=== PATIENT | male | born 1950 | race African-American/Black ===

== ENCOUNTER 2017-06-18 03:54 | Inpatient (IN) | payer MEDICARE ==
[2017-06-18 04:27] LABS: Bilirubin Small (Negative); Blood, Urine Negative (Negative); Clarity CLEAR (Clear); Glucose, Urine (Dipstick) 100 mg/dL (Negative); Leukocyte Negative (Negative); Nitrite Negative (Negative); Protein, Urine (Dipstick) 100 mg/dL (Neg-Trace); Specific Gravity, Urine 1.028 (1.002-1.036); pH, Urine 5.5 (5.0-9.0)
[2017-06-18 04:29] LABS: #Lymphocytes 0.4 thou/uL (1.20-3.40); #Monocytes 0.3 thou/uL (0.11-0.59); #Neutrophils 1.8 thou/uL (1.40-6.50); %Basophils 0.1 % (0.0-1.0); %Eosinophils 1.3 % (0.0-10.0); %Lymphocytes 15.2 % (21.0-51.0); %Monocytes 11.1 % (0.0-10.0); %Neutrophils 72.3 % (42.0-75.0); Hemoglobin 12.9 g/dL (14.0-18.0); Mean Corpuscular HGB CONC 33.2 g/dL (32.0-36.0); Mean Corpuscular Hemoglobin 30.2 pg (27.0-31.0); Mean Platelet Volume 6.6 fL (7.4-10.4); Platelet Count 140 thou/uL (130-400); RBC Distribution Width 11.8 % (11.5-14.5); Red Blood Cell (RBC) Count 4.26 mill/uL (4.70-6.10); White Blood Cell (WBC) Count 2.5 thou/uL (4.8-10.8)
[2017-06-18 04:30] LABS: Bacteria/HPF None Seen HPF (None Seen); Pathc Cast-AUWi Flag 2.32 (0-2.49); Squamous Epithelial 0-3 HPF (0-3); WBC/HPF 0-3 HPF (0-3)
[2017-06-18 04:33] LABS: Hyaline Casts/LPF 0-3 HYALINE CAST LPF (0-3 Hyaline)
[2017-06-18 04:34] LABS: Amphetamine Not Detected (NotDetected); Barbiturates Screen Not Detected (NotDetected); Benzodiazepine Screen Not Detected (NotDetected); Cocaine Metabolite Screen Detected (NotDetected); Medtox Control Line Valid? VALID (VALID); Medtox Reader # READER 1; Methadone Not Detected (NotDetected); Methamphetamine Not Detected (NotDetected); Opiate Screen Not Detected (NotDetected); Oxycodone Screen Not Detected (NotDetected); Phencyclidine (PCP) Not Detected (NotDetected); THC/Cannabinoid Screen Not Detected (NotDetected); Tricyclic Screen Not Detected (NotDetected)
[2017-06-18 04:36] LABS: PTT 25.7 SEC (22.9-36.1)
[2017-06-18 04:38] LABS: D-Dimer Test 0.3 *mcg/mL (0.27-0.43)
[2017-06-18 04:38] LABS: Actual Bicarbonate (HCO3a) 24.7 mEq/L (22-26); Base Excess (BEa) -1.6 mEq/L (0 (+/-) 2.5); CO2 Tension 49.8 mmHg (35.0-45.0); O2 Tension (PaO2) 87.4 mmHg (80.0-100.0); pH, Arterial 7.31 (7.35-7.45)
[2017-06-18 04:39] LABS: Hematocrit-ABG 36.7 % (42.0-52.0); Hemoglobin (Hb) 8.7 g/dL (14.0-18.0)
[2017-06-18 04:40] LABS: Analyzer IN Cardio ER; Calcium, Ionized 1.1 mmol/L (1.12-1.30); Puncture Site RRA
[2017-06-18] MEDS ORDERED: Propofol 1,000 MG/100 ML VIAL IV ONE (04:40)
[2017-06-18 04:41] LABS: INR-International Normal Ratio 1.1; Prothrombin Time 14.4 SEC (12.0-14.7)
[2017-06-18 04:43] LABS: ALT (SGPT) 24 U/L (8-55); AST (SGOT) 46 U/L (5-34); Acetaminophen Less than 6.0 mcg/mL (10.0-30.0); Albumin 3.3 g/dL (3.4-4.8); Alcohol Less than 10 mg/dL (Less than 10); Alkaline Phosphatase 94 U/L (40-150); Anion Gap 10 mmol/L (10-20); BUN (Urea Nitrogen) 11 mg/dL (8.4-25.7); Bilirubin, Total 0.5 mg/dL (0.2-1.2); CK (CPK) 575 U/L (30-200); Calc. Creatinine Clearance 0 mL/min (70-130); Calcium 8.1 mg/dL (7.8-10.44); Carbon Dioxide 25 mmol/L (23-31); Chloride 107 mmol/L (98-107); Estimated GFR-MDRD Greater than 90; Globulin 3.1 g/dL (2.4-3.5); Glucose 162 mg/dL (80-115); Lipase 24 U/L (8-78); Protein, Total 6.4 g/dL (5.8-8.1); Salicylate Less than 8.0 mg/dL (15.0-30.0); Sodium 139 mmol/L (136-145)
[2017-06-18] MEDS ORDERED: Fosphenytoin Sodium 1,500 MG in Sodium Chloride 0.9% 50 ML IVPB SCH (04:45)
[2017-06-18 04:48] LABS: CKMB 6.2 ng/mL (0-6.6); Troponin I Less than 0.010 ng/mL (< 0.028)
[2017-06-18 04:52] LABS: Potassium 2.9 mmol/L (3.5-5.1)
[2017-06-18] MEDS ORDERED: Potassium Chloride 20 MEQ TAB ONE (05:00)
--- NOTE | 2017-06-18 05:10 | PDOC.FPRHP ---
- History of Present Illness Chief Complaint: Seizure History of Present Illness: History from ER physician, via EMS. [id number] presents to the ED via EMS, intubated, s/p seizure activity. EMS reports pt fell out of bed, was unresponsive on scene , intubated due to respiratory rate of 30-36/min, and given 2 mg Ativan, 30 mg Etomidate, and 100 mg Hemanth. EMS reports that don't have any hx on pt. Son reports father was seizing for 15-20 minutes, "full body twitching", until EMS arrived and intubated him. Son reports father had no complaints of pain, fever, chills, sweats, or headache of late. Son does live at home with father. Son reports no history of seizures. Son reports that father does have HIV, but he doesn't know any of the patient's medications. The son reports his father is seen at the [facility] in [place] to the best of his knowledge, he thinks he gets his prescriptions from [facility] in [facility]. ED Course: In the ER patient was given NS bolus, fosphenytoin, propofol drip, and Kdur - Allergies/Adverse Reactions Allergies Allergy/AdvReac Type Severity Reaction Status Date / Time No Known Drug Allergies Allergy Unverified 06/18/17 04:39 - Home Medications Comments: Son does not know prescriptions, thinks father gets meds from [facility] in [facility] - History PMHx: HIV, son does not know more PSHx: unknown FHx: unknown Social: 1ppd smoker, sparse alcohol, no drugs to knowledge of son - Review of Systems ROS unobtainable: due to endotracheal tube (history taken from son as able) General: denies: fever/chills, fatigue Respiratory: denies: cough, shortness of breath Cardiovascular: denies: chest pain Gastrointestinal: denies: nausea, vomiting, diarrhea, abdominal pain Neurological: reports: seizure. denies: syncope, weakness - Vital signs BP: 202/120 HR: 91 RR: 14 Tmax: 98.1 Pox: 97% on vent Wt: 74.66 - Physical Exam Constitutional: other (intubated, sedated) HEENT: normocephalic and atraumatic, conjunctiva clear, TM's clear and intact, MMM -HEENT: pupils reactive, 3mm bilaterally on propofol Heart: RRR, normal S1/S2, no murmurs/rubs/gallops Lungs: good air movement -Lungs: mild rhonchi throughout, no wheezes Abdomen: soft, bowel sounds present, no masses/distention, other (poor rectal tone) Musculoskeletal: normal structure -Neurological: upgoing babinski bilaterally Skin: no rash/lesions, capillary refill <2 seconds FMR H&P: Results - Labs Result Diagrams: 06/18/17 04:19 06/18/17 04:20 Lab results: WBC 2.5 thou/uL (4.8-10.8) L 06/18/17 04:19 Hgb 12.9 g/dL (14.0-18.0) L 06/18/17 04:19 Hct 38.8 % (42.0-52.0) L 06/18/17 04:19 MCV 91.0 fl (80.0-94.0) 06/18/17 04:19 Plt Count 140 thou/uL (130-400) 06/18/17 04:19 Neutrophils % 72.3 % (42.0-75.0) 06/18/17 04:19 ABG pH 7.31 (7.35-7.45) L 06/18/17 04:21 ABG pCO2 49.8 mmHg (35.0-45.0) H 06/18/17 04:21 ABG pO2 87.4 mmHg (80.0-100.0) 06/18/17 04:21 Sodium 139 mmol/L (136-145) 06/18/17 04:20 Potassium 2.9 mmol/L (3.5-5.1) L* 06/18/17 04:20 Chloride 107 mmol/L (98-107) 06/18/17 04:20 Carbon Dioxide 25 mmol/L (23-31) 06/18/17 04:20 BUN 11 mg/dL (8.4-25.7) 06/18/17 04:20 Creatinine 0.79 mg/dL (0.6-1.3) 06/18/17 04:20 Glucose 162 mg/dL (80-115) H 06/18/17 04:20 Lactic Acid 3.5 mmol/L (0.5-2.2) H 06/18/17 04:20 Calcium 8.1 mg/dL (7.8-10.44) 06/18/17 04:20 Total Bilirubin 0.5 mg/dL (0.2-1.2) 06/18/17 04:20 AST 46 U/L (5-34) H 06/18/17 04:20 ALT 24 U/L (8-55) 06/18/17 04:20 Alkaline Phosphatase 94 U/L (40-150) 06/18/17 04:20 Ammonia 25 umol/L (18-72) 06/18/17 04:19 Creatine Kinase 575 U/L (30-200) H 06/18/17 04:20 CK-MB (CK-2) 6.2 ng/mL (0-6.6) 06/18/17 04:20 B-Natriuretic Peptide 15.9 pg/mL (0-100) 06/18/17 04:20 Serum Total Protein 6.4 g/dL (5.8-8.1) 06/18/17 04:20 Albumin 3.3 g/dL (3.4-4.8) L 06/18/17 04:20 Lipase 24 U/L (8-78) 06/18/17 04:20 Urine Ketones Negative mg/dL (Negative) 06/18/17 04:02 Urine Blood Negative (Negative) 06/18/17 04:02 Urine Nitrite Negative (Negative) 06/18/17 04:02 Ur Leukocyte Esterase Negative (Negative) 06/18/17 04:02 Urine RBC 4-6 HPF (0-3) 06/18/17 04:02 Urine WBC 0-3 HPF (0-3) 06/18/17 04:02 Ur Squamous Epith Cells 0-3 HPF (0-3) 06/18/17 04:02 Urine Bacteria None Seen HPF (None Seen) 06/18/17 04:02 Laboratory Tests 06/18/17 06/18/17 06/18/17 04:02 04:19 04:20 CK-MB (CK-2) Troponin I TSH 3rd Generation 0.5076 Prolactin 37.55 H Acetaminophen U Cocaine Metab Screen Detected H Plasma Alcohol 06/18/17 06/18/17 04:20 04:20 CK-MB (CK-2) 6.2 Troponin I Less than 0.010 TSH 3rd Generation Prolactin Acetaminophen Less than 6.0 L U Cocaine Metab Screen Plasma Alcohol Less than 10 - EKG Interpretation EKG: Sinus tachycardia with signs of ischemia FMR H&P: A/P - Problem List (1) Lactic acidosis Current Visit: Yes Status: Acute Code(s): E87.2 - ACIDOSIS (2) HIV (human immunodeficiency virus infection) Current Visit: Yes Status: Acute (3) Intracranial hemorrhage Current Visit: Yes Status: Acute Code(s): I62.9 - NONTRAUMATIC INTRACRANIAL HEMORRHAGE, UNSPECIFIED (4) Seizure Current Visit: Yes Status: Acute Code(s): R56.9 - UNSPECIFIED CONVULSIONS (5) Hypokalemia Current Visit: Yes Status: Acute Code(s): E87.6 - HYPOKALEMIA - Plan # Intracranial Hemorrhage - Neurosurgery consulted, recs appreciated - labetalol to keep SBP <160 PRN - MRI brain, MRA, [place] pending - anticipate atraumatic sourche of bleed per neurosurg. - UDS positive for cocaine # S/p Status Epilepticus - Ativan PRN - Fosphenytoin in ED - Sedation protocol - Neurology consulted, recs appreciated - Intubated, pulm consulted, recs appreciated #HIV - unknown medications - call [facility] in [facility], [facility] [place] - Viral load, CD4, Hep C AB, RPR pending # HTN emergency - SBP to 202 in ED - monitor closely - Labetalol PRN to maintain SBP <160 # Code - full, per family in ED # Dispo - Guarded FMR H&P: Upper Level - Pertinent history Patient found down and seizing this morning. He continued to seize for appx 10- 15 minutes until EMS arrived and performed RSI. Per son, patient was well yesterday. He has HIV per son but no other medical problems. - Pertinent findings Gen: intubated and sedated. WD/WN male HEENT: No major signs of head trauma, pupils equal and reactive to light. Resp: CTA,breathing on the ventilator CV: tachycardic, normal S1, S2, no murmur ABD: Soft nontender, nondistended, normal BS Extremities: no edema, pulses 2+ Neuro: limited by sedation and paralytic. PERRLA, Babinski reflex positive. Poor rectal tone (likely 2/2 to paralytic). No movements. - Plan Date/Time: 06/18/17 0797 IBogdan, have evaluated this patient and agree with findings/plan as outlined by culinary intern resident. Pertinent changes/additions are listed here. 1.Status epilepticus- Patient is on phosphenytoin and propofol. This is a new onset seizure likely 2/2 to parenchymal bleed. Neurosurgery has seen patient in regards to bleed and we will wait for neurology recommendations. Continue propofol drip until then. 2.Suspect structural brain abnormality- likely cause of parenchymal bleed. Will characterize with MRI and MRA 3.Intracranial hemmorage- BP control and Neurosurg recs. 4.HIV- will request drug hx from [facility] in [place] and likely consult Dr. Conklin once hx is more clear 5.Hypokalemia- got one dose of Kdur in ER. Will recheck later this afternoon. 6.Hypertensive emergency- Will keep BP systolic below 160 unless Neuro surg has other recommendations. Attending Addendum - Attending Addendum Date/Time: 06/18/17 8328 I personally evaluated the patient and discussed the management with Dr. Guajardo at time of admission this morning. I agree with the History, Examination, Assessment and Plan documented above with any addition or exceptions noted below.
[2017-06-18] MEDS ORDERED: Ondansetron ODT 4 MG TAB SL PRN (06:42)
[2017-06-18] MEDS ORDERED: Ondansetron HCl/PF 4 MG/2 ML Vial IVP PRN ×2 (06:42→06:53)
[2017-06-18] MEDS ORDERED: Morphine 2 MG/ML SYRINGE SLOW IVP PRN ×2 (06:47→07:06)
[2017-06-18] MEDS ORDERED: Fentanyl BOLUS 250 ML IVPB PRN ×2 (06:47→07:06)
[2017-06-18] MEDS ORDERED: Propofol 1,000 MG/100 ML VIAL IV PRN ×2 (06:47→07:06)
[2017-06-18] MEDS ORDERED: Lorazepam 2 MG/ML VIAL SLOW IVP PRN (06:47)
[2017-06-18] MEDS ORDERED: fentaNYL Citrate/PF 2,000 MCG in Sodium Chloride 0.9% 60 ML IV SCH ×2 (06:47→07:06)
[2017-06-18] MEDS ORDERED: CCU Electrolyte Replacement 1 EACH IVPB ONE (06:53)
[2017-06-18] MEDS ORDERED: Labetalol HCl 100 MG/20 ML VIAL SLOW IVP PRN (06:53)
[2017-06-18] MEDS ORDERED: Sedation Protocol FS ONE (06:53)
[2017-06-18] MEDS ORDERED: Lorazepam 2 MG/ML VIAL IVPB PRN (06:53)
[2017-06-18] MEDS ORDERED: Morphine 4 MG/ML VIAL SLOW IVP PRN ×2 (07:00→07:15)
[2017-06-18] MEDS ORDERED: Potassium Phosphate 9 MMOL in Sodium Chloride 0.9% 100 ML IVPB PRN (07:06)
[2017-06-18] MEDS ORDERED: Potassium Phosphate 12 MMOL in Sodium Chloride 0.9% 250 ML 250 ML IV PRN (07:06)
[2017-06-18] MEDS ORDERED: Potassium Chloride 20 MEQ TAB PO PRN (07:06)
[2017-06-18] MEDS ORDERED: Potassium Phosphate 15 MMOL in Sodium Chloride 0.9% 250 ML 250 ML IV PRN (07:06)
[2017-06-18] MEDS ORDERED: Magnesium 2 GM/NS 0.9% 100 ML 2 GM in Premix Bag 1 BAG IVPB PRN (07:06)
[2017-06-18] MEDS ORDERED: Potassium Chloride 40 MEQ in Premix Bag 1 BAG IVPB PRN (07:06)
[2017-06-18] MEDS ORDERED: Magnesium Oxide 400 MG TAB PO PRN ×2 (07:06)
--- NOTE | 2017-06-18 07:09 | CON ---
ATTENDING PHYSICIAN: Dr. Lico Sadler HISTORY OF PRESENT ILLNESS: The patient is a 66-year-old male with a past medical history of HIV, not currently on any medications, prior cocaine abuse, who presented to the emergency department per EMS after a seizure which occurred at home. His son is at the bedside and the history is obtained primarily from the family and EMS reports. Son reports he heard some moaning from the patient's room, he went to check on him, he had fallen from the bed and was actively seizing with tonic clonic activity. He contacted EMS, when they arrived, the patient had been seizing for approximately 20 minutes as well as was having difficulty protecting his airway and was therefore treated with 2 mg of Ativan, 30 mg etomidate and 100 mg of rocuronium and intubated. He presented to the emergency department and CT head was done shortly after arrival, which was notable for a left frontal intracranial hemorrhage. Neurosurgery Service was consulted for further evaluation of this patient. I presented shortly after and saw the patient at the bedside in the emergency department. His exam was limited by his recent medications for intubation as well as current propofol drip. His pupils were pinpoint and nonreactive. He did not have a corneal or gag reflex. He was not overbreathing the ventilator. There was no response to any stimulation. PAST MEDICAL HISTORY: Notable for HIV positive. He is not currently on medications and his son reports that he has not been evaluated for this condition in sometime, questionable history of hypertension, but also currently not taking any medications. PAST SURGICAL HISTORY: Unobtainable. ALLERGIES: No known drug allergies according to family. SOCIAL HISTORY: The patient does have a history of drug abuse and his drug screen is positive for cocaine. REVIEW OF SYSTEMS: Unobtainable. PHYSICAL EXAMINATION: VITAL SIGNS: Blood pressure is 172/128, pulse is 109, respiration rate is 14. He is 100% on the ventilator. Limited by the patient is currently intubated with recent medication administration shortly before arrival he received Ativan, rocuronium and etomidate.GCS 3. Pupils are equal and pinpoint, nonreactive. He has no corneal reflex or gag reflex. He is not overbreathing the ventilator. He has no response to stimulation. No evidence of external trauma. ASSESSMENT AND PLAN: This is a 66-year-old male, HIV positive, not currently on any medications. Positive drug abuser with positive cocaine on his drug screen in the emergency department who was found down by his family with active seizure activity and found to have acute left frontal intracranial hemorrhage. Although the patient's blood pressure was elevated in the emergency department location of the ICH is less supportive of a hypertensive etiology. Considering his HIV, differential diagnosis concerns of infectious source as well as underlying lesion, mass, or vascular abnormality. We will evaluate the patient further with MRI of the brain with and without contrast as well as MRA of the head and neck and a transesophageal echo. He is being admitted to the ICU primarily by the Family Medicine Service and they are managing his other medical problems. He was found to have hypokalemia on CMP. Positive lactic acid. His coagulation panel is unremarkable. Critical Care is also assisting with management of this patient. I have discussed this plan with Dr. Sadler who is in agreement. ARIES
[2017-06-18] MEDS: Potassium Chloride 40 MEQ in Sodium Chloride 0.9% 250 ML 250 ML IVPB PRN ×2 (07:49→11:44)
[2017-06-18 08:59] LABS: Lactic Acid 3.8 mmol/L (0.5-2.2)
[2017-06-18] MEDS: Lorazepam 2 MG/ML VIAL SLOW IVP PRN ×2 (09:08→21:56)
--- NOTE | 2017-06-18 09:21 | RAD ---
PORTABLE SUPINE CHEST: HISTORY: Assess ET tube placement and NG tube placement. FINDINGS: ET tube and NG tube appear adequate in position. NG tube has tip overlying the upper gastric fundus. Lungs appear well aerated and clear of confluent infiltrate. Mild atelectasis in the right lung ba se cannot be excluded. The lungs are otherwise clear. IMPRESSION: Question right basilar atelectasis or infiltrate. POS: [facility]
[2017-06-18 09:27] LABS: Syphilis Antibody Index 14.82 S/CO (<1.00 Non-Reactive)
--- NOTE | 2017-06-18 10:06 | RAD ---
PORTABLE AP CHEST: Date: 06/18/17 HISTORY: Evaluate nasogastric tube placement. COMPARISON: 06/18/17 at 0411 hours. FINDINGS: The upper-mid chest are obscured from view. Nasogastric tube is again noted in place, but the nasogas tric tube has been withdrawn , with distal tip overlying the distal esophagus. Nasogastric tube shoul d be advanced. Visualized upper abdomen demonstrates a normal bowel gas pattern. There is elevation o f the right hemidiaphragm. IMPRESSION: The nasogastric tube has been withdrawn and the distal tip overlies the distal esophagus. POS: [facility]
--- NOTE | 2017-06-18 10:15 | CT ---
PRELIMINARY REPORT/[facility]/EMERGENTY AFTER-HOURS PROCEDURE CT Head Without Intravenous Contrast CLINICAL HISTORY: 66 years old, male; Signs and symptoms; Altered mental status/memory loss; Other: Seizure; Weakness; Patient HX: Additional history obtained from ems, m66 presents to the ed via ems, intubated, S/P seiz ure activity. Ems reports pt fell out of bed, was unresponsive on scene, intubated due to respiratory rate of 30-36/min, and given 2 mg ativan, 30 mg etomidate, and 100 mg lyssa. Ems rep orts that don't have any HX on pt. TECHNIQUE: Axial computed tomography images of the head/brain without intravenous contrast. COMPARISON: No relevant prior studies available. FINDINGS: Brain: There is 3.2 x 1.2 cm intraparenchymal hematoma of the left inferior frontal lobe. There is ad jacent vasogenic edema and slight effacement of the anterior interhemispheric fissure inferiorly with focal rightward bulge of the left medial inferior frontal lobe. There are patchy areas of low attentuation within the subcortical and periventricular white matter. This is nonspecific but likely reflective of small vessels ischemic disease. Ventricles: Unremarkable. No ventriculomegaly. Bones/joints: There are deformities of the lamina papyracea. No acute fracture. Soft tissues: Unremarkable. Sinuses: Unremarkable as visualized. No acute sinusitis. Mastoid air cells: Unremarkable as visualized. No mastoid effusion. IMPRESSION: Moderate size intraparenchymal hematoma of the left inferior frontal lobe. FINAL REPORT CT BRAIN WITHOUT CONTRAST: Date: 06/18/17 FINDINGS/IMPRESSION: I agree with the preliminary report given by Misha. POS: [facility]
--- NOTE | 2017-06-18 10:18 | CT ---
PRELIMINARY REPORT/[facility]/EMERGENTY AFTER-HOURS PROCEDURE CT Cervical Spine Without Intravenous Contrast CLINICAL HISTORY: 66 years old, male; Signs and symptoms; Altered mental status/memory loss; Other: Seizure; Weakness; Patient HX: Additional history obtained from ems, m66 presents to the ed via ems, intubated, S/P seiz ure activity. Ems reports pt fell out of bed, was unresponsive on scene, intubated due to respiratory rate of 30-36/min, and given 2 mg ativan, 30 mg etomidate, and 100 mg lyssa. Ems reports that don't mcdonald ve any HX on pt. TECHNIQUE: Axial computed tomography images of the cervical spine without intravenous contrast. Coronal and sagi ttal reformatted images were created and reviewed. COMPARISON: No relevant prior studies available. FINDINGS: Vertebrae: Unremarkable. No acute fracture. Discs/spinal canal/neural foramina: Degenerative changes of the cervical spine. There is neuroforamin al narrowing with moderate to significant narrowing of the right C3-C4 and moderate narrowing of the left C3-C4, moderate narrowing of left C4-C5 and mild to moderate narrowing of the right C4-C5, moderate to significant narrowing of bilateral C5-C6. There is canal narrowing at C3-C4, C4-C5, C5-C6, C6-C7. Soft tissues: Unremarkable. Lung apices: Unremarkable as visualized. IMPRESSION: No acute fracture. Degenerative changes of the cervical spine with multiple levels of neuroforaminal narrowing andcanal narrowing as above. THIS REPORT CONTAINS FINDINGS THAT MAY BE CRITICAL TO PATIENT CARE. The findings were verbally commun icated via telephone conference with MULU Pereira at 5:48 AM CDT on 06/18/2017. The findings were acknowledged and understood. Thank you for allowing us to participate in the care of your patient. Dictated and Authenticated by: Agatha Brown DO 06/18/2017 5:48 AM Central Time ([place] & [place]) FINAL REPORT CT CERVICAL SPINE WITH CORONAL AND SAGITTAL REFORMATIONS: Date: 06/18/17 FINDINGS/IMPRESSION: I agree with the preliminary report given by Misha. POS: [facility]
[2017-06-18] MEDS ORDERED: levETIRAcetam In NaCl (Iso-Os) 1,500 MG in Premix Bag 1 BAG IVPB SCH ×2 (10:30)
[2017-06-18] MEDS ORDERED: Potassium Chloride 40 MEQ in Sodium Chloride 0.9% 250 ML 250 ML IVPB SCH (10:30)
--- NOTE | 2017-06-18 11:03 | CT ---
CT HEAD NONCONTRAST: CLINICAL HISTORY: Intracerebral hemorrhage. Stroke. COMPARISON: 06/18/2017 FINDINGS: Re-demonstration of a hemorrhage at the inferior left frontal lobe with surrounding mild vasogenic ed franklin. This region is limited in assessment due to the adjacent floor of the anterior cranial fossa an d resultant streak artifact. No new midline shift of significance is visualized. There is mild picture copyist amena microvascular ischemic disease. The exam is otherwise grossly stable. IMPRESSION: Redemonstration of cerebral hemorrhage at the inferior left frontal lobe. No significant midline yaz ft. POS: [facility]
[2017-06-18 11:05] LABS: Hep C Index 14.06 S/CO (0-0.79)
[2017-06-18 11:09] LABS: Hep C IgG Ab Reflex HepC Qnt (NonReactive)
[2017-06-18] MEDS: Sodium Chloride 0.9% 1,000 ML IV SCH ×3 (11:44→22:32)
[2017-06-18] MEDS ORDERED: Pantoprazole 40 MG VIAL IVP SCH (12:00)
--- NOTE | 2017-06-18 12:26 | CON ---
DATE OF CONSULTATION: 06/18/2017 SERVICE: Pulmonary Medicine REASON FOR CONSULTATION: Intubated patient. HISTORY OF PRESENT ILLNESS: The patient is a 66-year-old male who presented to the hospital after se izure activity. He was intubated in the field and brought to the emergency department. Apparently t here was full body seizures that occurred for a period of 15-20 minutes. Once he got intubated, he e nded up getting a paralytic. At that point, the seizure activity at the least stopped. He was broug ht to the emergency department. In the Emergency Department, he was given fosphenytoin, and initiate d on propofol drip. A dose of antibiotic was also given. Otherwise, I cannot get any additional edwin ments of the history from the patient. He is about to go down for a MRI. PAST MEDICAL HISTORY: HIV, otherwise unknown. PAST SURGICAL HISTORY: Unknown. FAMILY HISTORY: Unknown. SOCIAL HISTORY: He smokes a pack a day. He uses alcohol occasionally. No illicit drugs based on so n's knowledge. ALLERGIES: No known drug allergies. MEDICATIONS LIST: A list of the patient's inpatient medications were reviewed. Multiple small updat es were made. REVIEW OF SYSTEMS: This cannot be obtained. The patient is currently intubated. PHYSICAL EXAMINATION: VITAL SIGNS: Afebrile, pulse 107, blood pressure 159/113, respirations 33, saturation 91% on 60% FiO 2. HEENT: Normocephalic, atraumatic. Sclerae are white, conjunctivae pink. Oral mucosa is moist witho ut lesions. LUNGS: Decent air entry. There is no prolonged expiratory phase, wheezing, rhonchi or crackles. HEART: Normal rate, regular. ABDOMEN: Soft, nontender, nondistended. Bowel sounds are positive. MUSCULOSKELETAL: No cyanosis or clubbing. There is no pitting in the bilateral lower extremities. LABORATORY DATA: WBC 2.5, hemoglobin 12.9, platelets 140,000. Neutrophil count is 72%. INR 1.1, D- dimer 0.3. PH 7.31, pCO2 49, pO2 87. Potassium 2.9, glucose 162. Otherwise, basic metabolic profil e is completely unremarkable. Total bilirubin 0.5. AST 46. Liver function studies are otherwise un remarkable. CK 575, but troponin is negative x1. BNP is normal. Albumin 3.3 and liver function mohamud dies are otherwise unremarkable. TSH 0.5. Lactate is up trending to 3.8. Prolactin is 37.55, landon ia 25. Urinalysis is essentially unremarkable. Urine drug screen is positive for cocaine metabolite s. Salicylate, acetaminophen, and alcohol are all unremarkable. Syphilis titers are pending. IMAGING: KUB demonstrates enteric catheter coursing in the distal esophagus. Chest x-ray demonstrat es endotracheal tube is at the thoracic inlet, well above the level of the walter. Enteric catheter courses and terminates at the level of the distal esophagus. There is an infiltrate in the right bas e. CT of the brain demonstrates a small intracranial hemorrhage in the left frontal region of the brain at the base of the skull. It is not significantly changed compared to prior. ASSESSMENT: 1. Status epilepticus. 2. Intracranial hemorrhage. 3. Cocaine abuse. 4. Human immunodeficiency virus. PLAN: Once the patient comes back, we will put him on a sedation holiday to see whether or not any u nderlying seizure activity is still present. If he meets criteria, extubation will be considered. I f he has recurrent seizure, we will put him down with propofol drip and order a continuous EEG to mon itor his activity Pulmonary Critical Care will continue to follow very closely during this hospital stay. Critical care time: 30 minutes.
--- NOTE | 2017-06-18 13:16 | MRI ---
MR ANGIOGRAPHY OF THE NECK: [id number] imaging obtained to evaluate the extracranial carotid arteries and vertebral arteries. INDICATION: Intracranial hemorrhage. FINDINGS: Common carotid arteries appear patent and unremarkable with no focal stenosis or filling defect. No significant stenosis seen at either bulb region. The proximal ICAs appear unremarkable bilaterall y. Distal extracranial ICAs also appear unremarkable with no focal stenosis identified. Both verteb ral arteries appear patent and symmetric. IMPRESSION: Unremarkable MR angiography of neck. No evidence of carotid stenosis. POS: [facility]
--- NOTE | 2017-06-18 13:27 | MRI ---
MRI BRAIN WITH AND WITHOUT CONTRAST: Technique: Multiplanar, multisequence MRI images were obtained through the brain with pre and post co ntrast. Post contrast imaging was obtained after administering 14 cc MultiHance IV. Indication: Intracranial hemorrhage. Correlation: CT scan 06-18-17 which revealed inferior left frontal lobe hematoma. FINDINGS: The hematoma in the inferior left frontal lobe is again seen on MRI. This exhibits expected signal ch aracteristics for late subacute age with mild increased T1 and central decreased T2 signal. Very mild surrounding edema. Mild mass effect. Slight shift of the anterior falx to the right measured in the 3 mm range on axial image. There is no evidence of abnormal vascular structures that would indicate A VM. There is no evidence of restricted diffusion that would indicate acute infarct. Mild chronic ischemic white matter changes seen in the white matter of both cerebral hemispheres. Sly tricles have normal size and position. No abnormal enhancement. Intracranial internal carotid arteries and proximal cerebral arteries show flow voids. IMPRESSION: Hematoma in the inferior left frontal lobe is noted without significant interval change from recent C T. Very mild mass effect with slight midline shift of the anterior falx to the right. Mild surroundin g edema. No evidence of AVM or infarct. POS: [facility]
--- NOTE | 2017-06-18 13:27 | MRI ---
MR ANGIOGRAPHY WITH CEREBRAL CIRCULATION: INDICATION: Intracranial hemorrhage. FINDINGS: The intracranial internal carotid arteries appear patent with no focal stenosis identified. Anterior cerebral arteries and middle cerebral arteries appear patent and symmetric. Basilar artery and post erior cerebral arteries appear patent with no focal stenosis or occlusion. No abnormal vessels are s een. No evidence of aneurysm. IMPRESSION: Unremarkable MR angiography of cerebral circulation. POS: [facility]
[2017-06-18 13:54] LABS: Syphilis Antibody INDETERMINATE (Nonreactive)
[2017-06-18] MEDS ORDERED: Gadobenate Dimeglumine 529 MG/1 ML (20ML VIAL) ONE (16:30)
--- NOTE | 2017-06-18 17:35 | CON ---
DATE OF CONSULTATION: 06/18/2017 Seen and examined, agreed with Tatiana Lord's note for additional details. HISTORY OF PRESENT ILLNESS: Mr. Decker is a 66-year-old man who had sudden onset of seizure was eval uated in the emergency room. He was intubated for airway protection. CT scan shows a small left fro ntal hemorrhage. Additional imaging has included MRI of the brain as well as MRA of the head and neck. These did not reveal any underlying pathology and specifically no tumor or aneurysm to explain the hemorrhage. IMPRESSION AND PLAN: The patient has a small left frontal hemorrhage. There are no plans for neuros urgical intervention, they do expect him to recover from this. He does not have any threatening unde rlying lesion and I would conclude that this is likely related to hypertensive event. I would recomm end a followup CT scan in 4 weeks. No further neurosurgical recommendations at this time.
[2017-06-18] MEDS ORDERED: Acetaminophen 500 MG TAB PER TUBE PRN (17:51)
[2017-06-18] MEDS: Pantoprazole 40 MG VIAL IVP SCH (21:29)
[2017-06-18 22:03] LABS: Potassium 3.7 mmol/L (3.5-5.1)
--- NOTE | 2017-06-19 01:40 | CON ---
DATE OF CONSULTATION: 06/18/2017 REFERRING PROVIDER: Tatiana Lord PA-C REASON FOR CONSULTATION: Seizure. HISTORY OF PRESENT ILLNESS: Mr. Decker is a 66-year-old -Malaysian male who has been consulted for evaluation of seizure. History is very limited as patient is unable to provide and there are no family member present at bedside, thus most of the history is obtained from the patient's dictated H and P note and the patient's medical records. Apparently, the patient had fell out of bed and was u nresponsive on the scene. He was then intubated and on scene due to respiratory rate of 30 to 36, he was given 2 mg of Ativan. He apparently had seizure-like activity at home. On arrival here, he was noted to have 2 more episodes of seizures. He had a CT head without contrast which did show acute l eft frontal intracerebral hemorrhage. He has been started on Keppra 500 mg twice daily and has not h ad any seizures since that time. Per nurse, off sedation, he is able to follow commands and is noted to be somewhat weak on the right side compared to the left side. PAST MEDICAL HISTORY: Unknown. PAST SURGICAL HISTORY: Unknown. SOCIAL HISTORY: Unknown. FAMILY HISTORY: Unknown. CURRENT MEDICATIONS: Unknown. ALLERGIES: Unknown. REVIEW OF SYSTEMS: Unable to perform. PHYSICAL EXAMINATION: VITAL SIGNS: Blood pressure 111/68, pulse of 97, temperature of 99.9 with a T-max of 102.8, respirat ion rate of 26 on mechanical ventilation. GENERAL: Intubated, mildly sedated -Malaysian male in no apparent distress. RESPIRATORY: Clear to auscultation bilaterally. CARDIOVASCULAR: Regular rate and rhythm. NEUROLOGIC: Mental status: The patient is intubated and mildly sedated. He is able to follow some simple commands. He opens his eyes to verbal stimuli. Cranial nerves: Pupils are 3 mm and reactive . He has bilateral droopiness in his eyelid. Rest of the cranial nerve exam could not be performed. Motor exam showed normal tone and bulk with 5/5 strength in the left upper and left lower extremity . He has 4/5 strength in the right upper extremity. Sensory: He does withdraw to pain in both uppe r and lower extremities. Gait and Romberg coordination could not be tested. LABORATORY DATA: Labs are reviewed, which included CBC, CMP, urinalysis, urine drug screen, RPR, whi ch is significant for WBC of 2.5, hemoglobin 12.9, hematocrit of 38.8, potassium of 2.9. Lactic acid of 3.8. CPK of 575, AST of 46. Urine drug screen showed cocaine positive. RPR was reactive with 1 :1 titer. Hepatitis C was positive. IMAGING STUDIES: MRI brain without contrast was reviewed, which showed small acute left frontal intr acerebral hemorrhage with very mild mass effect and surrounding edema. MRA head and neck were review ed, which showed no acute intracranial or extracranial vascular abnormality. IMPRESSION: 1. Left frontal intracranial cerebral hemorrhage. 2. Generalized tonic clonic seizure, likely due to #1. 3. Polysubstance abuse. Mr. Decker is a 66-year-old -Malaysian male who presented with the tonic-clonic seizure. He is found to have left intracranial hemorrhage which is the likely possibility factor for his seizures. I agree with starting him on Keppra 500 mg b.i.d., continue close monitoring. Continue with seizure precautions. Thank you for consultation.
[2017-06-19 04:45] LABS: ALT (SGPT) 21 U/L (8-55); AST (SGOT) 40 U/L (5-34); Albumin 3.1 g/dL (3.4-4.8); Alkaline Phosphatase 79 U/L (40-150); Anion Gap 10 mmol/L (10-20); BUN (Urea Nitrogen) 8 mg/dL (8.4-25.7); Bilirubin, Total 0.8 mg/dL (0.2-1.2); Calc. Creatinine Clearance 111 mL/min (70-130); Calcium 8.1 mg/dL (7.8-10.44); Carbon Dioxide 25 mmol/L (23-31); Chloride 112 mmol/L (98-107); Estimated GFR-MDRD Greater than 90; Globulin 2.9 g/dL (2.4-3.5); Glucose 119 mg/dL (80-115); Potassium 3.5 mmol/L (3.5-5.1); Sodium 143 mmol/L (136-145)
[2017-06-19 05:09] LABS: Band 15 % (5-11); Hemoglobin 11.9 g/dL (14.0-18.0); Lymphocytes 12 % (21-51); MDiff Complete? YES; Mean Corpuscular HGB CONC 31.6 g/dL (32.0-36.0); Mean Corpuscular Hemoglobin 29.6 pg (27.0-31.0); Mean Corpuscular Volume 93.6 fl (80.0-94.0); Mean Platelet Volume 7.3 fL (7.4-10.4); Metamyelocyte 1 % (0-0); Monocytes 12 % (0-10); Neutrophil 54 % (42-75); PLT Morphology Comment Appears Adequate; Platelet Count 141 thou/uL (130-400); RBC Distribution Width 12.2 % (11.5-14.5); RBC Morphology Normal; Reactive Lymphocytes 6 % (0-10); Red Blood Cell (RBC) Count 4.02 mill/uL (4.70-6.10); White Blood Cell (WBC) Count 8.1 thou/uL (4.8-10.8)
[2017-06-19] MEDS: Sodium Chloride 0.9% 1,000 ML IV SCH (05:17)
--- NOTE | 2017-06-19 08:11 | PRG ---
DATE OF SERVICE: 06/19/2017 ATTENDING PHYSICIAN: Lico Sadler M.D. The patient is a 66-year-old male with past medical history of HIV and hypertension with acute left f rontal intracranial hemorrhage and seizure. His MRI and MRA were negative for any underlying mass, v ascular abnormality or other acute changes outside of his acute bleed and hematoma formation. Given this, his event is presumably related to hypotensive episode. This is likely heated by his cocaine a buse. He had no overnight events. He opens his eyes to voice. His pupils are equal and reactive to light. He is moving all extremitie s. He is not following commands. No acute neurosurgical intervention is anticipated at this time. His cervical collar can be removed. We will plan to follow up with the patient in approximately 4 weeks with repeat head CT in our offi ce. The patient should remain off any anticoagulants or aspirin. Please reach out to Neurosurgery S ervice for additional questions or concerns.
[2017-06-19] MEDS: Pantoprazole 40 MG VIAL IVP SCH (08:12)
--- NOTE | 2017-06-19 08:22 | PDOC.FM ---
- Subjective Subjective: Patient tolerating spontaneous breathing trial this morning. Hopeful for extubation per Pulm. He is following simple commands. Afebriel, stable and normal vital signs. - Objective MAR Reviewed: Yes Vital Signs & Weight: Vital Signs (12 hours) Temp Pulse Resp BP 06/19/17 07:33 84 06/19/17 07:00 98.6 F 06/19/17 06:45 84 119/65 06/19/17 05:35 13 06/19/17 04:00 98.5 F 24 H 06/19/17 02:00 13 06/19/17 00:00 99.0 F 16 06/18/17 22:00 20 Weight Admit Weight 72.2 kg Weight 71.1 kg Most Recent Monitor Data Heart Rate from ECG 90 NIBP 134/69 NIBP BP-Mean 96 Respiration from ECG 20 SpO2 100 I&O: 06/18/17 06/19/17 06/20/17 06:59 06:59 06:59 Intake Total 3878 Output Total 500 2135 30 Balance -500 1743 -30 Result Diagrams: 06/19/17 03:34 06/19/17 03:34 <Jermaine Quiñonez - Last Filed: 06/19/17 09:24> - Objective Vital Signs & Weight: Vital Signs (12 hours) Temp Pulse Resp BP Pulse Ox 06/19/17 09:05 85 26 H 100 06/19/17 08:00 98.6 F 88 16 100 06/19/17 07:33 84 06/19/17 07:00 98.6 F 06/19/17 06:45 84 119/65 06/19/17 05:35 13 06/19/17 04:00 98.5 F 24 H 06/19/17 02:00 13 06/19/17 00:00 99.0 F 16 Weight Admit Weight 72.2 kg Weight 71.1 kg Most Recent Monitor Data Heart Rate from ECG 87 NIBP 129/86 NIBP BP-Mean 93 Respiration from ECG 24 SpO2 100 I&O: 06/18/17 06/19/17 06/20/17 06:59 06:59 06:59 Intake Total 3878 Output Total 500 2135 100 Balance -500 1743 -100 Result Diagrams: 06/19/17 03:34 06/19/17 03:34 <Sherif Yi - Last Filed: 06/19/17 10:07> Phys Exam - Physical Examination intubated and sedated HEENT: moist MMs Respiratory: no wheezing, no rales Cardiovascular: RRR, no significant murmur Gastrointestinal: soft, non-tender Musculoskeletal: no edema Neurological: moves all 4 limbs <Beto Quiñoneztraci Godwin - Last Filed: 06/19/17 09:24> Dx/Plan (1) Intracranial hemorrhage Code(s): I62.9 - NONTRAUMATIC INTRACRANIAL HEMORRHAGE, UNSPECIFIED Status: Acute Plan: Patient found down by son in what he describes as a tonic clonic seizure. EMS called and patient given Ativan 2mg for status epilepticus. He was intubated in the field and brought to [place] ED for further evaluation. CT brain revealed left frontal intraparenchymal hemorrhage. He tested positive for cocaine upon admission. Patient has a PMH of HIV but it is unknown what other conditions he may have and what medications he takes. History per son. MRA brain shows normal cerebral circulation MRA neck shows now evidence of carotid stenosis MRI brain shows a mild midline shift of falx but otherwise stable as compared to prior CT Since aneurysm and tumor have been ruled out, it is thought the etiology of bleed is hypertensive in nature, likely related to cocaine use. NS has recommended repeat CT scan in 4 weeks but otherwise has no recommendations. We will provide strict blood pressure control and monitor vitals as we await a slow recovery. (2) Seizure Code(s): R56.9 - UNSPECIFIED CONVULSIONS Status: Acute Plan: 1st time seizure at home Status epilepticus aborted with Ativan in the field Neurology believes intraparenchymal hemorrhage provoked the seizure Continue Keppra per Neuro (3) HIV (human immunodeficiency virus infection) Status: Chronic Plan: Unknown history and medication list. Son will be bringing pill bottles to hospital for more information. Will call pharmacy to verify meds and consult ID when history becomes more clear. (4) Hypokalemia Code(s): E87.6 - HYPOKALEMIA Status: Acute Plan: K: 2.9 on admission, repleted per protocol 3.5 this AM (5) Hypertensive emergency Code(s): I16.1 - HYPERTENSIVE EMERGENCY Status: Resolved Plan: elevated BP upon arrival has since resolved and has PRN labetalol ordered for control -SBP<160 mmHg - Plan Plan: Plan: -likely extubation this morning with speech evaluation PO intake -awaiting son to bring medications to hospital for further history regarding chronic medical conditions -unknown at this time if HIV being managed by ID, will need consult at some point during this hospitalization. -NS recommends no further intervention and suggests repeat CT scan in 4 weeks -Neuro recommends continuing Keppra with close monitoring <Jermaine Quiñonez - Last Filed: 06/19/17 09:24> Attending Addendum - Attending Addendum Date/Time: 06/19/17 1004 I personally evaluated the patient and discussed the management with Dr. Quiñonez I agree with the History, Examination, Assessment and Plan documented above with any addition or exceptions noted below. 66 y/o M with seizure found to be secondary to parenchymal ICH on CT scan. Bleed stable on repeat imaging. Neurosurgery and neurology consulted with no reccomendations for acute surgical intervention. Pt was started on keppra by neurology. Plans for repeat CT scan in 4 weeks. Successfully extubated this AM. Plan to TXR to stroke. BP has been below goal of <160 SBP. <Sherif Yi - Last Filed: 06/19/17 10:07>
[2017-06-19] MEDS ORDERED: Pantoprazole 40 MG VIAL IVP SCH (09:00)
[2017-06-19] MEDS ORDERED: Sodium Chloride 0.45% 1,000 ML IV SCH (09:30)
--- NOTE | 2017-06-19 09:43 | PRG ---
fDATE OF SERVICE: 06/19/2017 SERVICE: Pulmonary Medicine INTERVAL HISTORY: The patient is doing fantastic from a mentation standpoint. He is a little somnolent, but he does follow all commands. He moves all 4 extremities. He opens and closes eyes to command. He remains on a sedation holiday. He did require 1 dose of Ativan at 9:00 last night. PHYSICAL EXAMINATION: VITAL SIGNS: Afebrile currently with a T-max yesterday of 102.8. Pulse 85, blood pressure 134/69, respirations 20, saturation 100% on 21% FiO2. HEENT: Normocephalic, atraumatic. Sclerae are white, conjunctivae pink. Oral mucosa is moist without lesions. LUNGS: Decent air entry with no prolonged expiratory phase, wheezing, rhonchi, or crackles present. HEART: Normal rate, regular. ABDOMEN: Soft, nontender, nondistended. Bowel sounds are positive. MUSCULOSKELETAL: No cyanosis or clubbing. There is no pitting in the bilateral lower extremities. NEUROLOGIC: Grossly nonfocal so far that I can tell at this time. LABORATORY DATA: WBC 8.1, hemoglobin 11.9, platelets 141,000. Band count is 15 %, but the neutrophil count is down trending. Chloride 112, potassium 3.5. Liver function studies are otherwise unremarkable. AST is down trending. Hepatitis C antibody is quantitatively positive. Blood cultures x2 and urine culture unremarkable. ASSESSMENT: 1. Status epilepticus, resolved. 2. Intracerebral hemorrhage. 3. Cocaine abuse. 4. Human immunodeficiency virus, DISCUSSION AND PLAN: We will put the patient on a spontaneous breathing trial at 5/5. After 30 minutes we will determine whether or not he meets criteria. If he does, extubation will be considered. Hopefully, his mentation will continue to clear through the day. Pulmonary will continue to follow while he remains in this location. He will need to stay here until he more convincingly wakes up. Additional dose of potassium will be provided. Critical care time: 30 minutes. MTDD
[2017-06-19] MEDS ORDERED: Potassium Chloride 40 MEQ in Sodium Chloride 0.9% 250 ML 250 ML IVPB SCH (13:00)
[2017-06-19 14:20] LABS: %CD4 (Helper/Inducer) 4.9 % (30.8-58.5); Absolute CD4 54 /uL (359-1519); Lymphocytes/Gated Cell Count 1.1 x10E3/uL (0.7-3.1); Total Lymphocyte 22 % (Not Estab.); WBC Total Count 4.8 x10E3/uL (3.4-10.8)
[2017-06-19] MEDS ORDERED: Dextrose 50% Abboject 50 ML SYRINGE ONE (16:32)
[2017-06-19] MEDS ORDERED: Dextrose 50% Abboject 50 ML SYRINGE SLOW IVP SCH (16:45)
[2017-06-19] MEDS: Dextrose 5 %-0.45 % NaCl 1,000 ML IV SCH (16:55)
[2017-06-19 17:04] LABS: Glucose 62 mg/dL (80-115)
[2017-06-20] MEDS: Dextrose 5 %-0.45 % NaCl 1,000 ML IV SCH ×2 (04:34→20:33)
[2017-06-20 05:37] LABS: Band 8 % (5-11); Hemoglobin 11.9 g/dL (14.0-18.0); Hypochromia SLIGHT = 6-15 cells (100X) (0-5/hpf); Lymphocytes 26 % (21-51); MDiff Complete? YES; Mean Corpuscular HGB CONC 32.3 g/dL (32.0-36.0); Mean Corpuscular Hemoglobin 29.8 pg (27.0-31.0); Mean Corpuscular Volume 92.1 fl (80.0-94.0); Mean Platelet Volume 7.5 fL (7.4-10.4); Metamyelocyte 4 % (0-0); Monocytes 20 % (0-10); Neutrophil 38 % (42-75); PLT Morphology Comment Appears Adequate; Platelet Count 130 thou/uL (130-400); Reactive Lymphocytes 4 % (0-10); White Blood Cell (WBC) Count 5.4 thou/uL (4.8-10.8)
[2017-06-20 05:38] LABS: ALT (SGPT) 19 U/L (8-55); AST (SGOT) 38 U/L (5-34); Alkaline Phosphatase 78 U/L (40-150); Anion Gap 9 mmol/L (10-20); BUN (Urea Nitrogen) 6 mg/dL (8.4-25.7); Bilirubin, Total 0.8 mg/dL (0.2-1.2); Calc. Creatinine Clearance 126 mL/min (70-130); Calcium 8.4 mg/dL (7.8-10.44); Carbon Dioxide 23 mmol/L (23-31); Chloride 109 mmol/L (98-107); Estimated GFR-MDRD Greater than 90; Glucose 88 mg/dL (80-115); Potassium 3.9 mmol/L (3.5-5.1); Sodium 137 mmol/L (136-145)
--- NOTE | 2017-06-20 06:53 | PDOC.FM ---
- Subjective Subjective: Pt slept majority of night. Sleepy this AM and not wanting to cooperate. Suggested Keppra may be causing sedation. Follows commands without issue. Speaking normally. VSS. Still NPO pending speech eval. - Objective MAR Reviewed: Yes Vital Signs & Weight: Vital Signs (12 hours) Temp Pulse Resp Pulse Ox 06/20/17 04:00 99.4 F 06/20/17 00:00 100 F H 06/19/17 20:00 99.4 F 92 16 96 Weight Admit Weight 72.2 kg Weight 73.7 kg Most Recent Monitor Data Heart Rate from ECG 83 NIBP 164/79 NIBP BP-Mean 92 Respiration from ECG 23 SpO2 98 I&O: 06/18/17 06/19/17 06/20/17 06:59 06:59 06:59 Intake Total 3878 2599 Output Total 500 2135 2280 Balance -500 3586 319 Result Diagrams: 06/20/17 04:58 06/20/17 04:58 <Jerzy Zimmer - Last Filed: 06/20/17 06:51> - Objective Vital Signs & Weight: Vital Signs (12 hours) Temp Pulse Resp BP BP Pulse Ox 06/21/17 09:00 140/72 06/21/17 08:00 97.4 F L 80 18 93 L 06/21/17 07:41 97.4 F L 80 18 140/72 93 L 06/21/17 03:51 99.7 F H 86 20 121/59 L 92 L 06/21/17 02:11 98 Weight Admit Weight 159 lb 2.78 oz Weight 157 lb 3 oz Most Recent Monitor Data Heart Rate from ECG 79 NIBP 153/84 NIBP BP-Mean 103 Respiration from ECG 26 SpO2 100 I&O: 06/20/17 06/21/17 06/22/17 06:59 06:59 06:59 Intake Total 2599 818 600 Output Total 2280 2970 500 Balance 319 -2152 100 Result Diagrams: 06/21/17 05:19 06/21/17 05:19 <Nabeel Martinez - Last Filed: 06/21/17 11:45> Phys Exam - Physical Examination Constitutional: NAD HEENT: PERRLA, moist MMs Neck: supple, full ROM Respiratory: no wheezing, no rhonchi, clear to auscultation bilateral coarse breath sounds anteriorly, CTAB posteriorly Cardiovascular: RRR, no significant murmur Gastrointestinal: soft, non-tender, no distention, positive bowel sounds Musculoskeletal: no edema, pulses present Neurological: non-focal, moves all 4 limbs 4/5 strength in all extremities likely 2/2 poor effort Deviation from normal: mildy agitated when awaken, non-anxious Skin: no rash, cap refill <2 seconds <Jerzy Zimmer - Last Filed: 06/20/17 06:51> Dx/Plan (1) Intracranial hemorrhage Code(s): I62.9 - NONTRAUMATIC INTRACRANIAL HEMORRHAGE, UNSPECIFIED Status: Acute Plan: Patient found down by son in what he describes as a tonic clonic seizure. EMS called and patient given Ativan 2mg for status epilepticus. He was intubated in the field and brought to [place] ED for further evaluation. CT brain revealed left frontal intraparenchymal hemorrhage. He tested positive for cocaine upon admission. Patient has a PMH of HIV but it is unknown what other conditions he may have and what medications he takes. History per son. MRA brain shows normal cerebral circulation MRA neck shows now evidence of carotid stenosis MRI brain shows a mild midline shift of falx but otherwise stable as compared to prior CT Since aneurysm and tumor have been ruled out, it is thought the etiology of bleed is hypertensive in nature, likely related to cocaine use. NSGY recommended repeat CT scan in 4 weeks and no ASA or anticoagulation. Pt extubated yesterday and responding to commands appropriately although sleepy this AM. Plan for PT/OT/speech eval this AM with likely transfer out of CCU. (2) Seizure Code(s): R56.9 - UNSPECIFIED CONVULSIONS Status: Acute Plan: 1st time seizure at home. Status epilepticus aborted with Ativan in the field. Neurology believes intraparenchymal hemorrhage provoked the seizure with recs to continue Keppra per Neuro. (3) HIV (human immunodeficiency virus infection) Status: Chronic Plan: Unknown history and medication list at time of admission. Meds are now reconciled per nursing. Will restart when tolerating PO. CD4 count 54 so may be noncompliant. Consider ID consult today. Speak more with pt on rounds if more awake. (4) Hypertensive emergency Code(s): I16.1 - HYPERTENSIVE EMERGENCY Status: Resolved Plan: Currently resolved. Labetalol prn. Likely 2/2 cocaine use. (5) Hypokalemia Code(s): E87.6 - HYPOKALEMIA Status: Resolved Plan: Resolved (6) History of RPR test Code(s): Z92.89 - PERSONAL HISTORY OF OTHER MEDICAL TREATMENT Status: Acute Plan: RPR 1:1 likely false positive although indeterminate treponemal test. Additional treponemal test sent out. Await results. Unclear if pt has been treated for syphilis in past. <Jerzy Zimmer - Last Filed: 06/20/17 06:51> Attending Addendum - Attending Addendum Date/Time: 06/21/17 1144 I personally evaluated the patient and discussed the management with Dr. Zimmer. I agree with the History, Examination, Assessment and Plan documented above with any addition or exceptions noted below. Continue to monitor neurological symptoms. <Nabeel Martinez - Last Filed: 06/21/17 11:45>
[2017-06-20] MEDS ORDERED: [UNRECOGNIZED DRUG - OTHER] PO SCH (08:00)
[2017-06-20] MEDS: Fluconazole 100 MG TAB PO SCH (09:01)
[2017-06-20] MEDS: Sulfameth/Trimethoprim DS 800-160mg TAB PO SCH (09:03)
[2017-06-20] MEDS ORDERED: Acetaminophen 325 MG TAB PO PRN (12:42)
[2017-06-20 14:12] LABS: LOG10 HIV-1 RNA 4.56 (.)
[2017-06-20 15:12] LABS: Hep C PCR-Quant 2630000 IU/mL (.)
[2017-06-20] MEDS: Melatonin 3 MG TAB PO PRN (20:23)
[2017-06-20] MEDS: levETIRAcetam 500 MG TAB PO SCH (20:23)
[2017-06-20] MEDS ORDERED: Lorazepam 2 MG/ML VIAL SLOW IVP PRN (22:00)
[2017-06-21 05:57] LABS: ALT (SGPT) 18 U/L (8-55); AST (SGOT) 38 U/L (5-34); Albumin 3.2 g/dL (3.4-4.8); Alkaline Phosphatase 85 U/L (40-150); Anion Gap 11 mmol/L (10-20); BUN (Urea Nitrogen) 6 mg/dL (8.4-25.7); Bilirubin, Total 0.8 mg/dL (0.2-1.2); Calc. Creatinine Clearance 117 mL/min (70-130); Calcium 8.6 mg/dL (7.8-10.44); Carbon Dioxide 25 mmol/L (23-31); Chloride 106 mmol/L (98-107); Estimated GFR-MDRD Greater than 90; Globulin 3.2 g/dL (2.4-3.5); Glucose 79 mg/dL (80-115); Potassium 3.3 mmol/L (3.5-5.1); Protein, Total 6.4 g/dL (5.8-8.1); Sodium 139 mmol/L (136-145)
[2017-06-21 06:27] LABS: Hemoglobin 11.9 g/dL (14.0-18.0); Lymphocytes 37 % (21-51); MDiff Complete? YES; Mean Corpuscular HGB CONC 32.6 g/dL (32.0-36.0); Mean Corpuscular Hemoglobin 29.8 pg (27.0-31.0); Mean Corpuscular Volume 91.4 fl (80.0-94.0); Mean Platelet Volume 7.1 fL (7.4-10.4); Metamyelocyte 1 % (0-0); Monocytes 8 % (0-10); Neutrophil 50 % (42-75); PLT Morphology Comment Appears Adequate; Platelet Count 149 thou/uL (130-400); RBC Distribution Width 11.7 % (11.5-14.5); RBC Morphology Normal; Reactive Lymphocytes 4 % (0-10); Red Blood Cell (RBC) Count 3.99 mill/uL (4.70-6.10); White Blood Cell (WBC) Count 2.9 thou/uL (4.8-10.8)
--- NOTE | 2017-06-21 07:17 | PDOC.FM ---
- Subjective Subjective: Pt woke to answer questions but mostly kept eyes closed and appeared agitated. He then stated he was getting out of here today. Denies complaints. On questioning, endorses dry cough. Denies fevers/chills even though had temp 102.6 overnight. Pulled IV out last night per nurse. Up to bedside commode with PT yesterday per nurse. - Objective MAR Reviewed: Yes Vital Signs & Weight: Vital Signs (12 hours) Temp Pulse Resp BP BP Pulse Ox 06/21/17 03:51 99.7 F H 86 20 121/59 L 92 L 06/21/17 02:11 98 06/20/17 23:17 99.6 F 91 20 164/76 H 94 L 06/20/17 20:25 102.0 F H 95 16 95 06/20/17 19:18 102.0 F H 95 16 170/91 H 95 Weight Admit Weight 72.2 kg Weight 71.299 kg Most Recent Monitor Data Heart Rate from ECG 79 NIBP 153/84 NIBP BP-Mean 103 Respiration from ECG 26 SpO2 100 I&O: 06/20/17 06/21/17 06/22/17 06:59 06:59 06:59 Intake Total 2599 818 Output Total 2280 2970 Balance 319 -2152 Result Diagrams: 06/21/17 05:19 06/21/17 05:19 Radiology Reviewed by me: Yes (repeating CXR due to fever) <Jerzy Zimmer - Last Filed: 06/21/17 07:15> - Objective Vital Signs & Weight: Vital Signs (12 hours) Temp Pulse Resp BP BP Pulse Ox 06/21/17 09:00 140/72 06/21/17 08:00 97.4 F L 80 18 93 L 06/21/17 07:41 97.4 F L 80 18 140/72 93 L 06/21/17 03:51 99.7 F H 86 20 121/59 L 92 L 06/21/17 02:11 98 Weight Admit Weight 159 lb 2.78 oz Weight 157 lb 3 oz Most Recent Monitor Data Heart Rate from ECG 79 NIBP 153/84 NIBP BP-Mean 103 Respiration from ECG 26 SpO2 100 I&O: 06/20/17 06/21/17 06/22/17 06:59 06:59 06:59 Intake Total 2599 818 600 Output Total 2280 2970 500 Balance 319 -2152 100 Result Diagrams: 06/21/17 05:19 06/21/17 05:19 <Nabeel Martinez - Last Filed: 06/21/17 11:32> Phys Exam - Physical Examination Constitutional: NAD sleepy and does not want to interact this AM HEENT: PERRLA, moist MMs aphthous ulceration on inside of bottom lip Neck: full ROM Respiratory: no wheezing, no rhonchi fine scattered rales posteriorly although poor inspir. effort on exam difficult to assess bases Cardiovascular: RRR, no significant murmur Gastrointestinal: soft, non-tender, positive bowel sounds Musculoskeletal: no edema, pulses present Neurological: normal sensation, moves all 4 limbs muscle strength 4/5 in all extremities Deviation from normal: A&Ox2 -A&Ox2 -does not know month, location, or president agitated <Jerzy Zimmer - Last Filed: 06/21/17 07:15> Dx/Plan (1) Intracranial hemorrhage Code(s): I62.9 - NONTRAUMATIC INTRACRANIAL HEMORRHAGE, UNSPECIFIED Status: Acute Plan: Patient found down by son in what he describes as a tonic clonic seizure. EMS called and patient given Ativan 2mg for status epilepticus. He was intubated in the field and brought to [place] ED for further evaluation. CT brain revealed left frontal intraparenchymal hemorrhage. He tested positive for cocaine upon admission. Patient has a PMH of HIV but it is unknown what other conditions he may have and what medications he takes. History per son. MRA brain shows normal cerebral circulation MRA neck shows now evidence of carotid stenosis MRI brain shows a mild midline shift of falx but otherwise stable as compared to prior CT Since aneurysm and tumor have been ruled out, it is thought the etiology of bleed is hypertensive in nature, likely related to cocaine use. NSGY recommended repeat CT scan in 4 weeks and no ASA or anticoagulation. Pt extubated 4/6 and responds to commands appropriately although still not very cooperative and seems agitated when bothered. Continue PT/OT treatment. PT recommended inpt rehab although unlikely pt wants to proceed with this. Does not appear has strength to d/c home currently. (2) Seizure Code(s): R56.9 - UNSPECIFIED CONVULSIONS Status: Acute Plan: 1st time seizure at home. Status epilepticus aborted with Ativan in the field. Neurology believes intraparenchymal hemorrhage provoked the seizure with recs to continue Keppra per Neuro (3) HIV (human immunodeficiency virus infection) Status: Chronic Plan: Records from [facility] reviewed showing chronic mgmt with [facility] although noncompliance noted with CD4 50 on 08/30. Restarted prophylaxis. Holding antivirals at this time as not on hospital formulary. CD4 count 54 now. May consult ID on Thursday. Due to fever 102.6 overnight and cough, getting CXR to reevaluate RLL which suggested infiltrate vs atelectasis on admission. (4) Hypertensive emergency Code(s): I16.1 - HYPERTENSIVE EMERGENCY Status: Resolved Plan: Currently resolved. Labetalol prn. Likely 2/2 cocaine use (5) Hypokalemia Code(s): E87.6 - HYPOKALEMIA Status: Resolved Plan: Oral replacement today. Unclear if pt ordered food yesterday; instructed nurses to assist. (6) History of RPR test Code(s): Z92.89 - PERSONAL HISTORY OF OTHER MEDICAL TREATMENT Status: Acute Plan: RPR 1:1 likely false positive although indeterminate treponemal test. Additional treponemal test sent out. Await results. Unclear if pt has been treated for syphilis in past (7) Hepatitis C, chronic Code(s): B18.2 - CHRONIC VIRAL HEPATITIS C Status: Acute QualifierTitle: Hepatic coma status: without hepatic coma Qualified Code( s): B18.2 - Chronic viral hepatitis C Plan: Active infection present 08/30 per [facility] records. Due to HIV noncompliance, felt not candidate for Hep C tx. Viral load still shows active infection now. (8) Cirrhosis of liver Code(s): K74.60 - UNSPECIFIED CIRRHOSIS OF LIVER Status: Acute Plan: Per [facility] records, found on imaging. No ascites noted on exam. (9) Noncompliance with medication treatment due to underuse of medication Code(s): Z91.14 - PATIENT'S OTHER NONCOMPLIANCE WITH MEDICATION REGIMEN Status : Acute Plan: Complicating overall picture. HIV not controlled. Hep C not treated. Pt taking meds being given in hospital but also not very cooperative with exam and giving history. Monitor. Pt endorsed wanting to leave today and pulled out IV last night. (10) Polysubstance abuse Code(s): F19.10 - OTHER PSYCHOACTIVE SUBSTANCE ABUSE, UNCOMPLICATED Status: Acute Plan: Hx cocaine, heroin, [facility] Does not express desire to change his behaviors. <Jerzy Zimmer - Last Filed: 06/21/17 07:15> Attending Addendum - Attending Addendum Date/Time: 06/21/17 1130 I personally evaluated the patient and discussed the management with resident. I agree with the History, Examination, Assessment and Plan documented above with any addition or exceptions noted below. Started on Bactim and fluconazole for prophylaxis. Continue current management, case monitor for placement for care home care planning. <Nabeel Martinez - Last Filed: 06/21/17 11:32>
[2017-06-21] MEDS: Dextrose 5 %-0.45 % NaCl 1,000 ML IV SCH ×2 (09:00→22:23)
[2017-06-21] MEDS: Potassium Chloride 20 MEQ TAB PO SCH (09:00)
[2017-06-21] MEDS: levETIRAcetam 500 MG TAB PO SCH ×2 (09:01→20:28)
[2017-06-21] MEDS: Fluconazole 100 MG TAB PO SCH (09:01)
[2017-06-21] MEDS: Sulfameth/Trimethoprim DS 800-160mg TAB PO SCH (09:01)
--- NOTE | 2017-06-21 11:15 | PRG ---
DATE OF SERVICE: 06/20/2017 SUBJECTIVE: Mr. Decker was extubated yesterday. This morning, he is awake, alert and responsive, in no distress was taking some ice chips. OBJECTIVE: VITAL SIGNS: Blood pressure 140/85, sats are 98, respiration rate 18. He is afebrile. NEUROLOGIC: He is awake, responsive. CHEST: Decreased breath sounds, minimal rhonchi. CARDIAC: Normal S1, S2. No gallops. ABDOMEN: Soft, no masses. LABORATORY DATA: White count 5000, H&H is stable , platelet count is 130. Electrolytes are normal. IMPRESSION: 1. Status post intracerebral hemorrhage, left frontal lobe, probably secondary to drug abuse. 2. Human immunodeficiency virus. 3. Seizure disorder. PLAN: He is on Keppra, Bactrim, and fluconazole as per his primary care physician. If he is stable enough, he can be transfer out of the ICU. Pulmonary will follow while in the ICU. ARIES
--- NOTE | 2017-06-21 12:35 | RAD ---
FRONTAL VIEW CHEST: Date: 06/21/17 COMPARISON: 06/18/17. INDICATION: Cough and fever. HIV. FINDINGS: There is added density of the left lung base with blunting of the left costophrenic sulcus. Mild prom inence of the pulmonary vasculature with interstitial opacification is seen. Cardiac silhouette is ac centuated by portable technique. IMPRESSION: 1. Mild left basilar opacity as above. 2. Mild vascular prominence and interstitial opacification may be on the basis of fluid status. Stepan elate clinically. POS: [facility]
--- NOTE | 2017-06-21 17:41 | PRG ---
DATE OF SERVICE: 06/21/2017 SUBJECTIVE: This morning, he is awake, alert, responsive. He was extubated post seizures. OBJECTIVE: VITAL SIGNS: Sats are 93% on room air, respiratory rate 18, blood pressure 147/82, pulse 80, tempera ture 97. GENERAL: He denies any pain or difficulty breathing. CHEST: No wheezing or crackles. CARDIAC: Normal S1 and S2. No gallops. EXTREMITIES: No edema. LABORATORY DATA: White count 2000, hemoglobin and hematocrit 11 and 36. Electrolytes are normal. IMPRESSION: Human immunodeficiency virus, seizure disorders, intracranial hemorrhage versus drug abu se. PLAN: Continue present medication. Pulmonary will follow at a distance.
[2017-06-21] MEDS: Melatonin 3 MG TAB PO PRN (18:28)
[2017-06-22 04:54] LABS: Eosinophils 1 % (0-10); Hemoglobin 12.1 g/dL (14.0-18.0); Lymphocytes 53 % (21-51); MDiff Complete? YES; Mean Corpuscular HGB CONC 33.2 g/dL (32.0-36.0); Mean Corpuscular Hemoglobin 29.6 pg (27.0-31.0); Mean Corpuscular Volume 89.1 fl (80.0-94.0); Mean Platelet Volume 6.8 fL (7.4-10.4); Monocytes 12 % (0-10); Neutrophil 34 % (42-75); PLT Morphology Comment Appears Adequate; Platelet Count 149 thou/uL (130-400); RBC Distribution Width 11.7 % (11.5-14.5); Red Blood Cell (RBC) Count 4.08 mill/uL (4.70-6.10); White Blood Cell (WBC) Count 2.6 thou/uL (4.8-10.8)
[2017-06-22 04:59] LABS: ALT (SGPT) 20 U/L (8-55); AST (SGOT) 39 U/L (5-34); Albumin 3.2 g/dL (3.4-4.8); Alkaline Phosphatase 84 U/L (40-150); Anion Gap 8 mmol/L (10-20); BUN (Urea Nitrogen) 6 mg/dL (8.4-25.7); Bilirubin, Total 0.6 mg/dL (0.2-1.2); Calc. Creatinine Clearance 114 mL/min (70-130); Calcium 8.8 mg/dL (7.8-10.44); Carbon Dioxide 27 mmol/L (23-31); Chloride 105 mmol/L (98-107); Estimated GFR-MDRD Greater than 90; Globulin 3.2 g/dL (2.4-3.5); Glucose 96 mg/dL (80-115); Potassium 3.7 mmol/L (3.5-5.1); Protein, Total 6.4 g/dL (5.8-8.1); Sodium 136 mmol/L (136-145)
[2017-06-22] MEDS: Potassium Chloride 20 MEQ TAB PO SCH (09:10)
[2017-06-22] MEDS: Fluconazole 100 MG TAB PO SCH (09:10)
[2017-06-22] MEDS: Sulfameth/Trimethoprim DS 800-160mg TAB PO SCH (09:10)
[2017-06-22] MEDS: levETIRAcetam 500 MG TAB PO SCH ×2 (09:10→20:00)
--- NOTE | 2017-06-22 09:40 | PDOC.FM ---
- Subjective Subjective: SAMANTHA overnight, VSS, pt afebrile. With mild cough this AM. Not wanting to answer questions this AM or go along w/ physical exam. Stated he walked w/ rolling walker w/ PT yesterday. - Objective MAR Reviewed: Yes Vital Signs & Weight: Vital Signs (12 hours) Temp Pulse Resp BP Pulse Ox 06/22/17 07:45 98.5 F 81 18 121/71 93 L 06/22/17 04:00 99.1 F 75 16 123/61 92 L 06/22/17 00:51 95 06/21/17 23:34 99.8 F H 77 16 147/72 H 95 Weight Admit Weight 72.2 kg Weight 74.162 kg Most Recent Monitor Data Heart Rate from ECG 79 NIBP 153/84 NIBP BP-Mean 103 Respiration from ECG 26 SpO2 100 I&O: 06/21/17 06/22/17 06/23/17 06:59 06:59 06:59 Intake Total 818 1435 Output Total 2970 500 Balance -2152 935 Result Diagrams: 06/22/17 04:34 06/22/17 04:34 <Aramis Moore K - Last Filed: 06/22/17 09:38> - Objective Vital Signs & Weight: Vital Signs (12 hours) Temp Pulse Pulse Pulse Resp BP BP 06/22/17 07:55 80 80 121/77 142/82 H 06/22/17 07:45 98.5 F 81 18 06/22/17 04:00 99.1 F 75 16 06/22/17 00:51 06/21/17 23:34 99.8 F H 77 16 BP Pulse Ox 06/22/17 07:55 06/22/17 07:45 121/71 93 L 06/22/17 04:00 123/61 92 L 06/22/17 00:51 95 06/21/17 23:34 147/72 H 95 Weight Admit Weight 72.2 kg Weight 74.162 kg Most Recent Monitor Data Heart Rate from ECG 79 NIBP 153/84 NIBP BP-Mean 103 Respiration from ECG 26 SpO2 100 I&O: 06/21/17 06/22/17 06/23/17 06:59 06:59 06:59 Intake Total 818 1435 480 Output Total 2970 500 Balance -2152 935 480 Result Diagrams: 06/22/17 04:34 06/22/17 04:34 <Gabby Andersen - Last Filed: 06/22/17 10:45> Phys Exam - Physical Examination Constitutional: NAD HEENT: PERRLA, moist MMs Respiratory: no wheezing, clear to auscultation bilateral Cardiovascular: RRR, no significant murmur Gastrointestinal: soft, non-tender, no distention Musculoskeletal: pulses present Neurological: non-focal, moves all 4 limbs pt not cooperative w/ exam <Aramis Moore - Last Filed: 06/22/17 09:38> Dx/Plan (1) Intracranial hemorrhage Code(s): I62.9 - NONTRAUMATIC INTRACRANIAL HEMORRHAGE, UNSPECIFIED Status: Acute Plan: Seen by Neurosurgery and neurology w/o plans for acute intervention at this time Pt w/o focal neurological deficits on exam BP well controlled w/ PO meds Likely 2/2 polysubstance abuse w/ cocaine Awaiting PT recs for SNF vs outpatient PT Pt refusing SNF placement this AM (2) Hypertensive emergency Code(s): I16.1 - HYPERTENSIVE EMERGENCY Status: Resolved Plan: BP stable on PO meds Likely 2/2 acute insult from cocaine use Will cont to monitor (3) Seizure Code(s): R56.9 - UNSPECIFIED CONVULSIONS Status: Acute Plan: [place] to be 2/2 intracranial bleed per neurology and neurosurgery Cont. w/ keppra per neurology Pt w/o seizure since admission (4) Hepatitis C, chronic Code(s): B18.2 - CHRONIC VIRAL HEPATITIS C Status: Acute QualifierTitle: Hepatic coma status: without hepatic coma Qualified Code( s): B18.2 - Chronic viral hepatitis C Plan: Active infection [facility] Not candidate for Rx 2/2 HIV non-compliance (5) Cirrhosis of liver Code(s): K74.60 - UNSPECIFIED CIRRHOSIS OF LIVER Status: Acute Plan: No ascites noted on exam Prior imaging per [place] records (6) Noncompliance with medication treatment due to underuse of medication Code(s): Z91.14 - PATIENT'S OTHER NONCOMPLIANCE WITH MEDICATION REGIMEN Status : Acute Plan: HIV not controlled w/ CD4 count 54 Hep C not treated 2/2 above Pt febrile over the weekend w/ possible L-lower lobe consolidation on repeat CXR Started on bactrim and fluconazole for ppx ID consulted this AM for further reccomendations Will defer starting additional abx to ID as bactrim already w/ some coverage for possible aspiration PNA and afebrile since initiation (7) Polysubstance abuse Code(s): F19.10 - OTHER PSYCHOACTIVE SUBSTANCE ABUSE, UNCOMPLICATED Status: Acute Plan: Pt does not express desire to change his behaviors Will cont. to monitor Pt would be good candidate for outpatient rehab if he is willing to quit (8) HIV (human immunodeficiency virus infection) Status: Chronic Plan: [facility], however non-compliant w/ this CD4 count 54 Started on ppx medications ID consulted for further reccomendations in the setting of fever this weekend CXR w/ possible lower lobe opacification Pending adding additional abx per ID recs (9) History of RPR test Code(s): Z92.89 - PERSONAL HISTORY OF OTHER MEDICAL TREATMENT Status: Acute Plan: Likely false positive w/ 1:1 RPR indeterminate FTA-ABS, repeat pending at this time Unable to determine if pt has hx of this and prior treatment upon review of [place] records <Aramis Moore - Last Filed: 06/22/17 09:38> Attending Addendum - Attending Addendum Date/Time: 06/22/17 1033 I personally evaluated the patient and discussed the management with Dr. Moore I agree with the History, Examination, Assessment and Plan documented above with any addition or exceptions noted below. 66 yo male with multiple medical conditions admitted for seizure. HD#4 Denies complaints or complications this morning. VS, labs, and imaging reviewed. Afebrile overnight and today. 1. Intracranial bleed with seizure activity: Neuro surg and neuro following. Stable. PT/OT following. Refusing rehab. Will set up for home health services. 2. HIV/AIDS: ID consulted. Has not been on therapy in some time due to different reasons. Needs ppx - Bactrium and likely Azithro. Will discuss with ID. CD4 = 54. Viral # [id number]. Unsure of other proventative testing. Will see if patient has recent annual TB testing. 3. Hep C: Unsure other hepatitis screening. Will review with ID records. 4. 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 5. Polysubstance use: Cocaine pos on admission. Concern for cause for bleed. 6. Aspiration?: Fever since admission. Cultures negative. Mild changes on CXR. Last fever 06/20/17. Possible atalectasis also vs disease state. Continue HIV opportunistic ppx and follow. Consult CM to help with d/c planning. Continue PT/OT. ID to help with ppx. Jo-Ann <Gabby Andersen - Last Filed: 06/22/17 10:45>
--- NOTE | 2017-06-22 11:43 | PRG ---
DATE OF SERVICE: 06/22/2017 SERVICE: Pulmonary Medicine. INTERVAL HISTORY: The patient is doing fine from a respiratory standpoint. He denies any shortness of breath or chest pain. He is on room air. He is mentating fine and moving all 4 extremities. Oth erwise, there has been no interval change to his condition. PHYSICAL EXAMINATION: VITAL SIGNS: Afebrile with a T-max of 100.1, pulse 81, blood pressure 121/71, respirations 18, satur ation 93% on room air. GENERAL: The patient is awake, alert, in no apparent distress. LUNGS: Decent air entry. There is no prolonged expiratory phase present. HEART: Normal rate and regular. ABDOMEN: Soft, nontender, nondistended. Bowel sounds are positive. MUSCULOSKELETAL: No cyanosis or clubbing. There is no pitting in the bilateral lower extremities. NEUROLOGIC: Grossly nonfocal. LABORATORY DATA: WBC 2.6, hemoglobin 12.1, platelets 149,000. Neutrophil count is only 34%, lymphoc ytes are 53%, monocytes 12%. Basic metabolic profile and liver function studies are essentially unre markable. Blood cultures x2 and urine culture remain unremarkable. ASSESSMENT: 1. Status epilepticus, resolved. 2. Intracerebral hemorrhage. 3. Hypertensive emergency secondary to cocaine abuse. 4. Human immunodeficiency virus, DISCUSSION AND PLAN: At this point, the patient has no further requirements for inpatient Pulmonary Critical Care opinion. As such, we will sign off. Please call with additional questions or concerns moving forward.
[2017-06-22 12:38] VITALS: BMI 22.1
--- NOTE | 2017-06-22 12:42 | CON ---
DATE OF CONSULTATION: 06/22/2017 REASON FOR CONSULTATION: HIV infection, intracerebral bleed. HISTORY OF PRESENT ILLNESS: A 66-year-old patient with a history of longstanding HIV infection, treated reportedly in [facility], who about two years ago moved to this region. According to his own account, he has not followed with any physician for his HIV infection since his transfer to this area and probably was not taking any of his medications. He could not remember the name of his medications. He was brought to the emergency room after seizure activity had to be intubated in the scene to protect his airway. On arrival, there had been no reported history of fever, chills or headaches. No sore throat, no respiratory symptoms or abdominal pain, no diarrhea, no genitourinary symptoms. His initial BP 200/120, heart rate 91, temperature 98.1 and O2 sat 97%. The examination was fairly unremarkable except for the ET tube. Initial labs with a white cell count of 2.5, hemoglobin 12.9, platelets 140 with a sodium of 139, potassium 2.9, glucose 162 and creatinine 0.79. Initial pH 7.31, pCO2 of 49, pO2 of 87 with a chloride of 107 and liver profile within normal limits. CK was 575, BNP 15. Cocaine metabolites were detected. Alcohol plasma less than 10. CT showed area of hemorrhage in the left frontal region, which was confirmed by MRI scan. Neurosurgery felt that continuation of conservative management was advisable. Vascular study did not show any AV malformations or aneurysms. Currently, Mr. Decker is awake. He is quite hostile during the interview and in his own words; he wanted to get out of the hospital as soon as possible. PAST MEDICAL HISTORY: HIV infection with poor medical followup for the past 2 years. PAST SURGICAL HISTORY: Negative. CURRENT MEDICATIONS: Diflucan, Normodyne, Keppra, Ativan, melatonin, Zofran, K- Dur and Bactrim. FAMILY HISTORY: Noncontributory. ALLERGIES: Negative. PHYSICAL EXAMINATION: VITAL SIGNS: T-max 102, currently 98.5. Blood pressure 140/82, pulse 81, respirations 18 and O2 sat 93%. SKIN: Small areas of ulceration in the intergluteal region, round shaped less than 1 cm, fresh red base. The patient has peripheral IV access and has a Delacruz catheter inserted. No lymphadenopathy or alopecia. HEENT: Ocular movements conjugate. Oral cavity with some erythema in the posterior oral cavity, but could not see any evidence of oral candidiasis. NECK: Supple. No jugular vein distention. LUNGS: With symmetric clear breath sounds. HEART: S1 and S2, regular rate. ABDOMEN: Soft and not distended. No ascites. No bladder distention. GENITOURINARY: No genital abnormalities. EXTREMITIES: No joint inflammatory activity. Pulses are 1+ in dorsalis pedis. He is able to move extremities equally. LABORATORY DATA: The white cell count is now 2.6, hemoglobin 12 and platelets 149. INR 1.1 and the last chemistry with a creatinine if 0.64, AST 39 and albumin 3.2. Urinalysis with 0-3 wbc's, 100 protein. CD4 cell count 54. The hepatitis C positive with a positive viral load of 2,630,000 copies per mL. HIV RNA PCR 36,000 and RPR titer was positive 1:1. ASSESSMENT: 1. Longstanding human immunodeficiency virus infection with erratic adherence to treatment, particularly over the past 2 years. 2. Advanced immunosuppression, CD4 in the low 50s. 3. History of prior syphilis with unknown treatment history. 4. Intracerebral hematoma, probably from small vessel disease. 5. Chronic hepatitis C, untreated. DISCUSSION: The patient's presentation included this area of hemorrhagic transformation in the left hemisphere and this could be related to a small cerebrovascular accident with hemorrhagic transformation, an opportunistic infection appears to be less likely, but not completely ruled out. We would check Cryptococcus antigen in serum as well as histoplasma antigen in the urine , CMV, DNA, PCR, and plasma. No evidence of pneumocystis at this point in time. Evidently, the patient's personal attitude towards this illness management is quite problematic and it will most likely hinder any attempt at a positive outcome. All the findings are reversible and could be markedly improved once he accepted proper management, but that does not seem to be the case at this point in time. He would need prophylaxis against pneumocystis with Bactrim 3 times a week as well as restarting his antiretroviral therapy or transition to a different one depending on susceptibility profile and so on. He would need treatment for syphilis, if he has never been treated before, and he also would need treatment for hepatitis C, but evidently right now, he barely let me evaluate him and he is ready to leave the hospital against medical advice if necessary. ARIES
[2017-06-23 06:25] LABS: ALT (SGPT) 19 U/L (8-55); AST (SGOT) 43 U/L (5-34); Albumin 3.3 g/dL (3.4-4.8); Alkaline Phosphatase 93 U/L (40-150); Anion Gap 8 mmol/L (10-20); BUN (Urea Nitrogen) 6 mg/dL (8.4-25.7); Bilirubin, Total 0.5 mg/dL (0.2-1.2); Calc. Creatinine Clearance 109 mL/min (70-130); Carbon Dioxide 28 mmol/L (23-31); Chloride 105 mmol/L (98-107); Estimated GFR-MDRD Greater than 90; Globulin 3.5 g/dL (2.4-3.5); Glucose 88 mg/dL (80-115); Potassium 3.9 mmol/L (3.5-5.1); Protein, Total 6.8 g/dL (5.8-8.1); Sodium 137 mmol/L (136-145)
[2017-06-23 06:27] LABS: Eosinophils 3 % (0-10); Hemoglobin 12.2 g/dL (14.0-18.0); Lymphocytes 48 % (21-51); MDiff Complete? YES; Mean Corpuscular HGB CONC 33.5 g/dL (32.0-36.0); Mean Corpuscular Hemoglobin 29.7 pg (27.0-31.0); Mean Corpuscular Volume 88.8 fl (80.0-94.0); Mean Platelet Volume 6.4 fL (7.4-10.4); Monocytes 8 % (0-10); Neutrophil 36 % (42-75); PLT Morphology Comment Appears Adequate; Platelet Count 169 thou/uL (130-400); RBC Distribution Width 11.7 % (11.5-14.5); RBC Morphology Normal; Reactive Lymphocytes 5 % (0-10); Red Blood Cell (RBC) Count 4.11 mill/uL (4.70-6.10); White Blood Cell (WBC) Count 2.9 thou/uL (4.8-10.8)
[2017-06-23] MEDS ORDERED: Bicillin LA 2.4 MILL.UNITS/4 ML SYRINGE IM SCH (06:30)
[2017-06-23] MEDS: Sulfameth/Trimethoprim DS 800-160mg TAB PO SCH (09:14)
[2017-06-23] MEDS: Potassium Chloride 20 MEQ TAB PO SCH (09:14)
[2017-06-23] MEDS: levETIRAcetam 500 MG TAB PO SCH (09:14)
[2017-06-23] MEDS: Fluconazole 100 MG TAB PO SCH (09:14)
--- NOTE | 2017-06-23 10:34 | PDOC.FM ---
- Subjective Subjective: SAMANTHA overnight, VSS, afebrile, no new complaints. Reportedly ambulating w/ rolling walker w/ PT. Pt does not want to go to SNF. Pt states he is leaving today one way or another. - Objective MAR Reviewed: Yes Vital Signs & Weight: Vital Signs (12 hours) Temp Pulse Resp BP BP Pulse Ox 06/23/17 09:00 133/79 06/23/17 08:00 97.8 F 79 18 133/79 91 L 06/23/17 03:49 98.4 F 74 17 134/69 96 Weight Admit Weight 72.2 kg Weight 73.028 kg Most Recent Monitor Data Heart Rate from ECG 79 NIBP 153/84 NIBP BP-Mean 103 Respiration from ECG 26 SpO2 100 I&O: 06/22/17 06/23/17 06/24/17 06:59 06:59 06:59 Intake Total 1435 720 240 Output Total 500 Balance 935 720 240 Result Diagrams: 06/23/17 05:54 06/23/17 05:54 <Aramis Moore - Last Filed: 06/23/17 10:32> - Objective Vital Signs & Weight: Vital Signs (12 hours) Temp Pulse Resp BP BP Pulse Ox 06/23/17 16:00 98.8 F 81 20 93 L 06/23/17 13:00 137/81 06/23/17 11:56 98.6 F 78 17 137/81 91 L Weight Admit Weight 72.2 kg Weight 73.028 kg Most Recent Monitor Data Heart Rate from ECG 79 NIBP 153/84 NIBP BP-Mean 103 Respiration from ECG 26 SpO2 100 I&O: 06/22/17 06/23/17 06/24/17 06:59 06:59 06:59 Intake Total 1435 720 240 Output Total 500 Balance 935 720 240 Result Diagrams: 06/23/17 05:54 06/23/17 05:54 <Noel Kitchen - Last Filed: 06/23/17 23:24> Phys Exam - Physical Examination Constitutional: NAD HEENT: PERRLA, moist MMs Neck: no nodes, no JVD Respiratory: no wheezing, no rales, clear to auscultation bilateral Cardiovascular: RRR, no significant murmur Gastrointestinal: soft, non-tender, no distention, positive bowel sounds Musculoskeletal: no edema, pulses present Neurological: non-focal, moves all 4 limbs 4+/5 diffusely <Aramis Moore K - Last Filed: 06/23/17 10:32> Dx/Plan (1) Intracranial hemorrhage Code(s): I62.9 - NONTRAUMATIC INTRACRANIAL HEMORRHAGE, UNSPECIFIED Status: Acute Plan: Seen by Neurosurgery and neurology w/o plans for acute intervention at this time Pt w/o focal neurological deficits on exam BP well controlled w/ PO meds Likely 2/2 polysubstance abuse w/ cocaine Awaiting PT recs for SNF vs outpatient PT Pt refusing SNF placement this AM again W/ set up for home health w/ PT (2) Hypertensive emergency Code(s): I16.1 - HYPERTENSIVE EMERGENCY Status: Resolved Plan: BP stable on PO meds Likely 2/2 acute insult from cocaine use Will cont to monitor (3) Seizure Code(s): R56.9 - UNSPECIFIED CONVULSIONS Status: Acute Plan: [place] to be 2/2 intracranial bleed per neurology and neurosurgery Cont. w/ keppra per neurology Pt w/o seizure since admission (4) Hepatitis C, chronic Code(s): B18.2 - CHRONIC VIRAL HEPATITIS C Status: Acute QualifierTitle: Hepatic coma status: without hepatic coma Qualified Code( s): B18.2 - Chronic viral hepatitis C Plan: Active infection [facility] Not candidate for Rx 2/2 HIV non-compliance (5) Cirrhosis of liver Code(s): K74.60 - UNSPECIFIED CIRRHOSIS OF LIVER Status: Acute Plan: No ascites noted on exam Prior imaging [facility] (6) Noncompliance with medication treatment due to underuse of medication Code(s): Z91.14 - PATIENT'S OTHER NONCOMPLIANCE WITH MEDICATION REGIMEN Status : Acute Plan: HIV not controlled w/ CD4 count 54 Hep C not treated 2/2 above Pt febrile over the weekend w/ possible L-lower lobe consolidation on repeat CXR Started on bactrim and fluconazole for ppx ID consulted further reccomendations. Will touch base w/ ID to see if remaining work-up can be performed as outpatient as pt threatining to leave AMA and is otherwise medically stable (7) Polysubstance abuse Code(s): F19.10 - OTHER PSYCHOACTIVE SUBSTANCE ABUSE, UNCOMPLICATED Status: Acute Plan: Pt does not express desire to change his behaviors Will cont. to monitor Pt would be good candidate for outpatient rehab if he is willing to quit (8) HIV (human immunodeficiency virus infection) Status: Chronic Plan: [facility], however non-compliant w/ this CD4 count 54 Started on ppx medications Various opportunistic infection labs placed by ID pending this AM (9) History of RPR test Code(s): Z92.89 - PERSONAL HISTORY OF OTHER MEDICAL TREATMENT Status: Acute Plan: Likely false positive w/ 1:1 RPR FTA-ABS positive this AM Will give 1st dose of PCN G IM Will need weekly doses x3 <Aramis Moore - Last Filed: 06/23/17 10:32> Attending Addendum - Attending Addendum Date/Time: 06/23/17 1231 I personally evaluated the patient and discussed the management with Dr. Moore. I agree with the History, Examination, Assessment and Plan documented above with any addition or exceptions noted below. He voices no complaints and wants to go home. I agree with Dr. 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 D/C home with home health after first dose of PCN given this morning. MD Lyn <Noel Kitchen - Last Filed: 06/23/17 23:24>
[2017-06-23 11:57] VITALS: BP 137/81
[2017-06-23 16:04] VITALS: TEMP 98.8
--- NOTE | 2017-06-24 02:42 | DIS-2 ---
DATE OF ADMISSION: 06/18/2017 DATE OF DISCHARGE: 06/23/2017 ADMITTING ATTENDING: Lexa Leon MD DISCHARGE ATTENDING: Noel Kitchen MD RESIDENT: Aramis Moore MD CONSULTATIONS: 1. Dr. Sadler, Cardiovascular Surgery. 2. Dr. Amos, Neurology. 3. Dr. Gibson, Pulmonology Critical Care. 4. Dr. Conklin, Infectious Disease. PROCEDURES: 1. Endotracheal intubation in the field per EMS. 2. Brain CT on 06/18/2017, showing moderate right intraparenchymal hematoma of the left inferior fro ntal lobe. A repeat CT scan the following day showing redemonstration of a cerebral hemorrhage of th e inferior left frontal lobe with no significant midline shift. MRI of the brain and MRA of the brai n showing no significant interval change from the recent CT with very mild mass effect with a slight midline shift anterior falx to the right and mild surrounding edema with no evidence of AVM or infarc t and unremarkable MRA of the cerebral circulation. MRA of the neck with no evidence of carotid sten osis. PRIMARY DIAGNOSES: 1. Intracerebral hemorrhage secondary to hypertensive emergency. 2. Status epilepticus secondary to intracerebral hemorrhage. 3. Polysubstance abuse. SECONDARY DIAGNOSES: 1. HIV. 2. Hepatitis C. 3. Syphilis. DISCHARGE MEDICATIONS: 1. Keppra 500 mg p.o. b.i.d. 2. Melatonin 9 mg p.o. at bedtime as needed for insomnia. 3. Lipitor 40 mg p.o. daily. 4. Fluconazole 200 mg p.o. daily. 5. Bactrim-DS 875 mg tablet p.o. daily. 6. Stribild 1 tab p.o. q.a.m. with breakfast. 7. Diclofenac 4 grams topical 4 times daily as needed for joint pain. DISCONTINUED MEDICATIONS: None. HISTORY OF PRESENT ILLNESS: The patient is a 66-year-old male with known past medical history of HIV , who was seen at the [facility], who presented initially after being found having a seizure at his residence . The patient was brought to the ER where he had to be intubated on route via EMS. The patient on r oute was given Ativan and once he came to the ER, was loaded with fosphenytoin and placed on propofol drip. CT brain obtained showing the findings as above and Cardiovascular Surgery and Neurology were consulted. Cardiovascular surgery with recommendations for blood pressure control and Neurology wit h recommendations to start patient on Keppra. Serial imaging of the intracerebral hemorrhage showing no significant increase and no midline shift which upon neurosurgical intervention. Patient was abl e to be successfully extubated on 06/19/2017 where he had adequate respiratory response, status post extubation. The patient was then transferred to the stroke unit after no longer needing Critical Car e in the ICU. Patient had CD4 count obtained which was found to be 54 and hepatitis C, RNA, PCR of 3 6,300. [facility] records were obtained and it seems that patient has been evaluated for this and not felt t o be a candidate for treatment for sepsis secondary to medication noncompliance with his HIV. Inge lea was also tested for syphilis during his hospitalization and found to have RPR titer of 1.1, syphili s IgG, IgM antibody was also obtained which was indeterminate. Confirmatory FTA-ABS was positive, so he was started on penicillin G 2.5 grams IM weekly for 3 weeks, which he is to continue as an outpat ient. Secondary to patient with some fevers over the weekend prior to discharge home, Dr. Conklin of nfectious Disease was consulted with further workup of his HIV. However, patient with multiple threa ts of leaving AMA and stating that he would be leaving a day of discharge whether he was discharged h ome or not after discussion with Infectious Disease was felt that this worker could be completed as a n outpatient. Patient was sent with home health and rolling walker obtained to aid him in assistance . It was felt the patient would highly benefit from being placed at a correction facility to re gain his strength as he had gross weakness and was requiring a rolling walker to ambulate, which he a pparently was not using before. However, patient refused this on multiple occasions and would only c onsider home health with physical therapy. This was successfully obtained and patient was discharged home with this to be set up through his [facility] physician who will follow him. DISPOSITION: Stable. DISCHARGE INSTRUCTIONS: 1. Location: Home. 2. Follow up with primary care provider in 7-10 days. 3. [facility]. 4. Follow up with [facility] Infectious Disease doctor in 7-10 days. 5. Activity. Cardiopulmonary limits.
== END 2017-06-23 17:37 | disposition home health service (06) | DRG 64 ==
LOC: ERS 03:54 → CCU 06:36 → 2SE 06-20 13:27
PROVIDERS: ADMIT Family Medicine; ATTEND Family Medicine
PROC: 5A1945Z Respiratory Ventilation, 24-96 Consecutive Hours (ICD-10-PCS; principal; 2017-06-18)
DX: I61.1 Nontraumatic intracerebral hemorrhage in hemisphere, cortical (principal); B20 Human immunodeficiency virus [HIV] disease; G93.6 Cerebral edema; E87.2 Acidosis; I16.1 Hypertensive emergency; K74.60 Unspecified cirrhosis of liver; F14.10 Cocaine abuse, uncomplicated; F19.10 Other psychoactive substance abuse, uncomplicated; B18.2 Chronic viral hepatitis C; Z91.14 Patient's other noncompliance with medication regimen; Z92.89 Personal history of other medical treatment; E87.6 Hypokalemia; G40.401 Other generalized epilepsy and epileptic syndromes, not intractable, with status epilepticus; I10 Essential (primary) hypertension
CPT/HCPCS: 36415; 36416; 51702; 70450; 70544; 70549; 70553; 71045; 72125; 80053; 80306; 80307; 81003; 81015; 82140; 82550; 82553; 82805; 83605; 83690; 83880; 84146; 84443; 84484; 85007; 85025; 85027; 85048; 85379; 85610; 85730; 86361; 86593; 86780; 86803; 87040; 87086; 87522; 87536; 93005; 94002; 94003; 96361; 96365; 96366; 96368; A9579; C9113; G8978-GP-CN; G8979-GP-CM; G8987-GO-CJ; G8988-GO-CI; G8996-GN-CJ; G8997-GN-CI; J0561; J1953; J2060; J2270; J2704; J3480; J7050; Q2009

== ENCOUNTER 2017-09-05 23:49 | Inpatient (IN) | payer MEDICARE ==
[2017-09-06] MEDS ORDERED: fentaNYL Citrate/PF 2,000 MCG in Sodium Chloride 0.9% 60 ML IV SCH ×2 (00:15→08:38)
[2017-09-06] MEDS ORDERED: Fosphenytoin Sodium 1,500 MG in Sodium Chloride 0.9% 100 ML IVPB SCH (00:30)
[2017-09-06 00:32] LABS: Actual Bicarbonate (HCO3a) 24.7 mEq/L (22-28); Base Excess (BEa) -1.6 mEq/L (-2.0 to +3.0); CO2 Tension 47.8 mmHg (35.0-45.0); Hematocrit-ABG 42.5 % (42.0-52.0); O2 Tension (PaO2) 192.5 mmHg (> 80.0); pH, Arterial 7.33 (7.35-7.45)
[2017-09-06 00:33] LABS: Analyzer IN Cardio ER; Calcium, Ionized 1.2 mmol/L (1.12-1.30); Hemoglobin (Hb) 12.9 g/dL (14.0-18.0); Puncture Site RRA
[2017-09-06 00:36] LABS: Bilirubin Small (Negative); Blood, Urine Small (Negative); Clarity CLEAR (Clear); Glucose, Urine (Dipstick) Negative (Negative); Leukocyte Negative (Negative); Nitrite Negative (Negative); Protein, Urine (Dipstick) 100 mg/dL (Neg-Trace); Specific Gravity, Urine 1.024 (1.002-1.036)
[2017-09-06 00:41] LABS: Bacteria/HPF None Seen HPF (None Seen); Hyaline Casts/LPF 0-3 HYALINE CAST LPF (0-3 Hyaline); Pathc Cast-AUWi Flag 0.14 (0-2.49); RBC/HPF 0-3 HPF (0-3); Squamous Epithelial 0-3 HPF (0-3); WBC/HPF 0-3 HPF (0-3)
[2017-09-06] MEDS ORDERED: Piperacillin/Tazobactam 4.5 GM VIAL ONE (00:45)
[2017-09-06] MEDS ORDERED: Sodium Chloride 0.9% 100 ML ONE (00:45)
[2017-09-06] MEDS ORDERED: Piperacillin/Tazobactam 4.5 GM in Sodium Chloride 0.9% 100 ML IVPB SCH (01:00)
[2017-09-06 01:05] LABS: #Monocytes 0.3 thou/uL (0.11-0.59); #Neutrophils 2.8 thou/uL (1.40-6.50); %Basophils 0.3 % (0.0-1.0); %Lymphocytes 23.6 % (21.0-51.0); %Monocytes 6.6 % (0.0-10.0); %Neutrophils 69.4 % (42.0-75.0); Hemoglobin 12.6 g/dL (14.0-18.0); Mean Corpuscular Volume 90.9 fL (78.0-98.0); Mean Platelet Volume 6.2 fL (7.4-10.4); Platelet Count 180 thou/uL (130-400); White Blood Cell (WBC) Count 4.1 thou/uL (4.8-10.8)
[2017-09-06 01:08] LABS: Amphetamine Not Detected (NotDetected); Barbiturates Screen Not Detected (NotDetected); Benzodiazepine Screen Not Detected (NotDetected); Cocaine Metabolite Screen Not Detected (NotDetected); Medtox Control Line Valid? VALID (VALID); Medtox Reader # READER 4; Methadone Not Detected (NotDetected); Methamphetamine Not Detected (NotDetected); Opiate Screen Not Detected (NotDetected); Oxycodone Screen Not Detected (NotDetected); Phencyclidine (PCP) Not Detected (NotDetected); THC/Cannabinoid Screen Not Detected (NotDetected); Tricyclic Screen Not Detected (NotDetected)
[2017-09-06 01:14] LABS: Renal Epithelial None Seen HPF (0-3); Transitional Epithelial NONE SEEN HPF (0-3)
[2017-09-06 01:15] LABS: INR-International Normal Ratio 1.1; PTT 33.2 SEC (22.9-36.1); Prothrombin Time 14.2 SEC (12.0-14.7)
[2017-09-06 01:18] LABS: Acetaminophen Less than 6.0 mcg/mL (10.0-30.0); Alcohol Less than 10 mg/dL (Less than 10); Salicylate Less than 8.0 mg/dL (15.0-30.0)
[2017-09-06 01:20] LABS: ALT (SGPT) 16 U/L (8-55); AST (SGOT) 41 U/L (5-34); Albumin 3.4 g/dL (3.4-4.8); Alkaline Phosphatase 107 U/L (40-150); Anion Gap 13 mmol/L (10-20); BUN (Urea Nitrogen) 12 mg/dL (8.4-25.7); CK (CPK) 504 U/L (30-200); Calc. Creatinine Clearance 0 mL/min (70-130); Calcium 8.4 mg/dL (7.8-10.44); Carbon Dioxide 23 mmol/L (23-31); Chloride 106 mmol/L (98-107); Estimated GFR-MDRD Greater than 90; Globulin 3.7 g/dL (2.4-3.5); Glucose 108 mg/dL (80-115); Lipase 10 U/L (8-78); Potassium 3.3 mmol/L (3.5-5.1); Protein, Total 7.1 g/dL (5.8-8.1); Sodium 139 mmol/L (136-145)
[2017-09-06 01:24] LABS: Troponin I 0.295 ng/mL (< 0.028)
[2017-09-06 01:30] LABS: CKMB 8.4 ng/mL (0-6.6)
[2017-09-06] MEDS ORDERED: Labetalol HCl 100 MG/20 ML VIAL SLOW IVP PRN (02:15)
[2017-09-06] MEDS ORDERED: hydrALAZINE 20 MG/ML VIAL SLOW IVP PRN (02:15)
[2017-09-06] MEDS ORDERED: niCARdipine 20MG in NaCl 200 ML BAG IVPB PRN (02:59)
[2017-09-06] MEDS ORDERED: Ondansetron HCl/PF 4 MG/2 ML Vial IVP PRN (02:59)
[2017-09-06] MEDS ORDERED: niCARdipine HCl 25 MG in Sodium Chloride 0.9% 250 ML 240 ML IVPB PRN (03:16)
[2017-09-06 04:38] LABS: #Basophils 0.1 thou/uL (0.0-0.2); #Lymphocytes 0.9 thou/uL (1.20-3.40); #Monocytes 0.2 thou/uL (0.11-0.59); %Basophils 1.4 % (0.0-1.0); %Eosinophils 0.1 % (0.0-10.0); %Lymphocytes 21.9 % (21.0-51.0); %Monocytes 4.4 % (0.0-10.0); %Neutrophils 72.1 % (42.0-75.0); Hemoglobin 12.1 g/dL (14.0-18.0); Mean Corpuscular Hemoglobin 30.1 pg (27.0-31.0); Mean Corpuscular Volume 91.4 fL (78.0-98.0); Mean Platelet Volume 6.7 fL (7.4-10.4); Platelet Count 176 thou/uL (130-400); RBC Distribution Width 13.9 % (11.5-14.5); Red Blood Cell (RBC) Count 4.02 mill/uL (4.70-6.10); White Blood Cell (WBC) Count 4.1 thou/uL (4.8-10.8)
[2017-09-06 05:02] LABS: Anion Gap 16 mmol/L (10-20); BUN (Urea Nitrogen) 11 mg/dL (8.4-25.7); Calc. Creatinine Clearance 109 mL/min (70-130); Calcium 8.1 mg/dL (7.8-10.44); Carbon Dioxide 19 mmol/L (23-31); Cardiac Risk 2.1 (Less than 4.5); Chloride 105 mmol/L (98-107); Cholesterol 84 mg/dl (< 200 Desired); Estimated GFR-MDRD Greater than 90; Glucose 181 mg/dL (80-115); HDL Cholesterol 40 mg/dL (>60 Neg Risk); LDL Cholesterol, Calculated 29 mg/dL; Potassium 3.7 mmol/L (3.5-5.1); Sodium 136 mmol/L (136-145); Triglycerides 73 mg/dL (Less than 150)
[2017-09-06 05:04] LABS: Troponin I 0.264 ng/mL (< 0.028)
[2017-09-06 07:57] LABS: Troponin I 0.203 ng/mL (< 0.028)
[2017-09-06] MEDS ORDERED: Lacri-Lube Opth Oint 3.5 GM TUBE EA EYE PRN (08:18)
[2017-09-06] MEDS ORDERED: Ventilator Sedation Protocol 1 EACH FS SCH (08:30)
[2017-09-06] MEDS ORDERED: Lorazepam 2 MG/ML VIAL SLOW IVP PRN (08:38)
[2017-09-06] MEDS ORDERED: DISCONTINUE PREVIOUS NARCOTIC PAIN MEDICATIONS AND BENZODIAZEPINES FS SCH (08:38)
[2017-09-06] MEDS ORDERED: Propofol BOLUS 1,000 MG/100 ML VIAL IV PRN (08:38)
[2017-09-06] MEDS: Famotidine/PF 20 mg/2ml Vial SLOW IVP SCH ×2 (08:50→20:44)
--- NOTE | 2017-09-06 09:34 | RAD ---
SINGLE VIEW OF THE CHEST: COMPARISON: 06/21/17. HISTORY: Intubated patient with respiratory failure and altered mental status. FINDINGS: A single view of the chest shows a normal-size cardiomediastinal silhouette. There is a developing a irspace opacity in the left lung consistent with pneumonia. A small left pleural effusion is also pr esent. An endotracheal tube is seen with its tip at the lower border of the clavicles. IMPRESSION: Left pulmonary infiltrate and pleural effusion. POS: [facility]
--- NOTE | 2017-09-06 09:55 | CT ---
CT OF THE BRAIN WITHOUT CONTRAST: COMPARISON: 09/06/17 at 12:54 a.m. HISTORY: Intracranial hemorrhage followup. TECHNIQUE: Multiple contiguous axial images were obtained in a CT of the brain without contrast. FINDINGS: There is a stable left frontal parenchymal hemorrhage. No interventricular hemorrhage is seen. Ther e are scattered hypodensities in the subcortical and periventricular white matter, likely secondary t o small-vessel ischemic disease. There is no evidence of hydrocephalus. The calvarium and overlying soft tissues are unremarkable. The visualized paranasal sinuses and mast oid air cells are well aerated. IMPRESSION: Stable left frontal parenchymal hemorrhage. POS: [facility]
--- NOTE | 2017-09-06 10:21 | PRG ---
DATE OF SERVICE: 09/06/2017 SUBJECTIVE: Mr. Decker this morning is a little bit more responsive. He withdraws to painful stimul i. He is blinking his eyes on his own and seems to respond to stimulus by opening his eyes. Pupils are reactive at this time. He does spontaneously move all 4 extremities as well, although nothing pu rposeful at the moment. We will repeat scan this morning and if stable, likely sign off. This is Lico Simpson PA-C dictating for Dr. Palumbo.
--- NOTE | 2017-09-06 10:23 | PDOC.EVN ---
Event Note - Event Note Event Note: 66 M with a PMH of CVA 9about 6 months ago) and who did not follow up with physicians seen and examined. He was admitted on account of seizures with prolonged post ictal stage, leading to acute hypoxic respiratory failure. he was intubated and sedated. CT brain showed Left Frontal Parenchymal hemorrhage. Started on IV Keppra. EEG ordered. Critical care services on board. Will continue to follow.
[2017-09-06] MEDS: Propofol 1,000 MG/100 ML VIAL IV PRN ×2 (10:45→20:44)
--- NOTE | 2017-09-06 12:43 | CON ---
DATE OF CONSULTATION: 09/06/2017 SERVICE: Pulmonary Medicine. REASON FOR CONSULTATION: Intubated patient. HISTORY OF PRESENT ILLNESS: The patient is a 66-year-old white male who is known to abuse cocaine. He has had an intraparenchymal hemorrhage, has been stable for quite some time. That being said, he fell out and had another seizure. He presented to the Emergency Department and required intubation because of for airway protection. He cannot provide any additional elements of the history. Otherwise, there were no significant overnight events. He is clenching his right hand very hard, will not let it go. He is really not withdrawing from noxious stimuli. With aggressive stimulation, he will spontaneously open his eyes, but he does not attend. PAST MEDICAL HISTORY: 1. HIV. 2. Intraparenchymal hemorrhage, chronic. 3. Polysubstance drug abuse. PAST SURGICAL HISTORY: Unknown. SOCIAL HISTORY: Positive for polysubstance drug abuse including cocaine. FAMILY HISTORY: Unknown. ALLERGIES: No known drug allergies. HOME MEDICATIONS: Include Keppra, Bactrim, melatonin, fluconazole, Stribild, diclofenac and Lipitor. INPATIENT MEDICATIONS: Reviewed. REVIEW OF SYSTEMS: This cannot be obtained because the patient is encephalopathic. PHYSICAL EXAMINATION: VITAL SIGNS: Afebrile. Pulse 95, blood pressure 132/70, respirations 18, saturation 96% on a 60% FiO2. HEENT: Normocephalic, atraumatic. Sclerae are white, conjunctivae pink. Oral mucosa is moist without lesions. LUNGS: Decent air entry. There is no prolonged expiratory phase or wheezing present. HEART: Normal rate, regular. ABDOMEN: Soft, nontender, nondistended. Bowel sounds are positive. MUSCULOSKELETAL: No cyanosis or clubbing. There is no pitting. There is minimal tenting. GENITOURINARY: Delacruz catheter in place. NEUROLOGIC: With noxious stimuli, he will open his eyes. He does not attend. His pupils are equal, round, and reactive. He comfortably over breathe in the ventilator. He withdraws from noxious stimuli in the bilateral lower and upper extremities. LABORATORY DATA: WBC 4.1, hemoglobin 12.1, platelets 176,000. INR 1.1. A pH 7.33, pCO2 of 47, pO2 of 192 on 100% FiO2 at that time. Basic metabolic profile and liver function studies are essentially unremarkable. Troponin is down trending to 0.203. Lactate is 1.4 and falls within the normal limits. CK is elevated. Liver function studies are otherwise essentially unremarkable. BNP 937. Urinalysis is positive for blood, ketones, bilirubin. IMAGING: CT of the brain demonstrates a left frontal intraparenchymal lesion that is roughly the same size, but probably slightly larger compared to the one from 2 months ago. Chest x-ray demonstrates an endotracheal tube that is roughly 4 cm above the level of the walter. The right costophrenic angle is sharp. The left lung field goes below our field of view. There is a large inflammatory changes throughout the left mid lung zone, likely associated with fairly significant aspiration event. ASSESSMENT: 1. Status epilepticus, hopefully, resolved. 2. Intracerebral hemorrhage, subacute with possible acute component. 3. Acute hypoxic respiratory failure. 4. Health care associated pneumonia. 5. History of cocaine abuse. 6. Human immunodeficiency virus. DISCUSSION AND PLAN: We are going down for another CT scan right now. If this thing is evolving, Neurosurgery will be notified. Otherwise, we will continue our frequent neuro checks. If he does not wake up when we stop the fentanyl, stat EEG will be performed. If he wakes up appropriately; however, extubation will be considered. We are going to initiate some antibiotics directed at pneumonia because the patient likely had a large aspiration related event. We will wean oxygen as tolerated, but right now he is requiring 43% oxygen to maintain saturations about 90%-92%. He will remain in the ICU for the next 24 hours regardless. Critical care time: 30 minutes. JEANNINED
[2017-09-06] MEDS: Piperacillin/Tazobactam 3.375 GM in Sodium Chloride 0.9% 100 ML IVPB SCH ×2 (13:29→18:25)
--- NOTE | 2017-09-06 14:00 | CT ---
PRELIMINARY REPORT/[facility]/EMERGENTY AFTER-HOURS PROCEDURE Addendum created by Sin Renteria MD on 09/06/2017 1:57 AM Central Time ([place] & [place]) Findings discu ssed with MULU ARRIAGA MD at time of interpretation. Initial Report created on 09/06/2017 1:55 AM Ce ntral Time ([place] & [place]) CT Head Without Intravenous Contrast CLINICAL HISTORY: 66 years old, male; Signs and symptoms; Altered mental status/memory loss; Patient HX: AMS. PT intuba cuco TECHNIQUE: Axial computed tomography images of the head/brain without intravenous contrast. COMPARISON: No relevant prior studies available. FINDINGS: Brain: 2.6 cm hemorrhagic contusion versus subdural hematoma the anteroinferior aspect of the left fr ontal lobe, evaluation limited by lack of reconstructions. Volume loss and chronic small vessel ische guillermo change. Ventricles: Normal. No ventriculomegaly. Bones/joints: Fracture deformities of the medial everett of the orbits, age indeterminate, probably chr onic. Sinuses: Fluid in the dependent sphenoid sinuses may be related to trauma or could signify sinusitis. Mastoid air cells: Normal as visualized. No mastoid effusion. Soft tissues: Normal. Nasopharynx: Fluid in the nasopharynx. IMPRESSION: 1. 2.6 cm hemorrhagic contusion versus subdural hematoma the anteroinferior aspect of the left frontal lobe, evaluation limited by lack of reconstructions. 2. Fluid in the dependent sphenoid sinuses may be related to trauma or could signify sinusitis. Thank you for allowing us to participate in the care of your patient. Dictated and Authenticated by: Sin Renteria MD 09/06/2017 1:55 AM Central Time ([place] & [place]) FINAL REPORT CT BRAIN WITHOUT CONTRAST: COMPARISON: 06/18/17. FINDINGS/IMPRESSION: I agree with the findings and impression given in the preliminary report per [facility] physician. There is a hemorrhagic contusion in the left frontal lobe. This is a slightly more anterior location than the prior contusion was seen in the left frontal lobe. Small-vessel ischemic disease is also present . POS: SJ
--- NOTE | 2017-09-06 18:06 | HP ---
TIME OF EVALUATION 1:25 a.m. PRIMARY CARE DOCTOR: [facility]. CODE STATUS: FULL CODE. CHIEF COMPLAINT: The patient found unresponsive. HISTORY OF PRESENT ILLNESS: This is a 66-year-old male patient with past medical history of previous admissions for same or similar symptoms, including previous stroke, syncope, patient came to the [facility] after being found in his house, it looks like the last time that the patient had been seen norm al was 24 hours before this happened, it looks like the patient had a seizure activity. When EMS arr ived, he was unresponsive, patient was intubated. As per family report, the patient has been seeing a doctor after he got a stroke 2 months ago, no further information is available from the patient. REVIEW OF SYSTEMS: I am unable to obtain since the patient is intubated and sedated. PAST MEDICAL HISTORY: Patient has a history of previous admission for stroke. PAST SURGICAL HISTORY: Unable to obtain. PSYCHIATRIC HISTORY: Unable to obtain. SOCIAL HISTORY: The patient drinks alcohol. No drug use was reported. No alcohol use was reported. Patient smoked 1 pack of cigarettes per day. KNOWN ALLERGIES: No known drug allergies. REPORTED MEDICATIONS: Unable to obtain. PHYSICAL EXAMINATION: VITAL SIGNS: On presentation, blood pressure 162/98, heart rate 110, respiratory rate 14, temperatur e 100.5 per rectal. GENERAL APPEARANCE: The patient is intubated, sedated. HEENT: Eyes: Normal conjunctivae. Moist oral mucosa. Anicteric. The patient has anisocoria. NECK: No JVD. RESPIRATORY: Bilateral air entry. No rales, no wheezing. Symmetric expansion. CARDIOVASCULAR: Normal rate, regular rhythm, no murmur, no gallop, no edema. ABDOMEN: Soft, normal bowel sounds. MUSCULOSKELETAL: I am unable to fully explore, no evidence of fractures. SKIN: Warm and intact. No perineal rash. No redness. NEUROLOGIC: The patient is intubated and sedated, unable to fully explore . PSYCHIATRIC: Unable to explore. LABORATORY DATA: Reviewed. The patient had white count 4.1, hemoglobin 12, platelet count 176. Coa gulation was normal. Blood gas pH 7.33, pCO2 of 47, pO2 192. Chemistry: Sodium 136, potassium 3.7, chloride 105, carbon dioxide 19, anion gap 16, BUN 11, creatinine 0.66, GFR greater than 90, glucose 181. Lactic acid 1.4, calcium 8.1. LFTs were normal. CK 504, troponin 0.264. Beta-natriuretic pe ptide 137. Urine was done and was negative. Toxicology was done and it was negative. IMAGING: CAT scan has been reviewed by myself. The patient has left frontal lobe haziness most like ly compatible with intraparenchymal versus subdural bleeding. Chest x-ray was reviewed by myself. T here is a left lower lobe pneumonia. EKG was reviewed and discussed with the performing physician fr [facility]. The patient has sinus tachycardia, possible left atrial enlargement. ASSESSMENT AND PLAN: The patient will be placed in ICU for the following medical problems. I have e xplained that more than 35 minutes at bedside, time of review and elaboration of records, loss of milieu coordinator rdination of care. 1. Acute intracranial bleeding, likely secondary to trauma. Neurosurgery has been consulted. Monit or in ICU, monitor blood pressure, hold it for systolic more than 160/100. 2. Acute respiratory failure, patient seems it was also unable to protect airways, ICU consult, we w ill follow recommendations. 3. Left lower lobe pneumonia, patient has been started on antibiotics, viral cultures, hydration, ad justing as per sensitivity. 4. Possible sepsis, patient had tachycardia, leukopenia, source is left lower lobe pneumonia. . 5. Elevated troponin of 0.26. This is likely secondary to non-ST elevation myocardial infarction ty pe 2, secondary to pneumonia. We will trend troponins, monitor as needed. 7. Possible underlying congestive heart failure exacerbation, given increased in pro-BNP. 8. Deep venous thrombosis prophylaxis.
--- NOTE | 2017-09-06 18:33 | CON ---
DATE OF CONSULTATION: 09/06/2017 HISTORY OF PRESENT ILLNESS: Mr. Decker is a 66-year-old man brought to the emergency department by [facility] after being found on the family at home. He is unresponsive on the scene with respiratory failure and was intubated in the field by EMS roughly an hour before this examination. He was given paralyt ics for rapid sequence intubation and then CT scan in the department reveals left-sided frontal intra parenchymal hemorrhage with no extension in subdural space or epidural space. This measures roughly 1 cm in diameter. There is no mass effect or midline shift. At bedside, the patient is intubated an d on a ventilator, breathing over the vent . His pupils are pinpoint measuring roughly 1 mm an d minimally reactive to light though they are equal. He is completely unresponsive to me at bedside. He has no response to pain. No response to other noxious stimuli. He does not have any corneal re flex at the moment. He displays no motor response in any significant manner nor so a lot of th is could be related to paralytics given for rapid sequence intubation . I would have heavy doub t this is related to the small size and lack of compression. At this time, Neurosurgery's rec ommendation is that of a nonsurgical approach with medical management only. Head of bed elevated to 30 degrees, blood pressure kept under 160 although at present his systolic pressures are in the 120s. Hold all blood thinning medications and then repeat a head CT scan later this morning. Neurosurger y will continue to follow. Lico Simpson PA-C dictating for Dr. Palumbo.
[2017-09-07] MEDS: Piperacillin/Tazobactam 3.375 GM in Sodium Chloride 0.9% 100 ML IVPB SCH ×4 (00:06→18:38)
[2017-09-07 07:02] LABS: #Lymphocytes 1.4 thou/uL (1.20-3.40); #Monocytes 0.2 thou/uL (0.11-0.59); #Neutrophils 3.8 thou/uL (1.40-6.50); %Basophils 0.1 % (0.0-1.0); %Eosinophils 0.1 % (0.0-10.0); %Lymphocytes 26.3 % (21.0-51.0); %Monocytes 3.4 % (0.0-10.0); %Neutrophils 70.1 % (42.0-75.0); Hemoglobin 11.2 g/dL (14.0-18.0); Mean Corpuscular HGB CONC 32.4 g/dL (32.0-36.0); Mean Corpuscular Hemoglobin 29.8 pg (27.0-31.0); Mean Platelet Volume 6.1 fL (7.4-10.4); Platelet Count 181 thou/uL (130-400); Red Blood Cell (RBC) Count 3.77 mill/uL (4.70-6.10); White Blood Cell (WBC) Count 5.4 thou/uL (4.8-10.8)
[2017-09-07 07:27] LABS: ALT (SGPT) 15 U/L (8-55); AST (SGOT) 31 U/L (5-34); Albumin 3.1 g/dL (3.4-4.8); Alkaline Phosphatase 78 U/L (40-150); Anion Gap 12 mmol/L (10-20); BUN (Urea Nitrogen) 15 mg/dL (8.4-25.7); Calc. Creatinine Clearance 103 mL/min (70-130); Carbon Dioxide 24 mmol/L (23-31); Chloride 106 mmol/L (98-107); Estimated GFR-MDRD Greater than 90; Globulin 3.4 g/dL (2.4-3.5); Glucose 63 mg/dL (80-115); Potassium 3.4 mmol/L (3.5-5.1); Protein, Total 6.5 g/dL (5.8-8.1); Sodium 139 mmol/L (136-145)
--- NOTE | 2017-09-07 07:53 | PRG ---
DATE OF SERVICE: 09/07/2017 SERVICE: Pulmonary Medicine INTERVAL HISTORY: The patient is doing great from a respiratory standpoint. His mentation has actua lly improved dramatically. He does not have any fevers, chills, nausea, vomiting or chest discomfort . He is on mechanical ventilation. He is following all commands. He demonstrates excellent strengt h. PHYSICAL EXAMINATION: VITAL SIGNS: Afebrile, pulse 91, blood pressure 128/70, respirations 21, saturation 95% on 37% FiO2 and a PEEP of 5. HEENT: Normocephalic, atraumatic. Sclerae are white, conjunctivae pink. Oral and nasal mucosa is m oist without lesions. LUNGS: Excellent air entry. Rhonchi are scattered throughout bilateral lung pedraza, but much more s evere on the left. There is no prolonged expiratory phase. No wheezing or crackles are identified. HEART: Normal rate, regular. ABDOMEN: Soft, nontender, nondistended. Bowel sounds are positive. MUSCULOSKELETAL: No cyanosis or clubbing. There is no pitting in the bilateral lower extremities. NEUROLOGIC: Grossly nonfocal. LABORATORY DATA: WBC 5.4, hemoglobin 11.2, platelets 181,000. INR 1.1. Potassium 3.4. Basic metab olic profile and liver function studies are otherwise unremarkable. Troponin is down trending to 0.2 . Urinalysis is unremarkable. Urine drug screen is negative. ASSESSMENT: 1. Status epilepticus, resolved. 2. Intracerebral hemorrhage, likely subacute with possible acute component to it. 3. History of cocaine abuse. 4. Human immunodeficiency virus, DISCUSSION AND PLAN: The patient is doing absolutely wonderful from a respiratory standpoint. We wi ll put him on spontaneous breathing trial. If he meets criteria, extubation will be considered. Pot assium is going to be replaced today. If he does well through the afternoon and is breathing comfort ably, he can be considered for transition to the stroke unit. CRITICAL CARE TIME: 30 minutes.
[2017-09-07] MEDS: Potassium Chloride 20 MEQ TAB PO SCH ×2 (08:00→13:35)
--- NOTE | 2017-09-07 10:33 | PDOC.PN ---
- Subjective Encounter Start Date: 09/07/17 Encounter Start Time: 10:33 66 M with a PMH of CVA 9about 6 months ago) and who did not follow up with physicians seen and examined. He was admitted on account of seizures with prolonged post ictal stage, leading to acute hypoxic respiratory failure. he was intubated and sedated. CT brain showed Left Frontal Parenchymal hemorrhage. Started on IV Keppra. Critical care services on board- extubated this a.m. and doing well on NC O2. Likely transfer to stroke unit today. - Objective MAR Reviewed: Yes Vital Signs & Weight: Vital Signs (12 hours) Temp Pulse Resp Pulse Ox 09/07/17 08:11 96 09/07/17 06:00 13 09/07/17 04:00 98.3 F 15 09/07/17 02:58 85 09/07/17 02:00 15 09/07/17 00:00 97.9 F 15 Weight Weight 152 lb 8.958 oz Most Recent Monitor Data Heart Rate from ECG 81 NIBP 141/68 NIBP BP-Mean 91 Respiration from ECG 15 SpO2 94 I&O: 09/06/17 09/07/17 09/08/17 06:59 06:59 06:59 Intake Total 73.8 1073.4 Output Total 845 572 58 Balance -771.2 501.4 -58 Result Diagrams: 09/07/17 06:57 09/07/17 06:57 Phys Exam - Physical Examination Constitutional: NAD HEENT: moist MMs, sclera anicteric Neck: supple, full ROM Respiratory: no wheezing, no rales, no rhonchi, clear to auscultation bilateral Cardiovascular: RRR, no significant murmur, no rub Gastrointestinal: soft, non-tender, no distention, positive bowel sounds Musculoskeletal: no edema Neurological: non-focal, moves all 4 limbs Psychiatric: normal affect, A&O x 3 Skin: no rash, normal turgor Dx/Plan (1) Status epilepticus Code(s): G40.901 - EPILEPSY, UNSP, NOT INTRACTABLE, WITH STATUS EPILEPTICUS Status: Acute Comment: Continue on IV Keppra. Will transition to PO. (2) Left lower lobe pneumonia Code(s): J18.1 - LOBAR PNEUMONIA, UNSPECIFIED ORGANISM Status: Acute Qualifiers: Pneumonia type: due to unspecified organism Qualified Code(s): J18.1 - Lobar pneumonia, unspecified organism (3) Intracranial hemorrhage Code(s): I62.9 - NONTRAUMATIC INTRACRANIAL HEMORRHAGE, UNSPECIFIED Status: Acute (4) Polysubstance abuse Code(s): F19.10 - OTHER PSYCHOACTIVE SUBSTANCE ABUSE, UNCOMPLICATED Status: Acute (5) Seizure Code(s): R56.9 - UNSPECIFIED CONVULSIONS Status: Acute (6) HIV (human immunodeficiency virus infection) Status: Chronic (7) Hypokalemia Code(s): E87.6 - HYPOKALEMIA Status: Acute (8) Acute hypoxemic respiratory failure Code(s): J96.01 - ACUTE RESPIRATORY FAILURE WITH HYPOXIA Status: Resolved - Plan cont current plan of care, PT/OT, aids social worker, speech therapy, respiratory therapy, DVT proph w/SCDs Continue IV keppra. Transition to PO. Continue IV antibiotics. f/u Cultures Resume home medications once confirmed. Review of Systems - Medications/Allergies Allergies/Adverse Reactions: Allergies Allergy/AdvReac Type Severity Reaction Status Date / Time No Known Allergies Allergy Verified 09/06/17 04:32 Medications: Current Medications Albuterol/Ipratropium (Duoneb) 3 ml NEB [id number] PRN PRN Reason: SOB &/or Wheezing Hydralazine HCl (Apresoline) 5 mg SLOW IVP Q15MIN PRN PRN Reason: SBP > 160, HR < 70 Levetiracetam 500 mg/ Device 100 mls @ 200 mls/hr IVPB BID [facility] Last Admin: 09/07/17 09:57 Dose: 100 mls Nicardipine HCl 25 mg/ Sodium (Chloride) 250 mls @ 0 mls/hr IVPB INF PRN; Protocol; Titrate PRN Reason: For SBP > 150 or DBP > 90 Piperacillin Sod/Tazobactam (Sod 3.375 gm/ Sodium Chloride) 100 mls @ 200 mls/ hr IVPB Q6HR [facility] Last Admin: 09/07/17 05:50 Dose: 100 mls Labetalol HCl (Normodyne) 10 mg SLOW IVP Q4H PRN PRN Reason: SBP > 160, HR > 70 Ondansetron HCl (Zofran) 4 mg IVP BIDPRN PRN PRN Reason: Nausea/Vomiting Potassium Chloride (K-Dur) 40 meq PO Q4H [facility] Stop: 09/07/17 12:01 Sodium Chloride (Flush - Normal Saline) 10 ml IVF PRN PRN PRN Reason: Saline Flush
[2017-09-07 11:16] LABS: Glucose Accucheck Confirmation 59 mg/dl (80-115)
[2017-09-07] MEDS ORDERED: Dextrose 50% Abboject 50 ML SYRINGE ONE (11:27)
--- NOTE | 2017-09-07 13:05 | EEG ---
Referring Physician: Carmen TURNER EEG # [id number] TEST TYPE: ROUTINE PORTABLE INPATIENT REPORT: AN EEG USING THE INTERNATIONAL TEN-TWENTY SYSTEM OF ELECTRODE PLACEMENT WAS PERFORMED. The background activity shows some diffuse slowing and suppression with the dominant background frequency being 5-6 hertz theta. Some intermixed low amplitude delta was seen over both hemispheres. Photic stimulation was unremarkable. No sleep patterns were seen. No epileptiform features were present. 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
[2017-09-07] MEDS ORDERED: Potassium Chloride 40 MEQ in Sodium Chloride 0.9% 250 ML 250 ML IVPB SCH (13:15)
[2017-09-07] MEDS: Dextrose 5 %-0.45 % NaCl 1,000 ML IV SCH ×2 (13:33→22:10)
[2017-09-08] MEDS: Piperacillin/Tazobactam 3.375 GM in Sodium Chloride 0.9% 100 ML IVPB SCH ×3 (00:30→11:45)
[2017-09-08 07:45] LABS: #Lymphocytes 1.1 thou/uL (1.20-3.40); #Monocytes 0.2 thou/uL (0.11-0.59); %Basophils 0.3 % (0.0-1.0); %Eosinophils 0.4 % (0.0-10.0); %Monocytes 4.3 % (0.0-10.0); Hemoglobin 10.9 g/dL (14.0-18.0); Mean Corpuscular HGB CONC 31.2 g/dL (32.0-36.0); Mean Corpuscular Hemoglobin 28.6 pg (27.0-31.0); Mean Corpuscular Volume 91.6 fL (78.0-98.0); Mean Platelet Volume 6.3 fL (7.4-10.4); Platelet Count 194 thou/uL (130-400); RBC Distribution Width 13.6 % (11.5-14.5); Red Blood Cell (RBC) Count 3.82 mill/uL (4.70-6.10); White Blood Cell (WBC) Count 4.4 thou/uL (4.8-10.8)
[2017-09-08 08:05] LABS: Anion Gap 10 mmol/L (10-20); BUN (Urea Nitrogen) 7 mg/dL (8.4-25.7); Calc. Creatinine Clearance 118 mL/min (70-130); Calcium 8.7 mg/dL (7.8-10.44); Carbon Dioxide 27 mmol/L (23-31); Chloride 107 mmol/L (98-107); Estimated GFR-MDRD Greater than 90; Glucose 92 mg/dL (80-115); Potassium 3.4 mmol/L (3.5-5.1); Sodium 141 mmol/L (136-145)
--- NOTE | 2017-09-08 08:52 | PDOC.PN ---
- Subjective Encounter Start Date: 09/08/17 Encounter Start Time: 16:23 66 M with a PMH of CVA (about 6 months ago) and who did not follow up with physicians seen and examined. He was admitted on account of seizures with prolonged post ictal stage, leading to acute hypoxic respiratory failure. he was intubated and sedated. CT brain showed Left Frontal Parenchymal hemorrhage. Started on IV Keppra. Critical care services on board- extubated and doing well. - Objective MAR Reviewed: Yes Vital Signs & Weight: Vital Signs (12 hours) Temp 09/08/17 08:00 99.1 F 09/08/17 07:00 99.1 F 09/08/17 04:00 98.4 F 09/08/17 00:00 98.6 F Weight Admit Weight 152 lb Weight 154 lb 8.705 oz Most Recent Monitor Data Heart Rate from ECG 94 NIBP 155/84 NIBP BP-Mean 121 Respiration from ECG 17 SpO2 94 I&O: 09/07/17 09/08/17 09/09/17 06:59 06:59 06:59 Intake Total 1073.4 3008 200 Output Total 572 1763 Balance 501.4 1245 200 Result Diagrams: 09/08/17 07:42 09/08/17 07:42 Additional Labs: Accuchecks 09/07/17 09/07/17 09/07/17 21:17 16:17 12:24 POC Glucose 119 H 106 107 09/07/17 09/07/17 10:34 10:27 POC Glucose 63 L 59 L* Phys Exam - Physical Examination Constitutional: NAD HEENT: moist MMs, sclera anicteric Neck: supple, full ROM Respiratory: no wheezing, no rales, no rhonchi, clear to auscultation bilateral Cardiovascular: RRR, no significant murmur, no rub Gastrointestinal: soft, non-tender, no distention, positive bowel sounds Musculoskeletal: no edema, pulses present R hemiparesis Upper and lower ectremities Psychiatric: normal affect, A&O x 3 Skin: no rash, normal turgor Dx/Plan (1) Seizure Code(s): R56.9 - UNSPECIFIED CONVULSIONS Status: Acute Comment: Continue Keppra. Will transition to PO. (2) Left lower lobe pneumonia Code(s): J18.1 - LOBAR PNEUMONIA, UNSPECIFIED ORGANISM Status: Acute Qualifiers: Pneumonia type: due to unspecified organism Qualified Code(s): J18.1 - Lobar pneumonia, unspecified organism Comment: De-escalated to Augmentin. Cultures negative. Will need repeat CXR in 4 -6 weeks. (3) Intracranial hemorrhage Code(s): I62.9 - NONTRAUMATIC INTRACRANIAL HEMORRHAGE, UNSPECIFIED Status: Acute Comment: Repeat CT showed stable hematoma. (4) Polysubstance abuse Code(s): F19.10 - OTHER PSYCHOACTIVE SUBSTANCE ABUSE, UNCOMPLICATED Status: Chronic (5) HIV (human immunodeficiency virus infection) Status: Chronic Comment: Continue home medications. (6) Hypokalemia Code(s): E87.6 - HYPOKALEMIA Status: Acute (7) Acute hypoxemic respiratory failure Code(s): J96.01 - ACUTE RESPIRATORY FAILURE WITH HYPOXIA Status: Resolved (8) Status epilepticus Code(s): G40.901 - EPILEPSY, UNSP, NOT INTRACTABLE, WITH STATUS EPILEPTICUS Status: Resolved - Plan cont current plan of care, hernandez catheter, continue antibiotics, PT/OT, director social, speech therapy, out of bed/ambulate, DVT proph w/SCDs * . Review of Systems - Medications/Allergies Allergies/Adverse Reactions: Allergies Allergy/AdvReac Type Severity Reaction Status Date / Time No Known Allergies Allergy Verified 09/06/17 04:32 Medications: Current Medications Albuterol/Ipratropium (Duoneb) 3 ml NEB [id number] PRN PRN Reason: SOB &/or Wheezing Hydralazine HCl (Apresoline) 5 mg SLOW IVP Q15MIN PRN PRN Reason: SBP > 160, HR < 70 Levetiracetam 500 mg/ Device 100 mls @ 200 mls/hr IVPB BID [facility] Last Admin: 09/07/17 22:09 Dose: 100 mls Nicardipine HCl 25 mg/ Sodium (Chloride) 250 mls @ 0 mls/hr IVPB INF PRN; Protocol; Titrate PRN Reason: For SBP > 150 or DBP > 90 Piperacillin Sod/Tazobactam (Sod 3.375 gm/ Sodium Chloride) 100 mls @ 200 mls/ hr IVPB Q6HR [facility] Last Admin: 09/08/17 05:29 Dose: 100 mls Labetalol HCl (Normodyne) 10 mg SLOW IVP Q4H PRN PRN Reason: SBP > 160, HR > 70 Ondansetron HCl (Zofran) 4 mg IVP BIDPRN PRN PRN Reason: Nausea/Vomiting Sodium Chloride (Flush - Normal Saline) 10 ml IVF PRN PRN PRN Reason: Saline Flush
--- NOTE | 2017-09-08 12:50 | PRG ---
DATE OF SERVICE: 09/08/2017 SERVICE: Pulmonary Medicine INTERVAL HISTORY: The patient is doing great from a respiratory standpoint. He was extubated just f ine yesterday. Currently he is on room air. He has no complaints of shortness of breath, chest pain , fevers, or chills. He has yet to be out of bed. PHYSICAL EXAMINATION: VITAL SIGNS: Afebrile, pulse 88, blood pressure was 162/79, respirations 17, saturation 98% on room air. GENERAL: The patient is awake, alert, in no apparent distress. LUNGS: Decent air entry. There are crackles present at the left lung field. There are no crackles on the right. No prolonged expiratory phase or wheezing is appreciated. HEART: Normal rate, regular. ABDOMEN: Soft, nontender, nondistended. Bowel sounds are positive. MUSCULOSKELETAL: No cyanosis or clubbing. No pitting in the bilateral lower extremities. NEUROLOGIC: Grossly nonfocal. LABORATORY DATA: WBC 4.4, hemoglobin 10.9, platelets 194,000. Potassium 3.4. Basic metabolic profi le is otherwise unremarkable. Blood cultures x2 are negative. ASSESSMENT: 1. Status epilepticus, resolved. 2. Intracerebral hemorrhage, subacute, with possible acute component to it. 3. History of cocaine abuse. 4. Human immunodeficiency virus, DISCUSSION AND PLAN: The patient is doing fine from a respiratory standpoint. I will deescalate his antibiotics over to Augmentin. He will need to complete a 7-day course. He also requires a repeat chest x-ray in 4-6 weeks in the outpatient setting to verify the infiltrate goes away. Potassium candie l be replaced today. From my perspective, he is stable for transition to the floor. When he arrives there, I will sign off.
--- NOTE | 2017-09-08 15:20 | PQF ---
CLINICAL DOCUMENTATION IMPROVEMENT CLARIFICATION FORM: ICD-10 Updated PLEASE DO AN ADDENDUM TO THE PROGRESS NOTE WITH ANY DOCUMENTATION UPDATES OR ADDITIONS AND CARRY THROUGH TO DC SUMMARY. THANK YOU. DATE: 09/08/17 ATTN: DR. ZARAGOZA Please exercise your independent, professional judgment in responding to the clarification form. Clinical indicators are provided on the bottom of this form for your review Please check appropriate box(s) to clarify if the following diagnosis has been ruled in or ruled out: SEPSIS [ ] Ruled in diagnosis [ ] Continue to treat [ ] Resolved [x ] Ruled out diagnosis [ ] Cannot rule out diagnosis [ ] Other diagnosis [ ] Unable to determine In addition, please specify: Present on Admission (POA): [ ] Yes [ ] No [ ] Unable to determine For continuity of documentation, please document condition throughout progress notes and discharge summary. Thank You. 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 All Rights Reserved REE [email or web address] Office: [phone] ARIES
[2017-09-08] MEDS: Potassium Chloride 20 MEQ TAB PO SCH (17:39)
[2017-09-08] MEDS: Amoxicillin/Potassium Clav 875 MG TAB PO SCH (20:46)
[2017-09-09 06:00] LABS: #Lymphocytes 1.2 thou/uL (1.20-3.40); #Monocytes 0.3 thou/uL (0.11-0.59); #Neutrophils 1.4 thou/uL (1.40-6.50); %Basophils 0.4 % (0.0-1.0); %Eosinophils 1.2 % (0.0-10.0); %Monocytes 8.6 % (0.0-10.0); %Neutrophils 47.8 % (42.0-75.0); Hemoglobin 11.3 g/dL (14.0-18.0); Mean Corpuscular Hemoglobin 28.5 pg (27.0-31.0); Mean Platelet Volume 6.4 fL (7.4-10.4); Platelet Count 202 thou/uL (130-400); RBC Distribution Width 13.7 % (11.5-14.5); Red Blood Cell (RBC) Count 3.96 mill/uL (4.70-6.10); White Blood Cell (WBC) Count 2.9 thou/uL (4.8-10.8)
[2017-09-09 06:02] LABS: Anion Gap 11 mmol/L (10-20); BUN (Urea Nitrogen) 8 mg/dL (8.4-25.7); Calc. Creatinine Clearance 131 mL/min (70-130); Calcium 8.9 mg/dL (7.8-10.44); Carbon Dioxide 27 mmol/L (23-31); Chloride 106 mmol/L (98-107); Estimated GFR-MDRD Greater than 90; Glucose 89 mg/dL (80-115); Potassium 3.6 mmol/L (3.5-5.1); Sodium 140 mmol/L (136-145)
[2017-09-09] MEDS ORDERED: Melatonin 3 MG TAB PO PRN (07:05)
[2017-09-09] MEDS ORDERED: Non-Formulary Item 1 EACH (Elviteg/Cob/Emtri/Tenofo Disop [Stribild] 1 TAB) PO SCH (08:00)
[2017-09-09] MEDS ORDERED: STRIBILD PO SCH (08:00)
[2017-09-09] MEDS: Potassium Chloride 20 MEQ TAB PO SCH ×2 (08:43→17:37)
[2017-09-09] MEDS: Sulfameth/Trimethoprim DS 800-160mg TAB PO SCH (08:44)
[2017-09-09] MEDS: Atorvastatin Calcium 40 MG TAB PO SCH (08:44)
[2017-09-09] MEDS: Fluconazole 100 MG TAB PO SCH (08:44)
[2017-09-09] MEDS: levETIRAcetam 500 MG TAB PO SCH ×2 (08:44→20:31)
[2017-09-09] MEDS: Amoxicillin/Potassium Clav 875 MG TAB PO SCH ×2 (08:44→20:31)
[2017-09-09] MEDS ORDERED: Sulfameth/Trimethoprim DS 800-160mg TAB PO SCH (09:00)
[2017-09-09] MEDS ORDERED: Non-Formulary Item 1 EACH (Fluconazole [Fluconazole] 200 MG) PO SCH (09:00)
--- NOTE | 2017-09-09 09:31 | PDOC.PN ---
- Subjective Encounter Start Date: 09/09/17 Encounter Start Time: 09:28 66 M with a PMH of CVA (about 6 months ago) and who did not follow up with physicians seen and examined. He was admitted on account of seizures with prolonged post ictal stage, leading to acute hypoxic respiratory failure, leading to him being intubated and sedated. CT brain showed Left Frontal Parenchymal hemorrhage. Started on IV Keppra and transitioned to PO. Patient has remained stable and so transferred to stroke unit. He has no complaints today. no acute events overnight. - Objective MAR Reviewed: Yes Vital Signs & Weight: Vital Signs (12 hours) Temp Pulse Resp BP BP Pulse Ox 09/09/17 07:48 98.8 F 94 16 158/87 H 90 L 09/09/17 05:53 139/78 09/09/17 04:00 99.0 F 83 18 176/93 H 93 L 09/09/17 00:00 99.2 F 85 18 152/103 H 94 L 09/08/17 22:45 99.2 F 85 18 94 L 09/08/17 21:35 179/101 H Weight Admit Weight 152 lb Weight 152 lb 4.8 oz Most Recent Monitor Data Heart Rate from ECG 94 NIBP 166/75 NIBP BP-Mean 93 Respiration from ECG 17 SpO2 94 I&O: 09/08/17 09/09/17 09/10/17 06:59 06:59 06:59 Intake Total 3008 1470 Output Total 1763 200 Balance 1245 1270 Result Diagrams: 09/09/17 05:23 09/09/17 05:23 Phys Exam - Physical Examination Constitutional: NAD HEENT: moist MMs, sclera anicteric Neck: supple, full ROM Respiratory: no wheezing, no rales, no rhonchi, clear to auscultation bilateral Cardiovascular: RRR, no significant murmur, no rub Gastrointestinal: soft, non-tender, no distention, positive bowel sounds Musculoskeletal: no edema, pulses present Psychiatric: A&O x 3 Skin: no rash, normal turgor Dx/Plan (1) Seizure Code(s): R56.9 - UNSPECIFIED CONVULSIONS Status: Acute Comment: Continue Keppra. Will transition to PO. (2) Left lower lobe pneumonia Code(s): J18.1 - LOBAR PNEUMONIA, UNSPECIFIED ORGANISM Status: Acute Qualifiers: Pneumonia type: due to unspecified organism Qualified Code(s): J18.1 - Lobar pneumonia, unspecified organism Comment: De-escalated to Augmentin. Cultures negative. Will need repeat CXR in 4 -6 weeks. (3) Intracranial hemorrhage Code(s): I62.9 - NONTRAUMATIC INTRACRANIAL HEMORRHAGE, UNSPECIFIED Status: Acute Comment: Repeat CT showed stable hematoma. (4) Polysubstance abuse Code(s): F19.10 - OTHER PSYCHOACTIVE SUBSTANCE ABUSE, UNCOMPLICATED Status: Chronic Comment: Encouraged on quitting. (5) HIV (human immunodeficiency virus infection) Status: Chronic Comment: Continue home medications. (6) HTN (hypertension) Code(s): I10 - ESSENTIAL (PRIMARY) HYPERTENSION Status: Chronic Qualifiers: Hypertension type: essential hypertension Qualified Code(s): I10 - Essential (primary) hypertension Comment: Blood pressure noted to be chronically elevated from previous admissions. Will start on amlodipine and monitor. (7) Hypokalemia Code(s): E87.6 - HYPOKALEMIA Status: Resolved (8) Acute hypoxemic respiratory failure Code(s): J96.01 - ACUTE RESPIRATORY FAILURE WITH HYPOXIA Status: Resolved (9) Status epilepticus Code(s): G40.901 - EPILEPSY, UNSP, NOT INTRACTABLE, WITH STATUS EPILEPTICUS Status: Resolved - Plan cont current plan of care, continue antibiotics, PT/OT, vp digital marketing social media and crm, speech therapy, out of bed/ambulate, DVT proph w/SCDs Group Home Manager consult in place for discharge planning. Patient doing well- continue current management. Review of Systems - Medications/Allergies Allergies/Adverse Reactions: Allergies Allergy/AdvReac Type Severity Reaction Status Date / Time No Known Allergies Allergy Verified 09/06/17 04:32 Medications: Current Medications Albuterol/Ipratropium (Duoneb) 3 ml NEB [id number] PRN PRN Reason: SOB &/or Wheezing Amoxicillin/Clavulanate Potassium (Augmentin) 875 mg PO Q12HR [facility] Stop: 09/13/17 21:01 Last Admin: 09/09/17 08:44 Dose: 875 mg Atorvastatin Calcium (Lipitor) 40 mg PO DAILY [facility] Last Admin: 09/09/17 08:44 Dose: 40 mg Fluconazole (Diflucan) 200 mg PO DAILY [facility] Last Admin: 09/09/17 08:44 Dose: 200 mg Hydralazine HCl (Apresoline) 5 mg SLOW IVP Q15MIN PRN PRN Reason: SBP > 160, HR < 70 Nicardipine HCl 25 mg/ Sodium (Chloride) 250 mls @ 0 mls/hr IVPB INF PRN; Protocol; Titrate PRN Reason: For SBP > 150 or DBP > 90 Labetalol HCl (Normodyne) 10 mg SLOW IVP Q4H PRN PRN Reason: SBP > 160, HR > 70 Levetiracetam (Keppra) 500 mg PO BID [facility] Last Admin: 09/09/17 08:44 Dose: 500 mg Melatonin (Melatonin) 9 mg PO HSPRN PRN PRN Reason: Insomnia Ondansetron HCl (Zofran) 4 mg IVP BIDPRN PRN PRN Reason: Nausea/Vomiting [Stribild] 1 Tab 0 each PO QAM-[facility] Potassium Chloride (K-Dur) 40 meq PO BID-[facility] Stop: 09/10/17 08:01 Last Admin: 09/09/17 08:43 Dose: 40 meq Sodium Chloride (Flush - Normal Saline) 10 ml IVF PRN PRN PRN Reason: Saline Flush Trimethoprim/Sulfamethoxazole (Bactrim Ds) 1 tab PO DAILY [facility] Last Admin: 09/09/17 08:44 Dose: 1 tab
[2017-09-09 11:33] VITALS: BMI 20.5
[2017-09-10 05:30] LABS: #Eosinphils 0.1 thou/uL (0.0-0.7); #Lymphocytes 1.2 thou/uL (1.20-3.40); #Monocytes 0.4 thou/uL (0.11-0.59); #Neutrophils 1.2 thou/uL (1.40-6.50); %Basophils 0.2 % (0.0-1.0); %Lymphocytes 42.9 % (21.0-51.0); %Monocytes 13.2 % (0.0-10.0); %Neutrophils 41.7 % (42.0-75.0); Hemoglobin 11.6 g/dL (14.0-18.0); Mean Corpuscular HGB CONC 32.8 g/dL (32.0-36.0); Mean Corpuscular Hemoglobin 29.7 pg (27.0-31.0); Mean Corpuscular Volume 90.5 fL (78.0-98.0); Mean Platelet Volume 6.1 fL (7.4-10.4); Platelet Count 207 thou/uL (130-400); RBC Distribution Width 13.7 % (11.5-14.5); Red Blood Cell (RBC) Count 3.92 mill/uL (4.70-6.10); White Blood Cell (WBC) Count 2.8 thou/uL (4.8-10.8)
[2017-09-10 05:42] LABS: Anion Gap 11 mmol/L (10-20); BUN (Urea Nitrogen) 9 mg/dL (8.4-25.7); Calc. Creatinine Clearance 114 mL/min (70-130); Carbon Dioxide 25 mmol/L (23-31); Chloride 106 mmol/L (98-107); Estimated GFR-MDRD Greater than 90; Glucose 87 mg/dL (80-115); Potassium 4.3 mmol/L (3.5-5.1); Sodium 138 mmol/L (136-145)
[2017-09-10] MEDS: Atorvastatin Calcium 40 MG TAB PO SCH (08:01)
[2017-09-10] MEDS: levETIRAcetam 500 MG TAB PO SCH ×2 (08:01→20:00)
[2017-09-10] MEDS: Sulfameth/Trimethoprim DS 800-160mg TAB PO SCH (08:01)
[2017-09-10] MEDS: Amoxicillin/Potassium Clav 875 MG TAB PO SCH ×2 (08:01→20:00)
[2017-09-10] MEDS: Fluconazole 100 MG TAB PO SCH (08:02)
[2017-09-10] MEDS: Potassium Chloride 20 MEQ TAB PO SCH (08:02)
[2017-09-10] MEDS ORDERED: Amlodipine 5 MG TAB PO SCH ×2 (09:00→11:04)
--- NOTE | 2017-09-10 11:01 | PDOC.PN ---
- Subjective Encounter Start Date: 09/10/17 Encounter Start Time: 10:59 66 M with a PMH of CVA (about 6 months ago) and who did not follow up with physicians seen and examined. He was admitted on account of seizures with prolonged post ictal stage, leading to acute hypoxic respiratory failure, leading to him being intubated and sedated. CT brain showed Left Frontal Parenchymal hemorrhage. Started on IV Keppra and transitioned to PO. He has no complaints today. No acute events overnight. - Objective Vital Signs & Weight: Vital Signs (12 hours) Temp Pulse Resp BP BP BP Pulse Ox 09/10/17 08:01 89 161/93 H 09/10/17 08:00 98.7 F 89 18 09/10/17 07:52 98.7 F 89 18 161/93 H 91 L 09/10/17 04:10 99 F 92 20 138/79 93 L 09/09/17 23:35 99.2 F 84 20 153/105 H 92 L Weight Admit Weight 152 lb Weight 153 lb 9.6 oz Most Recent Monitor Data Heart Rate from ECG 94 NIBP 166/75 NIBP BP-Mean 93 Respiration from ECG 17 SpO2 94 I&O: 09/09/17 09/10/17 09/11/17 06:59 06:59 06:59 Intake Total 1470 640 470 Output Total 200 3 Balance 1270 637 470 Result Diagrams: 09/10/17 04:56 09/10/17 04:56 Phys Exam - Physical Examination Constitutional: NAD HEENT: moist MMs, sclera anicteric Neck: supple, full ROM Respiratory: no wheezing, no rales, no rhonchi, clear to auscultation bilateral Cardiovascular: RRR, no significant murmur, no rub Gastrointestinal: soft, non-tender, no distention, positive bowel sounds Musculoskeletal: no edema, pulses present Skin: no rash, normal turgor Dx/Plan (1) Left lower lobe pneumonia Code(s): J18.1 - LOBAR PNEUMONIA, UNSPECIFIED ORGANISM Status: Acute Qualifiers: Pneumonia type: due to unspecified organism Qualified Code(s): J18.1 - Lobar pneumonia, unspecified organism Comment: Stable. Continue Augmentin. Cultures negative. Will need repeat CXR in 4-6 weeks. (2) Seizure Code(s): R56.9 - UNSPECIFIED CONVULSIONS Status: Chronic Comment: Stabe. Seizure free. Continue Keppra. (3) Intracranial hemorrhage Code(s): I62.9 - NONTRAUMATIC INTRACRANIAL HEMORRHAGE, UNSPECIFIED Status: Acute Comment: Repeat CT showed stable hematoma. (4) Polysubstance abuse Code(s): F19.10 - OTHER PSYCHOACTIVE SUBSTANCE ABUSE, UNCOMPLICATED Status: Chronic Comment: Encouraged on quitting. (5) HIV (human immunodeficiency virus infection) Status: Chronic (6) HTN (hypertension) Code(s): I10 - ESSENTIAL (PRIMARY) HYPERTENSION Status: Chronic Qualifiers: Hypertension type: essential hypertension Qualified Code(s): I10 - Essential (primary) hypertension Comment: Fair control. Continue amlodipine. (7) Acute hypoxemic respiratory failure Code(s): J96.01 - ACUTE RESPIRATORY FAILURE WITH HYPOXIA Status: Resolved (8) Status epilepticus Code(s): G40.901 - EPILEPSY, UNSP, NOT INTRACTABLE, WITH STATUS EPILEPTICUS Status: Resolved - Plan cont current plan of care, PT/OT, renal social worker, speech therapy, out of bed/ ambulate, DVT proph w/SCDs * . Review of Systems - Medications/Allergies Allergies/Adverse Reactions: Allergies Allergy/AdvReac Type Severity Reaction Status Date / Time No Known Allergies Allergy Verified 09/06/17 04:32 Medications: Current Medications Albuterol/Ipratropium (Duoneb) 3 ml NEB [id number] PRN PRN Reason: SOB &/or Wheezing Amlodipine Besylate (Norvasc) 5 mg PO DAILY [facility] Last Admin: 09/10/17 08:01 Dose: 5 mg Amoxicillin/Clavulanate Potassium (Augmentin) 875 mg PO Q12HR [facility] Stop: 09/13/17 21:01 Last Admin: 09/10/17 08:01 Dose: 875 mg Atorvastatin Calcium (Lipitor) 40 mg PO DAILY [facility] Last Admin: 09/10/17 08:01 Dose: 40 mg Fluconazole (Diflucan) 200 mg PO DAILY [facility] Last Admin: 09/10/17 08:02 Dose: 200 mg Hydralazine HCl (Apresoline) 5 mg SLOW IVP Q15MIN PRN PRN Reason: SBP > 160, HR < 70 Labetalol HCl (Normodyne) 10 mg SLOW IVP Q4H PRN PRN Reason: SBP > 160, HR > 70 Levetiracetam (Keppra) 500 mg PO BID [facility] Last Admin: 09/10/17 08:01 Dose: 500 mg Melatonin (Melatonin) 9 mg PO HSPRN PRN PRN Reason: Insomnia Ondansetron HCl (Zofran) 4 mg IVP BIDPRN PRN PRN Reason: Nausea/Vomiting [Stribild] 1 Tab 0 each PO QAM-[facility] Sodium Chloride (Flush - Normal Saline) 10 ml IVF PRN PRN PRN Reason: Saline Flush Last Admin: 09/10/17 08:04 Dose: 10 ml Trimethoprim/Sulfamethoxazole (Bactrim Ds) 1 tab PO DAILY [facility] Last Admin: 09/10/17 08:01 Dose: 1 tab
[2017-09-10] MEDS ORDERED: Amlodipine 10 MG TAB PO SCH (11:15)
[2017-09-11 05:39] LABS: Anion Gap 12 mmol/L (10-20); BUN (Urea Nitrogen) 10 mg/dL (8.4-25.7); Calc. Creatinine Clearance 114 mL/min (70-130); Calcium 9.3 mg/dL (7.8-10.44); Carbon Dioxide 24 mmol/L (23-31); Chloride 104 mmol/L (98-107); Estimated GFR-MDRD Greater than 90; Glucose 75 mg/dL (80-115); Potassium 4.3 mmol/L (3.5-5.1); Sodium 136 mmol/L (136-145)
[2017-09-11 06:10] LABS: Band 1 % (5-11); Eosinophils 4 % (0-10); Hemoglobin 12.1 g/dL (14.0-18.0); Lymphocytes 57 % (21-51); MDiff Complete? YES; Mean Corpuscular HGB CONC 31.9 g/dL (32.0-36.0); Mean Corpuscular Hemoglobin 28.9 pg (27.0-31.0); Mean Corpuscular Volume 90.5 fL (78.0-98.0); Metamyelocyte 1 % (0-0); Monocytes 7 % (0-10); Neutrophil 30 % (42-75); PLT Morphology Comment Appears Adequate; Platelet Count 222 thou/uL (130-400); RBC Distribution Width 13.7 % (11.5-14.5); Red Blood Cell (RBC) Count 4.19 mill/uL (4.70-6.10); White Blood Cell (WBC) Count 2.8 thou/uL (4.8-10.8)
[2017-09-11] MEDS: Amoxicillin/Potassium Clav 875 MG TAB PO SCH ×2 (08:49→19:59)
[2017-09-11] MEDS: Fluconazole 100 MG TAB PO SCH (08:49)
[2017-09-11] MEDS: levETIRAcetam 500 MG TAB PO SCH ×2 (08:49→19:59)
[2017-09-11] MEDS: Atorvastatin Calcium 40 MG TAB PO SCH (08:49)
[2017-09-11] MEDS: Amlodipine 10 MG TAB PO SCH (08:50)
[2017-09-11] MEDS: Sulfameth/Trimethoprim DS 800-160mg TAB PO SCH (08:50)
--- NOTE | 2017-09-11 11:30 | PDOC.PN ---
- Subjective Encounter Start Date: 09/11/17 Encounter Start Time: 11:28 66 M with a PMH of CVA (about 6 months ago) and who did not follow up with physicians seen and examined. He was admitted on account of seizures with prolonged post ictal stage, leading to acute hypoxic respiratory failure, leading to him being intubated and sedated. CT brain showed Left Frontal Parenchymal hemorrhage. Started on IV Keppra and transitioned to PO. 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 He is awaiting placement at a rehabilitation facility. He has no complaints today. No acute events overnight. - Objective MAR Reviewed: Yes Vital Signs & Weight: Vital Signs (12 hours) Temp Pulse Resp BP BP Pulse Ox 09/11/17 08:50 88 129/82 09/11/17 08:00 98.2 F 88 16 09/11/17 07:12 98.2 F 88 16 129/82 91 L 09/11/17 03:42 98.7 F 86 20 112/71 90 L 09/10/17 23:45 98.7 F 89 20 115/81 93 L Weight Admit Weight 152 lb Weight 154 lb Most Recent Monitor Data Heart Rate from ECG 94 NIBP 166/75 NIBP BP-Mean 93 Respiration from ECG 17 SpO2 94 I&O: 09/10/17 09/11/17 09/12/17 06:59 06:59 06:59 Intake Total 640 1100 Output Total 3 400 200 Balance 637 700 -200 Result Diagrams: 09/11/17 04:53 09/11/17 04:53 Phys Exam - Physical Examination Constitutional: NAD HEENT: moist MMs, sclera anicteric Neck: supple, full ROM Respiratory: no wheezing, no rales, no rhonchi, clear to auscultation bilateral Cardiovascular: RRR, no significant murmur, no rub Gastrointestinal: soft, non-tender, no distention, positive bowel sounds Musculoskeletal: no edema, pulses present Psychiatric: normal affect, A&O x 3 Skin: no rash, normal turgor Dx/Plan (1) Left lower lobe pneumonia Code(s): J18.1 - LOBAR PNEUMONIA, UNSPECIFIED ORGANISM Status: Acute Qualifiers: Pneumonia type: due to unspecified organism Qualified Code(s): J18.1 - Lobar pneumonia, unspecified organism Comment: Stable. Continue Augmentin. Cultures negative. Will need repeat CXR in 4-6 weeks. (2) Seizure Code(s): R56.9 - UNSPECIFIED CONVULSIONS Status: Chronic Comment: Stabe. Seizure free. Continue Keppra. (3) Intracranial hemorrhage Code(s): I62.9 - NONTRAUMATIC INTRACRANIAL HEMORRHAGE, UNSPECIFIED Status: Acute Comment: Repeat CT showed stable hematoma. (4) Polysubstance abuse Code(s): F19.10 - OTHER PSYCHOACTIVE SUBSTANCE ABUSE, UNCOMPLICATED Status: Chronic Comment: Encouraged on quitting. (5) HIV (human immunodeficiency virus infection) Status: Chronic (6) HTN (hypertension) Code(s): I10 - ESSENTIAL (PRIMARY) HYPERTENSION Status: Chronic Qualifiers: Hypertension type: essential hypertension Qualified Code(s): I10 - Essential (primary) hypertension Comment: Fair control. Continue amlodipine. - Plan cont current plan of care, continue antibiotics, PT/OT, social media analyst, out of bed/ambulate, DVT proph w/SCDs Awaiting placement- on board. Medically ready for discharge. Review of Systems - Medications/Allergies Allergies/Adverse Reactions: Allergies Allergy/AdvReac Type Severity Reaction Status Date / Time No Known Allergies Allergy Verified 09/06/17 04:32 Medications: Current Medications Albuterol/Ipratropium (Duoneb) 3 ml NEB [id number] PRN PRN Reason: SOB &/or Wheezing Amlodipine Besylate (Norvasc) 10 mg PO DAILY [facility] Last Admin: 09/11/17 08:50 Dose: 10 mg Amoxicillin/Clavulanate Potassium (Augmentin) 875 mg PO Q12HR [facility] Stop: 09/13/17 21:01 Last Admin: 09/11/17 08:49 Dose: 875 mg Atorvastatin Calcium (Lipitor) 40 mg PO DAILY [facility] Last Admin: 09/11/17 08:49 Dose: 40 mg Fluconazole (Diflucan) 200 mg PO DAILY [facility] Last Admin: 09/11/17 08:49 Dose: 200 mg Hydralazine HCl (Apresoline) 5 mg SLOW IVP Q15MIN PRN PRN Reason: SBP > 160, HR < 70 Labetalol HCl (Normodyne) 10 mg SLOW IVP Q4H PRN PRN Reason: SBP > 160, HR > 70 Levetiracetam (Keppra) 500 mg PO BID [facility] Last Admin: 09/11/17 08:49 Dose: 500 mg Melatonin (Melatonin) 9 mg PO HSPRN PRN PRN Reason: Insomnia Ondansetron HCl (Zofran) 4 mg IVP BIDPRN PRN PRN Reason: Nausea/Vomiting [Stribild] 1 Tab 0 each PO QAM-[facility] Sodium Chloride (Flush - Normal Saline) 10 ml IVF PRN PRN PRN Reason: Saline Flush Last Admin: 09/10/17 08:04 Dose: 10 ml Trimethoprim/Sulfamethoxazole (Bactrim Ds) 1 tab PO DAILY [facility] Last Admin: 09/11/17 08:50 Dose: 1 tab
[2017-09-12 05:34] LABS: Hemoglobin 12.5 g/dL (14.0-18.0); Mean Corpuscular HGB CONC 31.9 g/dL (32.0-36.0); Mean Corpuscular Hemoglobin 28.6 pg (27.0-31.0); Mean Corpuscular Volume 89.8 fL (78.0-98.0); Mean Platelet Volume 5.9 fL (7.4-10.4); Platelet Count 241 thou/uL (130-400); RBC Distribution Width 13.7 % (11.5-14.5); Red Blood Cell (RBC) Count 4.35 mill/uL (4.70-6.10); White Blood Cell (WBC) Count 2.7 thou/uL (4.8-10.8)
[2017-09-12 05:42] LABS: Anion Gap 14 mmol/L (10-20); BUN (Urea Nitrogen) 12 mg/dL (8.4-25.7); Calc. Creatinine Clearance 111 mL/min (70-130); Calcium 9.3 mg/dL (7.8-10.44); Carbon Dioxide 24 mmol/L (23-31); Chloride 102 mmol/L (98-107); Estimated GFR-MDRD Greater than 90; Glucose 72 mg/dL (80-115); Potassium 4.1 mmol/L (3.5-5.1); Sodium 136 mmol/L (136-145)
[2017-09-12] MEDS: Amlodipine 10 MG TAB PO SCH (08:58)
[2017-09-12] MEDS: Amoxicillin/Potassium Clav 875 MG TAB PO SCH ×2 (08:58→20:58)
[2017-09-12] MEDS: Sulfameth/Trimethoprim DS 800-160mg TAB PO SCH (08:58)
[2017-09-12] MEDS: Fluconazole 100 MG TAB PO SCH (08:58)
[2017-09-12] MEDS: levETIRAcetam 500 MG TAB PO SCH ×2 (08:59→20:58)
[2017-09-12] MEDS: Atorvastatin Calcium 40 MG TAB PO SCH (08:59)
--- NOTE | 2017-09-12 09:52 | PDOC.PN ---
- Subjective Encounter Start Date: 09/12/17 Encounter Start Time: 09:48 66 M with a PMH of CVA (about 6 months ago) and who did not follow up with physicians. He was admitted on account of seizures with prolonged post ictal stage, leading to acute hypoxic respiratory failure, leading to him being intubated and sedated. CT brain showed Left Frontal Parenchymal hemorrhage. Started on IV Keppra and transitioned to PO. 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 He is awaiting placement at a rehabilitation facility. Seen and examined. He has no complaints today. No acute events overnight. - Objective MAR Reviewed: Yes Vital Signs & Weight: Vital Signs (12 hours) Temp Pulse Resp BP BP Pulse Ox 09/12/17 08:58 87 107/68 09/12/17 08:52 98.8 F 87 16 97 09/12/17 07:38 98.8 F 87 16 107/68 97 09/12/17 04:00 98.4 F 87 18 114/77 93 L 09/12/17 00:00 98.4 F 87 18 122/73 94 L Weight Admit Weight 152 lb Weight 154 lb 4.8 oz Most Recent Monitor Data Heart Rate from ECG 94 NIBP 166/75 NIBP BP-Mean 93 Respiration from ECG 17 SpO2 94 I&O: 09/11/17 09/12/17 09/13/17 06:59 06:59 06:59 Intake Total 1100 1370 Output Total 400 1150 Balance 700 220 Result Diagrams: 09/12/17 05:19 09/12/17 05:19 Phys Exam - Physical Examination Constitutional: NAD HEENT: moist MMs, sclera anicteric Neck: supple, full ROM Respiratory: no wheezing, no rales, no rhonchi, clear to auscultation bilateral Cardiovascular: RRR, no significant murmur, no rub Gastrointestinal: soft, non-tender, no distention, positive bowel sounds Musculoskeletal: no edema, pulses present Neurological: non-focal Psychiatric: normal affect, A&O x 3 Skin: no rash, normal turgor Dx/Plan (1) Left lower lobe pneumonia Code(s): J18.1 - LOBAR PNEUMONIA, UNSPECIFIED ORGANISM Status: Acute Qualifiers: Pneumonia type: due to unspecified organism Qualified Code(s): J18.1 - Lobar pneumonia, unspecified organism Comment: Stable. Continue Augmentin- End date September 13, 2017. Cultures negative. Will need repeat CXR in 4-6 weeks. (2) Seizure Code(s): R56.9 - UNSPECIFIED CONVULSIONS Status: Chronic Comment: Stabe. Seizure free. Continue Keppra. (3) Intracranial hemorrhage Code(s): I62.9 - NONTRAUMATIC INTRACRANIAL HEMORRHAGE, UNSPECIFIED Status: Acute Comment: Repeat CT showed stable hematoma. (4) Polysubstance abuse Code(s): F19.10 - OTHER PSYCHOACTIVE SUBSTANCE ABUSE, UNCOMPLICATED Status: Chronic Comment: Encouraged on quitting. (5) HIV (human immunodeficiency virus infection) Status: Chronic (6) HTN (hypertension) Code(s): I10 - ESSENTIAL (PRIMARY) HYPERTENSION Status: Chronic Qualifiers: Hypertension type: essential hypertension Qualified Code(s): I10 - Essential (primary) hypertension Comment: Fair control. Continue amlodipine. - Plan cont current plan of care, PT/OT, social and political studies professor, speech therapy, out of bed/ ambulate, DVT proph w/SCDs * . Review of Systems - Medications/Allergies Allergies/Adverse Reactions: Allergies Allergy/AdvReac Type Severity Reaction Status Date / Time No Known Allergies Allergy Verified 09/06/17 04:32 Medications: Current Medications Albuterol/Ipratropium (Duoneb) 3 ml NEB [id number] PRN PRN Reason: SOB &/or Wheezing Amlodipine Besylate (Norvasc) 10 mg PO DAILY [facility] Last Admin: 09/12/17 08:58 Dose: 10 mg Amoxicillin/Clavulanate Potassium (Augmentin) 875 mg PO Q12HR [facility] Stop: 09/13/17 21:01 Last Admin: 09/12/17 08:58 Dose: 875 mg Atorvastatin Calcium (Lipitor) 40 mg PO DAILY [facility] Last Admin: 09/12/17 08:59 Dose: 40 mg Fluconazole (Diflucan) 200 mg PO DAILY [facility] Last Admin: 09/12/17 08:58 Dose: 200 mg Hydralazine HCl (Apresoline) 5 mg SLOW IVP Q15MIN PRN PRN Reason: SBP > 160, HR < 70 Labetalol HCl (Normodyne) 10 mg SLOW IVP Q4H PRN PRN Reason: SBP > 160, HR > 70 Levetiracetam (Keppra) 500 mg PO BID [facility] Last Admin: 09/12/17 08:59 Dose: 500 mg Melatonin (Melatonin) 9 mg PO HSPRN PRN PRN Reason: Insomnia Ondansetron HCl (Zofran) 4 mg IVP BIDPRN PRN PRN Reason: Nausea/Vomiting [Stribild] 1 Tab 0 each PO QAM-[facility] Sodium Chloride (Flush - Normal Saline) 10 ml IVF PRN PRN PRN Reason: Saline Flush Last Admin: 09/12/17 08:59 Dose: 10 ml Trimethoprim/Sulfamethoxazole (Bactrim Ds) 1 tab PO DAILY [facility] Last Admin: 09/12/17 08:58 Dose: 1 tab
[2017-09-13] MEDS: levETIRAcetam 500 MG TAB PO SCH ×2 (08:14→20:50)
[2017-09-13] MEDS: Amlodipine 10 MG TAB PO SCH (08:14)
[2017-09-13] MEDS: Atorvastatin Calcium 40 MG TAB PO SCH (08:14)
[2017-09-13] MEDS: Sulfameth/Trimethoprim DS 800-160mg TAB PO SCH (08:14)
[2017-09-13] MEDS: Amoxicillin/Potassium Clav 875 MG TAB PO SCH ×2 (08:14→20:50)
[2017-09-13] MEDS: Fluconazole 100 MG TAB PO SCH (08:14)
--- NOTE | 2017-09-13 11:48 | PDOC.PN ---
- Subjective Encounter Start Date: 09/13/17 Encounter Start Time: 11:46 Mr. Decker was seen today in follow-up. He was found down at home, and was discovered to have what is suspected to be a traumatic frontal ICH . He also was in status epilepticus. He was intubated, and placed on Keppra IV which has been transition to oral after he has been extubated. He is now awake and alert and does not have any complaints. - Objective MAR Reviewed: Yes Vital Signs & Weight: Vital Signs (12 hours) Temp Pulse Resp BP BP Pulse Ox 09/13/17 08:14 74 109/68 09/13/17 07:50 98.3 F 74 16 96 09/13/17 07:48 98.3 F 74 16 109/68 96 09/13/17 04:00 98.2 F 89 18 101/58 L 97 09/13/17 00:35 95 09/13/17 00:00 98.3 F 89 18 113/72 95 Weight Admit Weight 152 lb Weight 148 lb 4.8 oz Most Recent Monitor Data Heart Rate from ECG 94 NIBP 166/75 NIBP BP-Mean 93 Respiration from ECG 17 SpO2 94 I&O: 09/12/17 09/13/17 09/14/17 06:59 06:59 06:59 Intake Total 1370 700 Output Total 1150 300 Balance 220 400 Result Diagrams: 09/12/17 05:19 09/12/17 05:19 Phys Exam - Physical Examination HEENT: PERRLA Respiratory: no wheezing, no rales, no rhonchi, clear to auscultation bilateral Cardiovascular: RRR, no significant murmur, no rub Gastrointestinal: soft, non-tender, no distention, positive bowel sounds Musculoskeletal: no edema, edema present Dx/Plan (1) Left lower lobe pneumonia Code(s): J18.1 - LOBAR PNEUMONIA, UNSPECIFIED ORGANISM Status: Acute Qualifiers: Pneumonia type: due to unspecified organism Qualified Code(s): J18.1 - Lobar pneumonia, unspecified organism Comment: Stable. Continue Augmentin- End date September 13, 2017. Cultures negative. Will need repeat CXR in 4-6 weeks. (2) HTN (hypertension) Code(s): I10 - ESSENTIAL (PRIMARY) HYPERTENSION Status: Chronic Qualifiers: Hypertension type: essential hypertension Qualified Code(s): I10 - Essential (primary) hypertension Comment: Fair control. Continue amlodipine. (3) Intracranial hemorrhage Code(s): I62.9 - NONTRAUMATIC INTRACRANIAL HEMORRHAGE, UNSPECIFIED Status: Acute Comment: Repeat CT showed stable hematoma. (4) HIV (human immunodeficiency virus infection) Status: Chronic (5) Seizure Code(s): R56.9 - UNSPECIFIED CONVULSIONS Status: Chronic Comment: Stabe. Seizure free. Continue Keppra. - Plan * ICH- he is awake and alert, and has no significant motor deficit * Seizures- continue Keppra * HIV- he is on HAART therapy, along with Prophylaxis with Bactrim, and Diflucan * Aspiration Pneumonia- continue Augmentin * HTN- blood pressure is stable * Awaiting placement in Rehab.
[2017-09-14] MEDS: levETIRAcetam 500 MG TAB PO SCH ×2 (08:29→20:47)
[2017-09-14] MEDS: Sulfameth/Trimethoprim DS 800-160mg TAB PO SCH (08:29)
[2017-09-14] MEDS: Fluconazole 100 MG TAB PO SCH (08:29)
[2017-09-14] MEDS: Atorvastatin Calcium 40 MG TAB PO SCH (08:29)
[2017-09-14] MEDS: Amlodipine 10 MG TAB PO SCH (08:29)
--- NOTE | 2017-09-14 15:02 | PDOC.PN ---
- Subjective Encounter Start Date: 09/14/17 Encounter Start Time: 14:59 Mr. Decker does not have any complaints today. He has not been eating, but he blames this on the food tasting " all the same". - Objective MAR Reviewed: Yes Vital Signs & Weight: Vital Signs (12 hours) Temp Pulse Resp BP BP BP Pulse Ox 09/14/17 11:57 98.2 F 75 16 88/71 L 92 L 09/14/17 08:29 83 101/66 09/14/17 08:00 98.2 F 83 12 09/14/17 07:45 98.2 F 83 12 94/68 95 09/14/17 03:22 97.7 F 82 22 H 93/62 97 Weight Admit Weight 152 lb Weight 147 lb 8 oz Most Recent Monitor Data Heart Rate from ECG 94 NIBP 166/75 NIBP BP-Mean 93 Respiration from ECG 17 SpO2 94 I&O: 09/13/17 09/14/17 09/15/17 06:59 06:59 06:59 Intake Total 700 1400 120 Output Total 300 750 Balance 400 650 120 Result Diagrams: 09/12/17 05:19 09/12/17 05:19 Phys Exam - Physical Examination HEENT: PERRLA Respiratory: no wheezing, no rales, no rhonchi, clear to auscultation bilateral Cardiovascular: RRR, no significant murmur, no rub Gastrointestinal: soft, non-tender, no distention, positive bowel sounds Musculoskeletal: no edema Dx/Plan (1) Left lower lobe pneumonia Code(s): J18.1 - LOBAR PNEUMONIA, UNSPECIFIED ORGANISM Status: Acute Qualifiers: Pneumonia type: due to unspecified organism Qualified Code(s): J18.1 - Lobar pneumonia, unspecified organism Comment: Stable. Continue Augmentin- End date September 13, 2017. Cultures negative. Will need repeat CXR in 4-6 weeks. (2) HTN (hypertension) Code(s): I10 - ESSENTIAL (PRIMARY) HYPERTENSION Status: Chronic Qualifiers: Hypertension type: essential hypertension Qualified Code(s): I10 - Essential (primary) hypertension Comment: Fair control. Continue amlodipine. (3) Intracranial hemorrhage Code(s): I62.9 - NONTRAUMATIC INTRACRANIAL HEMORRHAGE, UNSPECIFIED Status: Acute Comment: Repeat CT showed stable hematoma. (4) HIV (human immunodeficiency virus infection) Status: Chronic (5) Seizure Code(s): R56.9 - UNSPECIFIED CONVULSIONS Status: Chronic Comment: Stabe. Seizure free. Continue Keppra. - Plan * ICH- traumatic- this is clinically stable * Pneumonia- aspiration- he has completed a course of Augmentin, and is breathing fine on room air * HIV- Will need to reconcile, or obtain the Stribild, and continue Bactrim and Difulcan Prophylaxis * HTN- blood pressure has been a bit low, and will decrease the dose of Amlodipine.
[2017-09-15 05:02] LABS: Anion Gap 13 mmol/L (10-20); BUN (Urea Nitrogen) 17 mg/dL (8.4-25.7); Calc. Creatinine Clearance 80 mL/min (70-130); Calcium 9.3 mg/dL (7.8-10.44); Carbon Dioxide 25 mmol/L (23-31); Chloride 103 mmol/L (98-107); Estimated GFR-MDRD Greater than 90; Glucose 83 mg/dL (80-115); Hemoglobin 13.3 g/dL (14.0-18.0); Mean Corpuscular Hemoglobin 29.7 pg (27.0-31.0); Mean Corpuscular Volume 90.1 fL (78.0-98.0); Mean Platelet Volume 6.1 fL (7.4-10.4); Platelet Count 250 thou/uL (130-400); Potassium 4.7 mmol/L (3.5-5.1); RBC Distribution Width 13.5 % (11.5-14.5); Red Blood Cell (RBC) Count 4.48 mill/uL (4.70-6.10); Sodium 136 mmol/L (136-145); White Blood Cell (WBC) Count 3.7 thou/uL (4.8-10.8)
[2017-09-15] MEDS: levETIRAcetam 500 MG TAB PO SCH (08:18)
[2017-09-15] MEDS: Fluconazole 100 MG TAB PO SCH (08:20)
[2017-09-15] MEDS: Sulfameth/Trimethoprim DS 800-160mg TAB PO SCH (08:20)
[2017-09-15] MEDS ORDERED: Amlodipine 5 MG TAB PO SCH (09:00)
[2017-09-15 11:56] VITALS: BP 114/68; TEMP 98.1
[2017-09-15] MEDS ORDERED: Prevnar 13-Val Conj/PF 0.5 ML SYRINGE IM ONE (13:00)
[2017-09-15] MEDS ORDERED: Atorvastatin Calcium 40 MG TAB PO SCH (21:00)
--- NOTE | 2017-09-16 03:01 | DIS ---
DATE OF ADMISSION: 09/06/2017 DATE OF DISCHARGE: 09/15/2017 DISCHARGE DIAGNOSES: As the followin. Left lower lobe pneumonia. 2. Intracranial hemorrhage. 3. Hypertension. 4. Human immunodeficiency virus. HOSPITAL COURSE: The patient is a very pleasant 66-year-old male with a history of HIV who has not b een very compliant with his medication per Infectious Disease note. Last time, the patient has been put on prophylactic medications given a CD4 count at 50. The patient was found unresponsive. The enzo mendoza at that time was intubated and was admitted into the ICU. The patient had EEG done for possibl e seizure, which indicated abnormal finding suggestive of diffuse slowing and suppression consistent with diffuse encephalopathic process. It was presumed that the patient apparently had a CVA about 6 months ago prior to this current admission and has not been following up with his physicians as outpa reji. Patient did have a seizure based on the EEG finding and was on a prolonged postictal stage, w hich most likely related to his hypoxic respiratory failure for which he was intubated. Patient had a left frontal parenchymal hemorrhage due to the fall and was initially started on Keppra. Patient c ontinued to improve throughout the hospital stay. He will be discharged to rehab facility for streng thening. Patient has completed his dose of possible aspiration pneumonia after his fall and also aft er his seizure. He has been educated on starting back on his HIV medications. DISCHARGE MEDICATIONS: As the following: Patient will be on Keppra 500 mg p.o. b.i.d., Bactrim 800 mg p.o. daily, melatonin 9 mg at bedtime p.r.n., fluconazole 200 mg daily, Stribild 1 p.o. q.a.m., Di flucan gel q.i.d. p.r.n., atorvastatin 40 mg daily, Norvasc 5 mg daily. Patient was asked to follow up with his neurologist. He does have a nontraumatic intracranial hemorrhage that was present on the CAT scan. PHYSICAL EXAMINATION: VITAL SIGNS: Temperature of 97.8, 74 heart rate, 16 respirations, 95% on room air, 115/72. GENERAL: He is awake, alert, oriented x3, does not appear in distress. CARDIOVASCULAR: S1, S2 present. No murmurs, rubs or gallops. ABDOMEN: Soft, nontender. Bowel sounds present x2. EXTREMITIES: No edema. Pedal pulses present x2. NEUROLOGIC: He does have some weakness on his left lower extremity which according to him is chronic . DISCHARGE INSTRUCTIONS: The patient will be discharged to rehabilitation. Follow up with PCP and al brianna with Neurology as outpatient.
== END 2017-09-15 13:18 | DRG 64 ==
LOC: ERS 23:49 → CCU 09-06 01:00 → 2SE 09-08 21:20
PROVIDERS: ADMIT Hospitalist; ATTEND Hospitalist
DX: I62.9 Nontraumatic intracranial hemorrhage, unspecified (principal); I21.A1 Myocardial infarction type 2; J96.01 Acute respiratory failure with hypoxia; J69.0 Pneumonitis due to inhalation of food and vomit; I50.9 Heart failure, unspecified; G40.901 Epilepsy, unspecified, not intractable, with status epilepticus; E87.6 Hypokalemia; Z21 Asymptomatic human immunodeficiency virus [HIV] infection status
CPT/HCPCS: 36415; 36416; 51702; 70450; 71045; 80048; 80053; 80061; 80306; 80307; 81003; 81015; 82140; 82550; 82553; 82805; 83605; 83690; 83880; 84146; 84443; 84484; 85025; 85027; 85610; 85730; 87040; 90471; 90670; 93005; 94002; 94003; 94760; 95816; 95819; 96365; 96367; 96368; G0009; G8978-GP-CK; G8979-GP-CI; G8987-GO-CN; G8988-GO-CL; G8996-GN-CI; G8997-GN-CI; J1953; J1956; J2543; J2704; J3010; J3370; J3480; J7050; Q2009; S0028

== ENCOUNTER 2020-01-02 19:21 | Inpatient (IN) | payer MEDICARE, MEDICAID, OTHER ==
[2020-01-02] MEDS ORDERED: Morphine 4 MG/ML VIAL ONE (20:00)
--- NOTE | 2020-01-02 20:22 | CT ---
CT Cervical Spine WO Con Indication: Fall with neck pain COMPARISON: Prior exam dated June 18, 2017 FINDINGS: Fracture: None. Spinal alignment: No acute malalignment. Craniocervical junction: Within normal limits. Vertebral body heights: Maintained. Cervical spine degenerative change: There is advanced disc osteophyte complex at C3-C4 which is stabl e inducing at least moderate central canal narrowing. There is at least moderate central canal narrowing at C5-6 due to a disc osteophyte complex which appears similar. There is at least mild osse ous central canal narrowing at C6-7 due to a disc osteophyte complex appears stable. Lung apices: Not well seen IMPRESSION: No acute osseous abnormality. Stable moderate to prominent cervical spondylosis with multilevel osseous central canal narrowing as above.
--- NOTE | 2020-01-02 21:04 | RAD ---
THREE VIEWS RIGHT SHOULDER: History: Fall with shoulder pain. FINDINGS: Three views of the right shoulder shows no evidence of acute fracture or dislocation. No degenerative changes are seen. The visualized right thorax is unremarkable. IMPRESSION: No evidence of acute osseous abnormality. POS: EAA
--- NOTE | 2020-01-02 21:08 | RAD ---
THREE VIEWS LEFT SHOULDER: History: Fall with left shoulder pain. FINDINGS: Three views of the left shoulder shows no evidence of acute fracture or dislocation. No degenerative changes are seen. Mild soft tissue swelling is seen. IMPRESSION: No evidence of acute osseous abnormality. POS: EAA
--- NOTE | 2020-01-02 21:18 | RAD ---
SINGLE VIEW OF THE CHEST: Comparison: 09-05-17 History: Fall with femoral hemorrhage. HIV positive. FINDINGS: Single view of the chest shows a normal sized cardiomediastinal silhouette. Atelectasis is seen in th e right lung base. There is no evidence of consolidation, mass or pleural effusion. Degenerative flores ge is seen in the spine. IMPRESSION: No evidence of acute cardiopulmonary disease. POS: EAA
--- NOTE | 2020-01-02 21:22 | CT ---
CT OF THE BRAIN WITHOUT CONTRAST: Comparison: 09-06-17 History: Fell and hit back of head with contusion. Technique: Multiple contiguous axial images were obtained in a CT of the brain without contrast. FINDINGS: There is a subdural hematoma along the left frontal and parietal convexities measuring approximately 7 mm in thickness. No significant shift of the midline to the right is seen. No parenchymal contusion is appreciated. There are scattered hypodensities in the subcortical and periventricular white matte r, likely secondary to small vessel ischemic disease. No downward herniation is seen. The calvarium and overlying soft tissues are unremarkable. The visualized paranasal sinuses and masto id air cells are well aerated. IMPRESSION: Left sided subdural hematoma as above. Dr. Cuevas was notified of the findings at 8:19 p.m. on 01-01. POS: CRISTAL
[2020-01-02 21:31] LABS: #Eosinphils 0.2 thou/uL (0.0-0.7); #Monocytes 0.9 thou/uL (0.11-0.59); #Neutrophils 6.7 thou/uL (1.40-6.50); %Basophils 0.5 % (0.0-1.0); %Eosinophils 1.6 % (0.0-10.0); %Lymphocytes 27.6 % (21.0-51.0); %Monocytes 8.3 % (0.0-10.0); Hemoglobin 15.1 g/dL (14.0-18.0); Mean Corpuscular HGB CONC 31.6 g/dL (32.0-36.0); Mean Corpuscular Hemoglobin 30.8 pg (27.0-31.0); Mean Corpuscular Volume 97.4 fL (78.0-98.0); Platelet Count 189 thou/uL (130-400); RBC Distribution Width 12.5 % (11.5-14.5); Red Blood Cell (RBC) Count 4.91 mill/uL (4.70-6.10); White Blood Cell (WBC) Count 10.8 thou/uL (4.8-10.8)
[2020-01-02 21:33] LABS: PTT 28.1 sec (22.9-36.1); Prothrombin Time 13.7 sec (12.0-14.7)
[2020-01-02 21:35] LABS: ALT (SGPT) 16 U/L (8-55); AST (SGOT) 35 U/L (5-34); Alkaline Phosphatase 121 U/L (40-110); Anion Gap 17 mmol/L (10-20); BUN (Urea Nitrogen) 12 mg/dL (8.4-25.7); Bilirubin, Total 0.3 mg/dL (0.2-1.2); Calc. Creatinine Clearance 0 mL/min (70-130); Calcium 9.2 mg/dL (7.8-10.44); Carbon Dioxide 16 mmol/L (23-31); Chloride 110 mmol/L (98-107); Estimated GFR-MDRD Greater than 90; Glucose 107 mg/dL (80-115); Potassium 5.1 mmol/L (3.5-5.1); Sodium 138 mmol/L (136-145)
--- NOTE | 2020-01-02 23:28 | HP ---
This is Simón Faustin PA-C dictating a report for Cordell Arciniega MD. CONSULTATIONS: Neurosurgery, Dr. Sadler. HISTORY OF PRESENT ILLNESS: The patient is a 69-year-old man who was ambulating a sidewalk up a slight grade when he felt his legs give out causing the fall backwards hitting his head. The patient does not recall a loss of consciousness, but bystanders said that the patient had a brief loss of consciousness and was dazed at which time they called an ambulance and the patient was brought to the emergency department where he was evaluated and examined and noted to have a subdural hematoma at which time we were asked to evaluate the patient for admission and obtain neurosurgical consultation. The patient reports that he has had mobility and balance issues since his CVA greater than a year ago. He also complains of pain across his shoulders, specifically his trapezius muscles. The patient denies any syncopal symptoms. ALLERGIES: NONE. CURRENT MEDICATIONS: 1. Truvada. 2. Baby aspirin. The remainder of his medication he is unsure of. He believes he takes something for blood pressure. PAST MEDICAL HISTORY: Hypertension, hyperlipidemia, and HIV. The patient is unsure of his CD4 count. Past medical history also includes previous stroke. PAST SURGICAL HISTORY: Patient denies. SOCIAL HISTORY: The patient reports that he drinks occasionally during the week. Smokes cigarettes approximately a half a pack of cigarettes per day. Denies drug use. He lives in [place] with a roommate. REVIEW OF SYSTEMS: 10-point review of systems is negative as otherwise stated. PHYSICAL EXAMINATION: VITAL SIGNS: Blood pressure 120/74, heart rate 79, respirations 19, oxygen saturation 95% on room air, and temperature is 98.7. GENERAL: The patient is resting comfortably in bed. His eyes were closed when I entered the room as he said the light was bothering. He awakened easily to verbal stimuli. He was appropriate. He had some confusion primarily related to his medical history. His [place] Coma Scale be 13, -1 for eye opening as the eyes were closed when I came in and -1 for confusion. HEENT: Head is normocephalic with a contusion and small hematoma noted in the occiput with a small abrasion and stopped bleeding. Eyes are PERRLA bilaterally. Extraocular motion intact. Ears are atraumatic without discharge. Nose is atraumatic without discharge. Oropharynx is clear. NECK: Nontender. Trachea is midline with no JVD. CHEST: Clear to auscultation with good inspiratory and expiratory effort. HEART: Regular rate and rhythm. ABDOMEN: Soft, flat, nontender with active bowel sounds. EXTREMITIES: Neurovascularly intact x4. BACK: The patient has tenderness to palpation to his upper trapezius muscles. LABORATORY FINDINGS: White blood cell count 10.8, hemoglobin 15.1, hematocrit 47.9, platelets 189. Sodium 138, potassium 5.1, chloride 110, CO2 of 16, BUN 12, creatinine 0.80, glucose 107, PT 14, INR 1.0, PTT 28. RADIOGRAPHIC REPORTS: CT of the brain without contrast shows a left-sided subdural hematoma. CT of the C-spine without contrast shows no acute osseous abnormality. AP chest x-ray shows no evidence of acute cardiopulmonary disease. 3-views of the left and right shoulders show no evidence of acute osseous abnormality. ASSESSMENT AND PLAN: 1. Status post ground level fall. 2. Left-sided subdural hematoma with loss of consciousness less than 5 minutes. 3. Scalp abrasion. 4. Scalp hematoma. 5. Soft tissue contusion, bilateral shoulders. Plan will be to admit the patient to the IMCU for frequent neuro exams. We will repeat his head CT in the morning sooner as indicated. The patient will have pain control with nonnarcotic pain medications. Pulmonary toilet, gastritis, and mechanical VTE prophylaxis. Neurosurgery was notified by the emergency department and this evaluation, examination, laboratory, and radiographic findings will be discussed with Dr. Arciniega after this dictation. Job ID: [id number]
[2020-01-02] MEDS ORDERED: Ondansetron PF 4 MG/2 ML Vial IVP PRN (23:50)
[2020-01-02] MEDS ORDERED: Ondansetron ODT 4 MG TAB PO PRN (23:50)
[2020-01-02] MEDS ORDERED: Dextrose 50% Abboject 50 ML SYRINGE SLOW IVP PRN (23:50)
[2020-01-02] MEDS ORDERED: Dextrose 5% in Water 1,000 ML IV PRN (23:50)
[2020-01-02] MEDS ORDERED: Sodium Chloride 0.9% 1,000 ML IV SCH (23:55)
[2020-01-03] MEDS ORDERED: Amlodipine 5 MG TAB PO SCH (01:00)
[2020-01-03] MEDS ORDERED: traMADol HCl 50 MG TAB PO PRN (01:32)
[2020-01-03] MEDS: Acetaminophen 500 MG TAB PO SCH ×4 (02:06→20:01)
[2020-01-03] MEDS: Cyclobenzaprine 10 MG TAB PO PRN ×2 (02:07→20:02)
[2020-01-03 02:10] VITALS: BMI 24.4
[2020-01-03] MEDS: traMADol HCl 50 MG TAB PO PRN ×2 (03:38→18:20)
--- NOTE | 2020-01-03 06:41 | CON ---
DATE OF CONSULTATION: 01/03/2020 SUBJECTIVE: The patient was seen and examined. The patient is a 69-year-old male, who had a fall last night. He has been on aspirin. He is at his neurologic baseline and is interactive and oriented. He has no focal findings. CT scan has revealed a thin, acute left subdural hematoma. This was stable on followup CT this morning. IMPRESSION AND PLAN: Acute traumatic subdural hematoma. Stable clinically and radiographically. Can be mobilized at dismissal. Discontinue aspirin. I will arrange a 4-week followup head CT. Job ID: [id number]
--- NOTE | 2020-01-03 07:40 | CT ---
PRELIMINARY REPORT/DIRECT RADIOLOGY/EMERGENCY AFTER HOURS PROCEDURE: EXAM: CT Head Without Intravenous Contrast. CLINICAL HISTORY: F/U SUBDURAL HEMATOMA TECHNIQUE: Axial computed tomography images of the head/brain without intravenous contrast. COMPARISON: CTSR - CT BRAIN WO CON - 01/02/2020 08:11 PM CDT FINDINGS: BRAIN: Subdural hematoma overlying the left labrum measuring up to 7 mm and extending along the falx and tentorium is similar in appearance compared to prior. There is mild mass-effect upon the underlying sulci. There is no midline shift. VENTRICLES: No hydrocephalus. ORBITS: The orbits are unremarkable. SINUSES AND MASTOIDS: The paranasal sinuses and mastoid air cells are clear. SOFT TISSUES: Extracranial soft tissue hematoma containing fluid and gas overlying the left parietal occipital bones, similar to prior. BONES: No acute skull fracture. IMPRESSION: Left subdural hematoma measuring up to 7 mm in maximum thickness, not significant changed in appearance compared to prior. No new intracranial hemorrhage. No hydrocephalus. ELECTRONICALLY SIGNED BY: Minerva Mcgraw MD Jan 03, 2020 3:52:52 AM CDT FINAL REPORT HEAD CT WITHOUT CONTRAST: DATE: 01/03/2020. COMPARISON: 01/02/2020. HISTORY: Reevaluate intracranial hemorrhage, left subdural hematoma. FINDINGS: I agree with the preliminary report. There is a subdural hematoma on the left with components within the lateral aspect of the middle cranial fossa, the posterior occipital region, the posterior parietal region, and the lateral and anterior left frontal region. There is hemorrhage along the falx as well. When compared to the 01/02/2020 exam the subdural blood has not significantly changed. Hematoma along the falx measures up to 4 mm in transverse dimension, stable. The subdural blood in th e left frontal region at the axial level of the frontal horns of the lateral ventricles measures up to 7 mm in transverse dimension, stable as well. There is no significant midline shift. The visualized paranasal sinuses and mastoid air cells are well-aerated. No displaced calvarial fract ure. IMPRESSION: Stable left subdural hematoma. Transcribed Date/Time: 01/03/2020 7:47 AM
[2020-01-03] MEDS: Amlodipine 5 MG TAB PO SCH (10:19)
[2020-01-03] MEDS: Emtricitabine/Tenofovir 200-300 MG TAB PO SCH (10:19)
[2020-01-03] MEDS: Famotidine 20 MG TAB PO SCH ×2 (10:19→20:02)
--- NOTE | 2020-01-03 11:08 | RAD ---
Exam:Left knee 4 views HISTORY: Pain COMPARISON: None FINDINGS: Soft tissue swelling and suprapatellar effusion. Fracture involving the superior aspect of the patella. Mild narrowing of the medial compartment. Mild bony mineralization. IMPRESSION: Fracture with associated posttraumatic changes in the joint and soft tissues.
[2020-01-03 11:46] LABS: SARS-CoV-2 MS2 Positive; SARS-CoV-2 N Gene Negative; SARS-CoV-2 S Gene Negative; SARS-CoV-2 by NAA Not Detected (NotDetected); SARS-CoV-2 orf1ab Negative
--- NOTE | 2020-01-03 16:30 | CON ---
DATE OF CONSULTATION: 01/03/2020 This is Edna Salamanca PA-C dictating a report for Zack Roldan MD. REQUESTING PHYSICIAN: Trauma Services. CONSULTING PHYSICIAN: Zack Roldan MD REASON FOR CONSULTATION: Left superior pole patella fracture. HISTORY OF PRESENT ILLNESS: This is a 69-year-old gentleman who was ambulating along a sidewalk up a slight grade when he felt his legs give out causing him to fall backwards and hit his head. He does not recall loss of consciousness, but bystanders said the patient had a brief loss of consciousness and was dazed at the time of which they called an ambulance. The patient was brought to the emergency department where he was evaluated and examined and noted to have a subdural hematoma. Trauma has admitted this patient and obtained a Neurological consultation. The patient does report that he has had mobility and balance issues since a CVA a little over a year ago. Upon further workup, the patient was found to have a left knee superior pole patella fracture with complaints of knee pain and pain across both of his shoulders. We have been consulted for these reasons. Currently at bedside, he continues to report posterior shoulder pain. States that he has had some history of shoulder pain, but this appears worse than normal. Also reports left knee pain without any numbness or tingling. This is worse with movement and relieved with rest. He does have difficulty flexing the knee. PAST MEDICAL HISTORY: Hypertension, hyperlipidemia, and HIV. The patient is unsure of his CD4 count. Past medical history also includes previous stroke. PAST SURGICAL HISTORY: The patient denies. SOCIAL HISTORY: The patient lives with a roommate. Reports that he drinks occasionally. Also, reports that he smokes cigarettes approximately a half a pack per day. Denies drug use. The patient states he ambulates majority at the time with a rolling walker or a cane. He states he prefers the walker. REVIEW OF SYSTEMS: Ten-point review of systems conducted and otherwise negative except for stated above. PHYSICAL EXAMINATION: VITAL SIGNS: Show vital signs including temperature of 97.8, pulse of 64, respiratory rate of 18, O2 saturation 95 on room air, and blood pressure 144/69. GENERAL: The patient is awake and alert. He is in no apparent distress. He is pleasant and cooperative. Cooperative with exam today. HEENT: Head is normocephalic and atraumatic. NECK: Supple. Trachea midline. Breathing is nonlabored. EXTREMITIES: Evaluation of his extremity shows the left lower extremity to be held in a position of comfort around 30 degrees of flexion in the knee. There is some soft tissue swelling, pronounced at the patella and superior to the patella. Skin is intact. No ecchymosis. He is tender to palpation along the superior pole of the patella. He is unable to flex or fully extend at the knee. He is unable to do a straight leg raise. Distal neurovascular status is intact. Evaluation of the contralateral knee shows no evidence of trauma. He is also unable to hold a straight leg raise on the side. Evaluation of bilateral upper extremities shows that the patient does have forward flexion in both shoulders. He states this reproduces pain in the posterior shoulder. He is mildly tender to palpation along the scapula on bilateral shoulders. No signs of trauma. Distal neurovascular status intact bilaterally. RADIOGRAPHIC IMAGING: Was reviewed today. Right and left shoulder x-rays show no acute abnormalities. X-rays of the left knee show a superior pole avulsion fracture of the patella. ASSESSMENT: Status post fall with subdural hematoma and left superior avulsion of the patella. PLAN: At this time, treatment will be nonsurgical. We will manage this with a knee immobilizer. He will wear this while in bed as he is currently held in a position of flexion. He may also weightbear as tolerated as long as he is in extension in a knee immobilizer. We will follow up with him in the clinic in approximately 3 to 4 weeks of re-evaluation. Job ID: [id number]
[2020-01-03] MEDS ORDERED: FLU VACC QS2020-21(65YR UP)/PF 240 MCG/0.7 ML SYRINGE IM ONE (21:00)
[2020-01-03] MEDS ORDERED: Ketorolac Tromethamine 30 MG/ML VIAL IVP SCH (21:45)
[2020-01-03] MEDS ORDERED: traMADol HCl 50 MG TAB PO SCH (23:59)
[2020-01-04] MEDS: Acetaminophen 500 MG TAB PO SCH ×4 (00:15→17:27)
[2020-01-04] MEDS ORDERED: traMADol HCl 50 MG TAB PO PRN (00:23)
[2020-01-04] MEDS ORDERED: traMADol HCl 50 MG TAB PO SCH (00:30)
--- NOTE | 2020-01-04 00:41 | PRG ---
DATE OF SERVICE: 01/03/2020 SUBJECTIVE: The patient was seen during evening rounds, resting comfortably. The patient nurse did call earlier in the evening reporting that the patient was having continued pain to his shoulder and back. The patient received tramadol earlier and nothing else was scheduled for pain. The patient later was resting comfortably, in no distress. Vital signs, stable and the patient is afebrile. Urinary output is adequate for age and weight. PLAN: Continue supportive care and pain regimen. Increase physical and occupational therapy. We will discontinue aspirin per Neurosurgery recommendations. Regular diet as tolerated. Job ID: [id number] [facility]
[2020-01-04] MEDS: traMADol HCl 50 MG TAB PO SCH ×3 (05:29→17:30)
[2020-01-04] MEDS ORDERED: Ibuprofen 600 MG TAB PO PRN (06:00)
[2020-01-04] MEDS: Cyclobenzaprine 10 MG TAB PO PRN ×2 (08:19→19:47)
[2020-01-04] MEDS: Famotidine 20 MG TAB PO SCH (08:19)
[2020-01-04] MEDS: Amlodipine 5 MG TAB PO SCH (08:19)
[2020-01-04] MEDS: Emtricitabine/Tenofovir 200-300 MG TAB PO SCH (08:20)
--- NOTE | 2020-01-04 15:20 | PRG ---
DATE OF SERVICE: 01/04/2020 SUBJECTIVE: The patient is currently on the Medicine floor. He was placed there as the beds were full in the surgical floor. He is hospital day 3, status post ground level fall, in which he sustained a left-sided subdural hematoma. He was admitted to the hospital for observation and pain control. Initially, he was admitted to the intermediate care unit for close neurosurgical evaluation and repeated exams. He had followup with a CT scan that was showing only a very minimal change. The patient remained GCS of 15. The patient is tolerating a diet, pain is controlled, and he has been working with Physical and Occupational Therapy. Of note, yesterday, the patient had a radiograph of his left knee done as he feels that it may have contributed to his fall as he has had chronic knee pain. That radiographs reviewed, a small tiny superior pole avulsion injury of his left patella. Orthopedics were consulted and they recommended weightbearing as tolerated in a knee immobilizer. PHYSICAL EXAMINATION: VITAL SIGNS: Temperature is 97.9, heart rate 90, blood pressure 136/75, respirations 14, oxygen saturation 95% on room air. GENERAL: The patient is resting comfortably in bed. He is awake, alert, conversant, and appropriate. Appears at his baseline. HEENT: The patient has decreased swelling in his occiput, where his previous contusion was. The abrasion that was noted earlier, appears to be healing without difficulty. LUNGS: Clear to auscultation bilaterally. HEART: Regular rate and rhythm. ABDOMEN: Soft, nontender, with active bowel sounds. EXTREMITIES: Neurovascular intact x4. The patient at this time. DIAGNOSTIC STUDIES: There are no labs or radiographs to review this morning. ASSESSMENT AND PLAN: 1. Status post ground level fall. 2. Left-sided subdural hematoma with loss of consciousness less than 5 minutes. 3. Scalp abrasion, improving. 4. Scalp hematoma, improving. 5. Soft tissue contusion, bilateral shoulders, improving. 6. Left superior pole of patella avulsion fracture, treated in knee immobilizer and weightbearing as tolerated. Plan will be to continue encouraging physical and occupational therapy, pain control regimen, and await final placement decision. Discussion was had with Case Management, notified us that the patient must be in the hospital 3 midnights, which is tonight. We are hoping to transfer him tomorrow. The evaluation and examination were done with Dr. Zarco during rounds this morning. Job ID: [id number]
[2020-01-05] MEDS: traMADol HCl 50 MG TAB PO SCH ×4 (00:03→17:49)
[2020-01-05] MEDS: Acetaminophen 500 MG TAB PO SCH ×4 (00:03→17:49)
--- NOTE | 2020-01-05 07:57 | PRG ---
DATE OF SERVICE: 01/04/2020 SUBJECTIVE: The patient is resting comfortably. Does report that he still having some 5/10 shoulder and neck pain since coming into the hospital. Reports that he has gotten up and walked around. Denies nausea or vomiting. He is eating and drinking well. States that he is ready to leave. The patient is passing gas and voiding. OBJECTIVE: VITAL SIGNS: Temperature 97.7, pulse 64 beats per minute, blood pressure 133/74, breathing 95 on room air, O2 saturating 95 on room air. GENERAL: The patient is resting comfortably in bed, sitting up. He is appropriate. HEENT: Head is normocephalic with a contusion and small hematoma on the occiput with a small abrasion that is not bleeding. Eyes are PERRLA bilaterally. NECK: Nontender. Trachea is midline. CHEST: Clear to auscultation with good inspiratory and expiratory effort. HEART: Regular rate and rhythm. ABDOMEN: Soft, flat, nontender with active bowel sounds. EXTREMITIES: Neurovascularly intact x4. BACK: The patient has tenderness to palpation to his upper trapezius muscles. LABORATORY FINDINGS: Blood sugars 94. X-ray of the left knee shows fracture with associated posttraumatic changes in the joint and soft tissues, fracture involving the superior aspect of the patella. ASSESSMENT: 1. Status post ground level fall. 2. Left-sided subdural hematoma with loss of consciousness less than 5 minutes. 3. Left superior avulsion of the patella. 4. Scalp abrasion. 5. Scalp hematoma. 6. Soft-tissue contusion, bilateral shoulders. PLAN: Ortho reports that the left knee superior pole avulsion fracture of the patella is nonsurgical and placed in knee immobilizer, noted that he will wear in bed. He may also weightbear as tolerated as long as he is in extension in the knee immobilizer, reported they will follow up with him in clinic in 3 to 4 weeks. Continue supportive care and pain regimen. Increase physical and occupational therapy. Pending placement likely tomorrow with Case Management arranging. Patient was seen and evaluated by Dr. Zarco during morning rounds. Discussed plan of care with the patient and family who are in agreement. Job ID: [id number] MTDD
[2020-01-05] MEDS ORDERED: Senokot S 8.6-50 MG TAB PO SCH (09:00)
[2020-01-05] MEDS ORDERED: Polyethylene Glycol 3350 17 GM Packet PO SCH (09:00)
[2020-01-05] MEDS: Amlodipine 5 MG TAB PO SCH (10:02)
[2020-01-05] MEDS: Emtricitabine/Tenofovir 200-300 MG TAB PO SCH (10:02)
--- NOTE | 2020-01-05 15:38 | DIS ---
DATE OF ADMISSION: 01/02/2020 DATE OF DISCHARGE: 01/05/2020 ADMISSION DIAGNOSES: Ground level fall, subdural hemorrhage, and left-sided patellar fracture. DISCHARGE DIAGNOSES: Ground level fall, subdural hemorrhage, and left-sided patellar fracture. CONSULTING PHYSICIAN: Dr. Roldan of Orthopedic Surgery and Dr. Sadler of Neurosurgery. PROCEDURES: None. HOSPITAL COURSE: The patient is a 69-year-old male, who presented to the emergency department after a ground level fall. He was found to have a subdural hemorrhage and a left-sided patellar fracture. He was evaluated by Dr. Sadler's Team. Repeat CT of the brain was stable. The patient's neurological function was intact. GCS remained 15. [place] collar was discontinued and patient was advised by Dr. Sadler to follow up in 4 weeks with a repeat CT of the brain. Dr. Roldan, Orthopedic surgery, also evaluated the patient for the left patellar fracture. He recommended non-operative management, weightbearing as tolerated to the left with a left-sided knee immobilizer and follow up in 3 to 4 weeks. The patient remained in the hospital for 3 midnights and was ultimately [facility] in [place]. At the time of discharge, the patient's pain was well controlled. He was tolerating a regular diet and working with Physical and Occupational Therapy. He was voiding without difficulties. DISCHARGE DISPOSITION: [facility] in [place]. DISCHARGE CONDITION: Satisfactory. PHYSICAL EXAMINATION: VITAL SIGNS: Temperature 97.8, pulse 74, respirations 18, oxygen saturation 96% on room air, blood pressure 147/78. GENERAL: Well-appearing elderly male, lying in bed with no signs of acute distress. PULMONARY: Equal chest rise and fall. No signs of acute respiratory distress. CARDIAC: Regular rate and rhythm. NEUROLOGIC: GCS is 15. DISCHARGE INSTRUCTIONS: The patient was discharged to a penitentiary facility. Activity as tolerated. Weightbearing as tolerated with his left lower extremity and knee immobilizer. He will have a regular diet, PT/OT, as well as incentive spirometry and walker. DISCHARGE MEDICATIONS: Include, 1. Tylenol. 2. Amlodipine. 3. Flexeril. 4. Truvada. 5. MiraLAX. 6. Senokot S. 7. Tramadol. FOLLOWUP APPOINTMENTS: The patient will follow up in clinic with Dr. Sadler in 4 weeks. He will complete a repeat CT of the brain before that time. Follow up in clinic with Dr. Roldan in 2 to 3 weeks. No followup is needed with Dr. Zarco in [facility]. This is a summary of the patient's hospitalization. For full details, please see his medical record in its entirety. The patient was seen and evaluated by Dr. Zarco and myself on the day of discharge. Job ID: [id number]
[2020-01-05 16:38] VITALS: BP 147/83; TEMP 98.1
--- NOTE | 2020-01-06 06:38 | PRG ---
DATE OF SERVICE: 01/05/2020 SUBJECTIVE: The patient is resting comfortably in bed. Reports that his shoulder and neck pain has improved over the course of his stay. States that he has gotten up and walked around. Denies nausea or vomiting. Eating and drinking well. The patient has passed gas, but has not yet had a bowel movement. OBJECTIVE: VITAL SIGNS: Temperature 97.8 Fahrenheit, pulse 74 beats per minute, respiratory rate 18, O2 saturation 96 on room air, blood pressure 147/78. GENERAL: The patient is resting comfortably in bed, sitting up. He is appropriate. HEENT: Head is normocephalic with a contusion and small hematoma on the occiput. A small abrasion that is healing. Eyes are PERRLA bilaterally. NECK: Nontender. Trachea is midline. CHEST: Clear to auscultation with good inspiratory and expiratory effort. HEART: Regular rate and rhythm. ABDOMEN: Soft, flat, nontender with hypoactive bowel sounds. EXTREMITIES: Neurovascular intact x4. BACK: The patient has tenderness to palpation in his upper trapezius muscles. LABORATORY FINDINGS: Glucose 89. ASSESSMENT: 1. Status post ground level fall. 2. Left-sided subdural hematoma with loss of consciousness less than 5 minutes. 3. Left superior avulsion of the patella. 4. Scalp abrasion. 5. Scalp hematoma. 6. Soft tissue contusion, bilateral shoulders. PLAN: 1. We have added a bowel regimen including Senokot and MiraLAX. 2. The patient will continue wearing knee immobilizer per Ortho recommendations. Weightbearing as tolerated as long as he has immobilizer on. They will follow up with him in 3 to 4 weeks. 3. Continue supportive care and pain regimen. 4. Continue PT, OT. 5. Pending placement likely today, Case Management is arranging. 6. The patient was seen and evaluated by Dr. Zarco during morning rounds. Discussed plan of care with the patient and family who are in agreement. Job ID: [id number]
== END 2020-01-05 17:55 | DRG 86 ==
LOC: ERS 19:21 → IMCU/EMU 21:05 → T4-A 01-03 14:47
PROVIDERS: ADMIT Surgery; ATTEND Surgery
DX: S06.5X1A Traumatic subdural hemorrhage with loss of consciousness of 30 minutes or less, initial encounter (principal); S82.002A Unspecified fracture of left patella, initial encounter for closed fracture; W01.0XXA Fall on same level from slipping, tripping and stumbling without subsequent striking against object, initial encounter; E78.5 Hyperlipidemia, unspecified; S00.01XA Abrasion of scalp, initial encounter; S40.012A Contusion of left shoulder, initial encounter; S40.011A Contusion of right shoulder, initial encounter; Z20.828 Contact with and (suspected) exposure to other viral communicable diseases; Z21 Asymptomatic human immunodeficiency virus [HIV] infection status; I10 Essential (primary) hypertension; F17.210 Nicotine dependence, cigarettes, uncomplicated; R40.2413 Glasgow coma scale score 13-15, at hospital admission; Z79.899 Other long term (current) drug therapy; Z79.82 Long term (current) use of aspirin
CPT/HCPCS: 36415; 36416; 70450; 71045; 72125; 80053; 85025; 85610; 85730; 87635; 96374; G0390; J1885; J2270; U0003

== ENCOUNTER 2020-02-03 09:38 | Outpatient (CLI) | payer MEDICARE, MEDICAID ==
--- NOTE | 2020-02-03 10:33 | CT ---
CT HEAD WITHOUT CONTRAST: Date: 02/03/2020 INDICATION: Follow-up subdural hematoma. Comparison made to exam of 01/03/2020. FINDINGS: The subdural hematoma over the left convexity is again seen. It is decreased in size and is now becom ing iso to hypodense indicating evolution of the blood product. The falcine subdural seen anteriorly on the prior exam has significantly regressed. No significant mass effect or midline shift seen today. IMPRESSION: Left subdural hematoma and anterior falcine subdural shows regression when compared to 01/03/2020. Patel bdural along the left convexity remains, measuring in the 5-6 mm range of thickness. There is no midl ine shift. Subdural is now iso to hypodense. POS: OFF
== END 2020-02-03 09:39 | disposition home or self-care (01) ==
LOC: TBSIIMAG 09:38
PROVIDERS: ATTEND Neurological Surgery
DX: S06.5X0A Traumatic subdural hemorrhage without loss of consciousness, initial encounter (principal)
CPT/HCPCS: 70450

== ENCOUNTER 2021-02-13 04:13 | Emergency (ER) | payer MEDICARE, MEDICAID ==
[2021-02-13] MEDS ORDERED: Haloperidol Lactate 5 MG/ML VIAL ONE (04:31)
[2021-02-13] MEDS ORDERED: Lorazepam 2 MG/ML VIAL ONE (05:10)
[2021-02-13 05:21] LABS: #Eosinphils 0.2 thou/uL (0.0-0.7); #Lymphocytes 1.5 thou/uL (1.20-3.40); #Monocytes 0.5 thou/uL (0.11-0.59); %Basophils 0.9 % (0.0-1.0); %Eosinophils 5.3 % (0.0-10.0); %Monocytes 11.9 % (0.0-10.0); Hemoglobin 13.8 g/dL (14.0-18.0); Mean Corpuscular HGB CONC 33.2 g/dL (32.0-36.0); Mean Corpuscular Hemoglobin 31.6 pg (27.0-31.0); Mean Corpuscular Volume 95.2 fL (78.0-98.0); Mean Platelet Volume 7.1 fL (7.4-10.4); Platelet Count 158 thou/uL (130-400); RBC Distribution Width 12.3 % (11.5-14.5); Red Blood Cell (RBC) Count 4.37 mill/uL (4.70-6.10); White Blood Cell (WBC) Count 4.3 thou/uL (4.8-10.8)
[2021-02-13 05:36] LABS: PTT 23.9 sec (22.9-36.1); Prothrombin Time 12.9 sec (12.0-14.7)
[2021-02-13 05:39] LABS: ALT (SGPT) 10 U/L (8-55); AST (SGOT) 24 U/L (5-34); Alkaline Phosphatase 122 U/L (40-110); Anion Gap 15 mmol/L (10-20); BUN (Urea Nitrogen) 8 mg/dL (8.4-25.7); Bilirubin, Total 0.4 mg/dL (0.2-1.2); Calc. Creatinine Clearance 0 mL/min (70-130); Carbon Dioxide 22 mmol/L (23-31); Chloride 104 mmol/L (98-107); Globulin 3.4 g/dL (2.4-3.5); Glucose 102 mg/dL (80-115); Potassium 4.3 mmol/L (3.5-5.1); Protein, Total 7.4 g/dL (5.8-8.1); Sodium 137 mmol/L (136-145)
[2021-02-13 05:41] LABS: Acetaminophen Less than 6.0 mcg/mL (10.0-30.0); Alcohol Less than 10 mg/dL (Less than 10); Salicylate Less than 8.0 mg/dL (15.0-30.0)
[2021-02-13] MEDS ORDERED: levETIRAcetam in NS 100 ML ONE (11:32)
== END 2021-02-13 12:55 | disposition home or self-care (01) ==
LOC: ERS 04:13
DX: R56.9 Unspecified convulsions (principal); B20 Human immunodeficiency virus [HIV] disease; Z79.82 Long term (current) use of aspirin; I10 Essential (primary) hypertension; E78.5 Hyperlipidemia, unspecified; F17.210 Nicotine dependence, cigarettes, uncomplicated
CPT/HCPCS: 36415; 70450; 80053; 80307; 85025; 85610; 85730; 93005; 96365; 96375; J1630; J1953; J2060

== ENCOUNTER 2022-04-28 20:53 | Emergency (ER) | payer OTHER, MEDICAID ==
[2022-04-28 22:03] LABS: #Eosinphils 0.1 thou/uL (0.0-0.7); #Lymphocytes 3.1 thou/uL (1.20-3.40); #Monocytes 0.7 thou/uL (0.11-0.59); #Neutrophils 4.7 thou/uL (1.40-6.50); %Basophils 0.4 % (0.0-1.0); %Eosinophils 1.3 % (0.0-10.0); %Lymphocytes 35.6 % (21.0-51.0); %Monocytes 8.1 % (0.0-10.0); %Neutrophils 54.6 % (42.0-75.0); Hemoglobin 16.1 g/dL (14.0-18.0); Mean Corpuscular HGB CONC 32.1 g/dL (32.0-36.0); Mean Corpuscular Hemoglobin 29.7 pg (27.0-31.0); Mean Corpuscular Volume 92.5 fl (78.0-98.0); Mean Platelet Volume 7.7 fL (7.4-10.4); Platelet Count 237 10x3/uL (130-400); Red Blood Cell (RBC) Count 5.43 mill/uL (4.70-6.10); White Blood Cell (WBC) Count 8.7 10x3/uL (4.8-10.8)
[2022-04-28 22:22] LABS: ALT (SGPT) 23 U/L (8-55); AST (SGOT) 35 U/L (5-34); Albumin 4.5 g/dL (3.4-4.8); Alkaline Phosphatase 127 U/L (40-110); Anion Gap 21 mmol/L (10-20); BUN (Urea Nitrogen) 31 mg/dL (8.4-25.7); Bilirubin, Total 0.9 mg/dL (0.2-1.2); Calc. Creatinine Clearance 0 mL/min (70-130); Calcium 9.9 mg/dL (7.8-10.44); Carbon Dioxide 22 mmol/L (23-31); Chloride 100 mmol/L (98-107); Estimated GFR 74; Globulin 4.1 g/dL (2.4-3.5); Glucose 193 mg/dL (83-110); Protein, Total 8.6 g/dL (5.8-8.1); Sodium 139 mmol/L (136-145)
== END 2022-04-29 07:53 | disposition home or self-care (01) ==
LOC: ERS 20:53
DX: R53.1 Weakness (principal); I10 Essential (primary) hypertension; E78.5 Hyperlipidemia, unspecified; B20 Human immunodeficiency virus [HIV] disease; F17.210 Nicotine dependence, cigarettes, uncomplicated; Z79.82 Long term (current) use of aspirin; Z79.899 Other long term (current) drug therapy
CPT/HCPCS: 36415; 70450; 71045; 80053; 84484; 85025; 93005